=== PATIENT | female | born 1935 | race Caucasian/White ===

== ENCOUNTER 2017-10-15 18:14 | Emergency (ER) | payer MEDICARE ==
[2017-10-15] MEDS ORDERED: NS 0.9% 1000 ML* 1,000 ML IV ONE (19:11)
[2017-10-15 19:36] LABS: ABS Basophils 0.1 10^3/ul (0-0.2); ABS Eosinophils 0.2 10^3/ul (0-0.6); ABS Lymphocytes 1.9 10^3/ul (1.0-4.8); ABS Monocytes 0.8 10^3/ul (0-0.8); ABS Neutrophils 5.5 10^3/ul (1.5-7.7); ABS Nucleated RBC 0 10^3/ul; Eosinophil % 1.9 % (0-6); Hematocrit 39 % (35-47); Hemoglobin 13.2 g/dl (12.0-16.0); Lymphocyte % 22.8 % (25-47); Mean Corpuscular HGB Conc 34 g/dl (31-36); Mean Corpuscular Hemoglobin 29 pg (27-31); Mean Corpuscular Volume 86 fL (80-97); Mean Platelet Volume 8 um3 (7.4-10.4); Nucleated Red Blood Cells % 0.1; Platelet Count 246 10^3/ul (150-450); Red Blood Count 4.52 10^6/ul (4.0-5.4); Red Cell Distribution Width 14 % (10.5-15); White Blood Count 8.4 10^3/ul (3.5-10.8)
[2017-10-15 19:46] LABS: INR 0.91 (0.77-1.02)
[2017-10-15 19:50] LABS: EGFR Non-African American 35.6 (>60)
--- NOTE | 2017-10-15 21:17 | ED ---
Genny Stone Julia, scribed for Que Hutchinson MD on 10/15/17 at 1914 . GI/ HPI - HPI Summary HPI Summary: This patient is a 82 year old F presenting to [facility] accompanied by her daughter with a chief complaint of four bouts of rectal bleeding beginning at 17:45 . She states the first time was dark red blood with bright red blood since. Patient denies abdominal pain, dizziness, and changes in bowel habits. She had a colon resection in 2007 and has a history of diverticulitis. She is not on blood thinners. - History of Current Complaint Chief Complaint: EDGIBleed Stated Complaint: RECTAL BLEEDING Hx Obtained From: Patient Onset/Duration: Started Hours Ago Timing: Constant Vaginal Bleeding Description: Bright Red Pain Intensity: 0 Location of Pain: None Associated Signs and Symptoms: Positive: Other: - no bowel changes. Negative: Dizziness, Abdominal Pain - Allergy/Home Medications Allergies/Adverse Reactions: Allergies Allergy/AdvReac Type Severity Reaction Status Date / Time Sulfa (Sulfonamide Allergy See Comment Verified 10/15/17 19:18 Antibiotics) Home Medications: Home Medications L.acidoph,Paracasei, B.lactis [Probiotic] 1 each PO DAILY 10/15/17 [History Confirmed 10/15/17] Multivitamins/Minerals TAB* [Theragran/minerals TAB*] 1 tab PO DAILY 10/15/17 [ History Confirmed 10/15/17] PMH/Surg Hx/FS Hx/Imm Hx Endocrine/Hematology History: Denies: Hx Diabetes Cardiovascular History: Denies: Hx Hypertension, Hx Pacemaker/ICD Sensory History: Denies: Hx Hearing Aid Psychiatric History: Denies: Hx Panic Disorder - Surgical History Surgery Procedure, Year, and Place: RIGHT HIP. CATARACTS. RT LEG SURGERY WITH JOSE ROBERTO AND 7 SCREWS Infectious Disease History: No Infectious Disease History: Denies: Traveled Outside the [place] in Last 30 Days - Family History Known Family History: Negative: Cardiac Disease, Diabetes - Social History Occupation: Retired Review of Systems Gastrointestinal: Other - rectal bleeding Positive: Other - bowel changes. Negative: Abdominal Pain Neurological: Negative - dizziness All Other Systems Reviewed And Are Negative: Yes Physical Exam - Summary Physical Exam Summary: Appearance: Well appearing, no pain distress Skin: warm, dry, reflects adequate perfusion Head/face: normal Eyes: EOMI, MARY ENT: normal Neck: supple, non-tender Respiratory: CTA, breath sounds present Cardiovascular: RRR, pulses symmetrical Abdomen: non-tender, soft Bowel: present Musculoskeletal: normal, strength/ROM intact Neuro: normal, sensory motor intact, A&Ox3 Rectal Exam: bright red blood per rectum, no rectal masses Triage Information Reviewed: Yes Vital Signs On Initial Exam: Initial Vitals Temp Pulse Resp BP Pulse Ox 97.6 F 106 17 191/91 95 10/15/17 18:25 10/15/17 18:25 10/15/17 18:25 10/15/17 18:25 10/15/17 18:25 Vital Signs Reviewed: Yes Diagnostics - Vital Signs Vital Signs Temp Pulse Resp BP Pulse Ox 10/15/17 18:25 97.6 F 106 17 191/91 95 - Laboratory Lab Results: Lab Results 10/15/17 10/15/17 10/15/17 Range/Units 19:27 19:27 19:27 WBC 8.4 (3.5-10.8) 10^3/ul RBC 4.52 (4.0-5.4) 10^6/ul Hgb 13.2 (12.0-16.0) g/dl Hct 39 (35-47) % MCV 86 (80-97) fL MCH 29 (27-31) pg MCHC 34 (31-36) g/dl RDW 14 (10.5-15) % Plt Count 246 (150-450) 10^3/ul MPV 8 (7.4-10.4) um3 Neut % (Auto) 65.1 (38-83) % Lymph % (Auto) 22.8 L (25-47) % Reeves % (Auto) 9.1 H (0-7) % Eos % (Auto) 1.9 (0-6) % Baso % (Auto) 1.1 (0-2) % Absolute Neuts (auto) 5.5 (1.5-7.7) 10^3/ul Absolute Lymphs (auto) 1.9 (1.0-4.8) 10^3/ul Absolute Monos (auto) 0.8 (0-0.8) 10^3/ul Absolute Eos (auto) 0.2 (0-0.6) 10^3/ul Absolute Basos (auto) 0.1 (0-0.2) 10^3/ul Absolute Nucleated RBC 0 10^3/ul Nucleated RBC % 0.1 INR (Anticoag Therapy) 0.91 (0.77-1.02) Sodium 137 (133-145) mmol/L Potassium 4.2 (3.5-5.0) mmol/L Chloride 102 (101-111) mmol/L Carbon Dioxide 28 (22-32) mmol/L Anion Gap 7 (2-11) mmol/L BUN 25 H (6-24) mg/dL Creatinine 1.42 H (0.51-0.95) mg/dL Est GFR ( Amer) 45.8 (>60) Est GFR (Non-Af Amer) 35.6 (>60) BUN/Creatinine Ratio 17.6 (8-20) Glucose 109 H (70-100) mg/dL Calcium 9.5 (8.6-10.3) mg/dL Total Bilirubin 0.30 (0.2-1.0) mg/dL AST 18 (13-39) U/L ALT 11 (7-52) U/L Alkaline Phosphatase 76 (34-104) U/L Total Protein 7.5 (6.4-8.9) g/dL Albumin 4.3 (3.2-5.2) g/dL Globulin 3.2 (2-4) g/dL Albumin/Globulin Ratio 1.3 (1-3) Blood Type Antibody Screen 10/15/17 Range/Units 19:27 WBC (3.5-10.8) 10^3/ul RBC (4.0-5.4) 10^6/ul Hgb (12.0-16.0) g/dl Hct (35-47) % MCV (80-97) fL MCH (27-31) pg MCHC (31-36) g/dl RDW (10.5-15) % Plt Count (150-450) 10^3/ul MPV (7.4-10.4) um3 Neut % (Auto) (38-83) % Lymph % (Auto) (25-47) % Reeves % (Auto) (0-7) % Eos % (Auto) (0-6) % Baso % (Auto) (0-2) % Absolute Neuts (auto) (1.5-7.7) 10^3/ul Absolute Lymphs (auto) (1.0-4.8) 10^3/ul Absolute Monos (auto) (0-0.8) 10^3/ul Absolute Eos (auto) (0-0.6) 10^3/ul Absolute Basos (auto) (0-0.2) 10^3/ul Absolute Nucleated RBC 10^3/ul Nucleated RBC % INR (Anticoag Therapy) (0.77-1.02) Sodium (133-145) mmol/L Potassium (3.5-5.0) mmol/L Chloride (101-111) mmol/L Carbon Dioxide (22-32) mmol/L Anion Gap (2-11) mmol/L BUN (6-24) mg/dL Creatinine (0.51-0.95) mg/dL Est GFR ( Amer) (>60) Est GFR (Non-Af Amer) (>60) BUN/Creatinine Ratio (8-20) Glucose (70-100) mg/dL Calcium (8.6-10.3) mg/dL Total Bilirubin (0.2-1.0) mg/dL AST (13-39) U/L ALT (7-52) U/L Alkaline Phosphatase (34-104) U/L Total Protein (6.4-8.9) g/dL Albumin (3.2-5.2) g/dL Globulin (2-4) g/dL Albumin/Globulin Ratio (1-3) Blood Type B Positive Antibody Screen Negative Result Diagrams: 10/15/17 19:27 10/15/17 19:27 Lab Statement: Any lab studies that have been ordered have been reviewed, and results considered in the medical decision making process. GIGU Course/Dx - Course Course Of Treatment: Patient presents with four bouts of rectal bleeding with bright red blood since 17:45 today. Rectal exam reveals bright red blood without masses. Bloodowork is unremarkable. Patient is given IV fluids. Due to lack of Gastrointestinal coverage patient will be transferred for a higher level of care. - Diagnoses Provider Diagnoses: Lower GI bleed, History of diverticulitis Discharge - Discharge Plan Condition: Fair Disposition: TRANS [facility] F[facility] Discharge Disposition Comment: transfer to [facility] for GI evaluation Referrals: Rupert Gil MD [Primary Care Provider] - The documentation as recorded by the Genny bundy Julia accurately reflects the service I personally performed and the decisions made by me, Que Hutchinson MD.
[2017-10-15 21:35] VITALS: BP 166/100
[2017-10-15] MEDS ORDERED: Albuterol HFA INHALER* 8 gm MDI INH ONE (21:42)
== END 2017-10-15 21:32 | disposition short-term general hospital (02) ==
LOC: ED 18:14
DX: K92.2 Gastrointestinal hemorrhage, unspecified (principal); Z87.19 Personal history of other diseases of the digestive system; Z88.2 Allergy status to sulfonamides
CPT/HCPCS: 36415; 80053; 85025; 85610; 86850; 86900; 86901; 96360; 96361; 99283; A9270-GY

== ENCOUNTER 2018-11-07 09:17 | Observation (INO) | payer MEDICARE ==
--- OUTSIDE RECORDS SUMMARY | 2018-11-07 09:37 | XMS REPORT | Continuity of Care Document ---
:1935 External Reference #:[id number] Author Name Rupert Gil MD Address [address] [place] [address] Care Team Providers Name Role Phone Rupert Gil MD Care Team Information Inspector Wreath Unavailable Payers Date Identification Numbers Payment Provider Subscriber Expires: 2015 Policy Number: [id number] [facility] Maria M Lindo Group Number: [id number] [address] PayID: [id number] [place] [address] Effective: 2015 Policy Number: [id number] [facility] Maria M Lindo PayID: [id number] [address] [place] [address] Advance Directives Description No Information Available Problems Date Description Provider Status Onset: 09/16/2013 Benign essential hypertension Karon Anne M.D., R.D. Active Family History Date Family Member(s) Observation Comments Father due to Cancer () Mother due to "Old Age" () Children 3 Children daughters Siblings 5 brothers and 1 sister Siblings 4 of 6 First Brother due to Cancer () Second Brother Hypertension Social History Type Date Description Comments Sex Unknown Marital Status Diet Healthy, Well Balanced Chicken and vegetables often. Drinks milk BID. Tobacco Use Start: Unknown current cigarette smoker Smoked a carton/week before sick. Now a carton/3 weeks. Started smoking at age 34. About a half a pack a day still as of 03/2011. Cigarette Use Quit - Age 76 Cold turkey after she broke her hip. ETOH Use Rarely consumes alcohol Tobacco Use Start: Unknown Patient is a current smoker, smokes every day Exercise Type/Frequency Exercises regularly in her living room. Walks in her mobile home. Does PT exercises for her legs. Allergies, Adverse Reactions, Alerts Date Description Reaction Status Severity Comments 09/27/2010 Sulfa Active Medications Medication Date Status Form Strength Qnty SIG Indications Ordering Provider Hydrochlorothiazid 11/04 Active Tablets 25mg 30tab 1 by mouth I10 Rupert e /2018 s every day MD Jeffery Aerochamber Plus 01/22 Active Misc 1unit use as J44.9 s directed Daniel, with MAT REPAIRER inhalers Proair HFA 12/02 Active Aerosol 108(90Bas 8.5un Inhale 1-2 Karon e) its Puffs Every rafaela Anne/Act 6 Hours as Charles, Needed. R.D. Acidophilus 08/26 Active Tablets Karon Probiotic /2013 Smiley Anne., R.D. Acetaminophen 01/01 Active prn pain Karon /2011 Charles Anne, R.D. Multivitamin & 09/27 Active Liquid Karon Mineral /2010 Smiley Anne., R.D. Incruse Ellipta Active Aerosol 62.5mcg/I Inhale One Unknown nh puff By Mouth Every Day For Chronic Obstructive Lung Disease Incruse Ellipta 01/23 Hx Aerosol 62.5mcg/I 60uni inhale one nh ts puff by Jeffery - mouth every , 02/24 day chronic obstructive lung disease Spiriva Respimat 01/22 Hx Aerosol 2.5mcg/Ac 8gm Inhale 2 J44.9 t puffs by Shortle, - mouth daily MAT REPAIRER 11/04 for chronic /2019 obstructive lung disease Spacer, Pediatric 01/22 Hx 1unit to use with J44.9 s inhalers Daniel, - MAT REPAIRER 01/22 Cipro 01/13 Hx Tablets 500mg 20tab 1 pill by R19.7 Shaw s mouth twice R. Storm, - a day for PIG FURNACE OPERATOR-C 01/23 10 Striverdi Respimat 12/16 Hx Aerosol 2.5mcg/Ac 4gm Inhale 2 J44.9 Rupert /2017 t puffs by Princeetcarmita - mouth daily , 01/23 for chronic /2017 obstructive lung disease Zyrtec Allergy 12/02 Hx Tablets 10mg 30tab 1 by mouth R05 s every day Jeffery - , 11/04 Colace 04/29 Hx Capsules 100mg 30cap 2 tab by K59.00 s mouth daily Jeffery - for a week , 11/04 Amoxicillin 05/07 Hx Tablets 875mg 20tab 1 tablet 785.6 s bid x 10 Pk, - days PIG FURNACE OPERATOR-C 08/26 Neomycin/Polymyxin 01/11 Hx Solution 3.5-57681 1bott 3 drops in 380.22 Shawnti / /2012 -1 le right ear RGenaro Portillo, - qid for 5 PIG FURNACE OPERATOR-C 08/26 days until resolved Ciprofloxacin 03/30 Hx 250mg 14uni 1 po bid Rashaun Flowers M.D., 01/01 R.D. /2011 Hydrocortisone/León 03/28 Hx Solution QS As directed Karon tic Acid Otic /2010 Genaro Anne M.D., 01/01 R.D. /2011 Calcium + D 09/27 Hx Tablets 600-200mg 1 po qd -Unit Rashaun Anne M.D., 11/06 R.D. /2017 Aspir-81 09/27 Hx Tablets 81mg 30tab 1 po qd Rashaun Askew M.D., 11/04 R.D. /2018 Vitamin B-12 09/27 Hx Tablets 1000mcg 1 po qd Rashaun Vu M.D., 04/29 R.D. /2015 Vitamin C 09/27 Hx Chewtabs 250mg Rashaun Anne M.D., 04/29 R.D. /2015 Hydrochlorothiazid 09/27 Hx Tablets 25mg 45tab / po qd Rashaun Womack M.D., 03/28 R.D. /2010 Stiolto Respimat Hx Aerosol 2.5-2.5mc J44.9 Unknown /0000 g/Act - 01/23 Immunizations CPT Code Status Date Vaccine Lot # [id number] Given 05/11/2003 Pneumovax 23 (PPSV23) 65+ years or high risk 2 to 64 year old [id number] Refused 01/13/2017 Influenza Virus Vaccine, Quadrivalent, 3 Yr > Quad , Preserv Free Vital Signs Date Vital Result Comment 11/04/2018 9:19am Weight 132.00 lb Weight 59.875 kg BP Systolic 150 mmHg BP Diastolic 80 mmHg Heart Rate 84 /min Body Temperature 97.7 F Respiratory Rate 20 /min 02/24/2018 2:18pm Weight 130.00 lb Weight 58.968 kg BP Systolic 160 mmHg BP Diastolic 72 mmHg Heart Rate 72 /min Body Temperature 98.2 F Respiratory Rate 16 /min 01/22/2018 4:15pm Weight 129.00 lb Weight 58.514 kg BP Systolic 168 mmHg BP Diastolic 92 mmHg Heart Rate 100 /min Body Temperature 98.7 F Respiratory Rate 16 /min O2 % BldC Oximetry 94 % 11/06/2017 9:03am Weight 128.00 lb Weight 58.061 kg BP Systolic 160 mmHg BP Diastolic 80 mmHg Heart Rate 88 /min Body Temperature 97.3 F Respiratory Rate 15 /min O2 % BldC Oximetry 98 % 01/23/2017 2:26pm Weight 126.00 lb Weight 57.154 kg BP Systolic 146 mmHg BP Diastolic 78 mmHg Heart Rate 92 /min Body Temperature 98.4 F Respiratory Rate 24 /min O2 % BldC Oximetry 92 % 01/13/2017 3:46pm Weight 127.00 lb Weight 57.607 kg BP Systolic 130 mmHg BP Diastolic 68 mmHg Heart Rate 91 /min Body Temperature 99.1 F Respiratory Rate 24 /min O2 % BldC Oximetry 93 % 12/16/2016 11:46am Weight 129.00 lb Weight 58.514 kg BP Systolic 148 mmHg BP Diastolic 88 mmHg Heart Rate 98 /min Body Temperature 99.3 F Respiratory Rate 18 /min O2 % BldC Oximetry 97 % 12/02/2016 2:51pm Weight 129.00 lb Weight 58.514 kg BP Systolic 170 mmHg BP Diastolic 82 mmHg Heart Rate 104 /min Body Temperature 99.3 F O2 % BldC Oximetry 92 % 97 after treatment 04/29/2016 10:45am Weight 129.00 lb Weight 58.514 kg BP Systolic 148 mmHg BP Diastolic 78 mmHg Heart Rate 98 /min Body Temperature 98.2 F Respiratory Rate 17 /min O2 % BldC Oximetry 98 % 11/27/2015 11:26am Weight 129.00 lb Weight 58.514 kg BP Systolic 150 mmHg BP Diastolic 93 mmHg Heart Rate 96 /min Body Temperature 99.7 F O2 % BldC Oximetry 96 % 08/26/2013 9:25am Weight 132.00 lb Weight 59.875 kg BP Systolic 166 mmHg BP Diastolic 78 mmHg Heart Rate 116 /min Height 63.5 inches 5'3.50" BMI (Body Mass Index) 23.0 kg/m2 05/07/2013 2:52pm Weight 130.00 lb Weight 58.968 kg BP Systolic 130 mmHg BP Diastolic 80 mmHg Heart Rate 88 /min Body Temperature 98.6 F 01/11/2013 4:50pm Weight 131.00 lb Weight 59.422 kg BP Systolic 162 mmHg BP Diastolic 68 mmHg Heart Rate 88 /min Body Temperature 99.9 F 01/02/2012 2:27pm Weight 116.00 lb Weight 52.618 kg BP Systolic 120 mmHg BP Diastolic 72 mmHg Heart Rate 80 /min Body Temperature 99.0 F 03/28/2011 1:20pm Weight 111.00 lb Weight 50.350 kg BP Systolic 130 mmHg BP Diastolic 60 mmHg Heart Rate 96 /min Height 63.5 inches 5'3.50" BMI (Body Mass Index) 19.4 kg/m2 09/27/2010 10:51am Weight 113.00 lb Weight 51.257 kg BP Systolic 144 mmHg BP Diastolic 50 mmHg Heart Rate 96 /min Height 63.5 inches 5'3.50" BMI (Body Mass Index) 19.7 kg/m2 Results Test Date Facility Test Result H/L Range Note Laboratory test 11/04/2018 [facility] Vitamin B12 < pending> finding [phone] Folic Acid (Folate) <pending> Laboratory test 11/06/2017 [facility] Hemoglobin 11.1 finding (607)- - CBC Auto Diff 10/15/2017 [facility] White Blood Count 8.4 10^3/uL N 3.5-10. 3 [phone] Red Blood Count 4.52 10^6/uL N 4.0-5.4 Hemoglobin 13.2 g/dL N 12.0-16.0 Hematocrit 39 % N 35-47 Mean Corpuscular Volume 86 fL N 80-97 Mean Corpuscular Hemoglobin 29 pg N 27-31 Mean Corpuscular HGB Conc 34 g/dL N 31-36 Red Cell Distribution Width 14 % N 10.5-15 Platelet Count 246 10^3/uL N 150-450 Mean Platelet Volume 8 um3 N 7.4-10.4 Abs Neutrophils 5.5 10^3/uL N 1.5-7.7 Abs Lymphocytes 1.9 10^3/uL N 1.0-4.8 Abs Monocytes 0.8 10^3/uL N 0-0.8 Abs Eosinophils 0.2 10^3/uL N 0-0.6 Abs Basophils 0.1 10^3/uL N 0-0.2 Abs Nucleated RBC 0 10^3/uL Granulocyte % 65.1 % N 38-83 Lymphocyte % 22.8 % Low 25-47 Monocyte % 9.1 % High 0-7 Eosinophil % 1.9 % N 0-6 Basophil % 1.1 % N 0-2 Nucleated Red Blood Cells % 0.1 Inr/Protime 10/15/2017 [facility] Inr 0.91 N 0.77- 1.02 [phone] Type & Screen 10/15/2017 [facility] Patient Blood B Positive [phone] Type Antibody Screen NEGATIVE Comp Metabolic Panel 10/15/2017 [facility] Sodium 137 mmol/L N 133-145 [phone] Potassium 4.2 mmol/L N 3.5-5.0 Chloride 102 mmol/L N 101-111 Co2 Carbon Dioxide 28 mmol/L N 22-32 Anion Gap 7 mmol/L N 2-11 Glucose 109 mg/dL High 70-100 Blood Urea Nitrogen 25 mg/dL High 6-24 Creatinine 1.42 mg/dL High 0.51-0.95 BUN/Creatinine Ratio 17.6 N 8-20 Calcium 9.5 mg/dL N 8.6-10.3 Total Protein 7.5 g/dL N 6.4-8.9 Albumin 4.3 g/dL N 3.2-5.2 Globulin 3.2 g/dL N 2-4 Albumin/Globulin Ratio 1.3 N 1-3 Total Bilirubin 0.30 mg/dL N 0.2-1.0 Alkaline Phosphatase 76 U/L N 34-104 Alt 11 U/L N 7-52 Ast 18 U/L N 13-39 Egfr Non- 35.6 >60 Egfr 45.8 >60 2 Laboratory test 01/14/2017 [facility] Fecal Lactoferrin SEE RESULT 3 finding [phone] (Stool WBC) BELOW C Difficile PCR SEE RESULT BELOW 4 Stool Panel (CMC) 01/13/2017 [facility] Stool Culture <pending> [phone] Fecal Lactoferrin (Stool WBC) <pending> O&P Ova & Parasites Screen <pending> C Difficile PCR <pending> Stool Panel 04/29/2016 [facility] Stool For SEE RESULT 5 (CMC) [phone] Blood BELOW CBC Auto Diff 08/26/2013 [facility] White Blood 6.7 10^3/uL 4.8-10.8 [phone] Count Red Blood Count 5.20 10^6/uL 4.0-5.4 Hemoglobin 15.3 g/dL 12.0-16.0 Hematocrit 45 % 35-47 Mean Corpuscular Volume 87 fL 80-97 Mean Corpuscular Hemoglobin 29 pg 27-31 Mean Corpuscular HGB Conc 34 g/dL 31-36 Red Cell Distribution Width 14 % 10.5-15 Platelet Count 270 10^3/uL 150-450 Mean Platelet Volume 9 um3 7.4-10.4 Abs Neutrophils 4.2 10^3/uL 1.5-7.7 Abs Lymphocytes 1.8 10^3/uL 1.0-4.8 Abs Monocytes 0.6 10^3/uL 0-0.8 Abs Eosinophils 0.1 10^3/uL 0-0.6 Abs Basophils 0.1 10^3/uL 0-0.2 Abs Nucleated RBC 0 10^3/uL Granulocyte % 62.4 % 38-83 Lymphocyte % 27.2 % 25-47 Monocyte % 8.6 % 1-9 Eosinophil % 0.9 % 0-6 Basophil % 0.9 % 0-2 Nucleated Red Blood Cells % 0.1 Comp Metabolic Panel 08/26/2013 [facility] Sodium 137 mmol/L 133-145 [phone] Potassium 3.9 mmol/L 3.5-5.0 Chloride 101 mmol/L 101-111 Co2 Carbon Dioxide 27.0 mmol/L 22-32 Anion Gap 9.0 mmol/L 2-11 Glucose 96 mg/dL 70-100 Blood Urea Nitrogen 12 mg/dL 6-24 Creatinine 0.70 mg/dL 0.50-1.40 BUN/Creatinine Ratio 17.1 8-20 Calcium 10.5 mg/dL High 8.1-9.9 Total Protein 7.6 g/dL 6.2-8.1 Albumin 4.8 g/dL 3.2-5.2 Globulin 2.8 g/dL 2-4 Albumin/Globulin Ratio 1.7 1-3 Total Bilirubin 0.5 mg/dL 0.4-1.5 Alkaline Phosphatase 72 U/L 30-110 Alt 16 U/L 14-54 Ast 24 U/L 12-42 Egfr Non- 81.4 >60 Egfr 104.6 >60 6 Lipid Profile 08/26/2013 [facility] Triglycerides 137 mg/dL 40-200 (Trig/Chol/HDL) [phone] Cholesterol 265 mg/dL High Less than 200 HDL Cholesterol 75 mg/dL High 40-60 7 Cholesterol/HDL Ratio 3.5 Average 1-4.44 LDL Cholesterol 162.6 High Less Than 100 8 Urine DIP 08/26/2013 [facility] House [facility] Leukocytes NEG Neg (607)- - Urine Nitrites NEG Neg Urine pH 5 5-6 Total Protein, Urine NEG Neg Urine Glucose NORM Norm Urine Ketones NEG Neg Urobilinogen NORM Norm Urine Bilirubin NEG Neg Urine Blood NEG Neg Specific Seward 1.020 1.01-1.02 PT W/Inr 10/23/2011 [facility] Inr 0.94 0.88-1.13 9 [phone] Protime 11.1 SEC 10.3-13.5 10 Laboratory test 10/23/2011 [facility] PTT (Aptt) 23.2 SEC Low 25.1-38.5 finding [phone] Comp Metabolic 10/23/2011 [facility] Sodium 136 mmol/ L 135-145 Panel [phone] Potassium 3.5 mmol/L 3.5-5.0 Chloride 101 mmol/L 101-111 Co2 (Carbon Dioxide) 25.0 mmol/L 22-32 Anion Gap 10.0 mmol/L 2-11 11 Glucose 109 mg/dL High 70-100 BUN 16 mg/dL 6-24 Creatinine 0.6 mg/dL 0.50-1.40 One Over Creatinine 1.66 BUN/Creatinine Ratio 26.7 High 8-20 Calcium 8.5 mg/dL 8.1-9.9 Total Protein 6.5 GM/DL 6.2-8.1 Albumin 3.5 GM/DL 3.2-5.2 Globulin 3.0 GM/DL 2-4 Albumin/Globulin Ratio 1.2 1-3 Bilirubin Total 0.7 mg/dL 0.4-1.5 12 Alkaline Phosphatase 78 U/L 30-110 Alt (SGPT) 17 U/L 14-54 Ast (Sgot) 22 U/L 12-42 eGFR Non- 97.7 > 60 eGFR 125.7 > 60 13 Laboratory test 10/23/2011 [facility] Lipase 19 U/L Low 22-51 finding [phone] CBC Auto Diff 10/23/2011 [facility] White Blood 10.0 CUMM 4.8-10.8 [phone] Count Red Cell Count 3.81 CUMM Low 4.2-5.4 Hemoglobin 11.5 g/dL Low 12.0-16.0 Hematocrit 33 % Low 35-47 Mean Corpuscular Volume 87 um3 79-97 Mean Corpuscular Hemoglob 30 pg 27-31 Mean Corpuscular HGB Cone 35 g/dL 32-36 Redcell Distribution WDTH 14 % 10.5-15 Platelet Count 274 CUMM 150-450 Mean Platelet Volume 7.8 um3 7.4-10.4 14 Manual Differential 10/23/2011 [facility] Polysegmented 79 % 38-83 [phone] Neutrophil Lymphocyte 12 % Low 25-47 Monocyte 9 % 0-13 Absolute Neutrophil Count 7.9 RBC Morphology NORMAL Urinalysis 10/23/2011 [facility] Ua Color YELLOW Yellow W/Microscopic [phone] Appearance-Urine CLEAR Clear Specific Seward-Ur 1.005 Low 1.010-1.030 Esterase-Urine NEGATIVE Negative Nitrite NEGATIVE Negative Kricwihszogi-Un-BYG NEGATIVE Negative Protein-Urine NEGATIVE Negative PH-Urine 6.5 5-9 Blood-Urine TRACE Abnormal Negative Ketones-Urine NEGATIVE Negative Bilirubin-Ur NEGATIVE Negative Glucose-Urine NEGATIVE Negative WBC-Urine 0-2 0-5 RBC-Urine RARE 0-2 Epith Cells-Ur SMALL None Bacteria-Urine 1+ None Laboratory test 07/18/2011 [facility] PTT (Aptt) 22.3 Low 25.15-38.53 finding [phone] CBC Auto Diff 07/18/2011 [facility] White Blood 13.7 CUMM High 4.8-10.8 [phone] Count Red Cell Count 4.27 CUMM 4.2-5.4 Hemoglobin 13.2 g/dL 12.0-16.0 Hematocrit 38 % 35-47 Mean Corpuscular Volume 90 um3 79-97 Mean Corpuscular Hemoglob 31 pg 27-31 Mean Corpuscular HGB Cone 34 g/dL 32-36 Redcell Distribution WDTH 13 % 10.5-15 Platelet Count 251 CUMM 150-450 Mean Platelet Volume 8.1 um3 7.4-10.4 15 Manual 07/18/2011 [facility] Polysegmented 91 % High 38-83 Differential [phone] Neutrophil Lymphocyte 7 % Low 25-47 Monocyte 2 % 0-13 Absolute Neutrophil Count 12.4 RBC Morphology NORMAL PT W/Inr 07/18/2011 [facility] Inr 0.98 0.88-1.13 16 [phone] Protime 11.5 SEC 10.3-13.5 17 Urinalysis 03/28/2011 [facility] Ua Color YELLOW Yellow W/Microscopic [phone] Appearance-Urine CLEAR Clear Specific Seward-Ur 1.023 1.010-1.030 Esterase-Urine 2+ Abnormal Negative Nitrite NEGATIVE Negative Rtqccprudrqq-Aq-KYZ NEGATIVE Negative Protein-Urine NEGATIVE Negative PH-Urine 6.0 5-9 Blood-Urine NEGATIVE Negative Ketones-Urine NEGATIVE Negative Bilirubin-Ur NEGATIVE Negative Glucose-Urine NEGATIVE Negative WBC-Urine 15-20 Abnormal 0-5 RBC-Urine 0-2 0-2 Epith Cells-Ur FEW None Bacteria-Urine TRACE None Sensitivities For Urine 03/28/2011 [facility] Ampicillin >=32 R Culture [phone] Amikacin <=2 S Ciprofloxacin <=0.25 S Ceftriaxone <=1 S Cefazolin 16 I Nitrofurantoin <=16 S Gentamicin <=1 S Imipenem <=1 S Levofloxacin <=0.12 S Trimeth-Sulfa <=20 S Ceftazidime <=1 S Tigecycline <=0.5 S Piperacillin/Tazobactam KB 29 S CBC Auto Diff 03/28/2011 [facility] White Blood 8.1 CUMM 4.8-10.8 18 [phone] Count Red Cell Count 4.73 CUMM 4.2-5.4 Hemoglobin 14.4 g/dL 12.0-16.0 Hematocrit 43 % 35-47 Mean Corpuscular Volume 90 um3 79-97 Mean Corpuscular Hemoglob 31 pg 27-31 Mean Corpuscular HGB Cone 34 g/dL 32-36 Redcell Distribution WDTH 14 % 10.5-15 Platelet Count 251 CUMM 150-450 Mean Platelet Volume 8.7 um3 7.4-10.4 Gran % 64.6 % 38-83 Lymph % 26.3 % 25-47 Mononuclear % 7.7 % 1-9 Eosinophil % 0.7 % 0-6 Basophil % 0.7 % 0-2 Abs Lymphs 2.1 1.0-4.8 Abs Mononuclear 0.6 0-0.8 Absolute Neutrophil Count 5.3 1.5-7.7 Abs Eosinophils 0.1 0-0.6 Abs Basophils 0.1 0-0.2 Comp Metabolic Panel 03/28/2011 [facility] Sodium 140 mmol/L 135-145 [phone] Potassium 3.6 mmol/L 3.5-5.0 Chloride 104 mmol/L 101-111 Co2 (Carbon Dioxide) 29.0 mmol/L 22-32 Anion Gap 7.0 mmol/L 2-11 19 Glucose 70 mg/dL 70-100 BUN 17 mg/dL 6-24 Creatinine 0.80 mg/dL 0.50-1.40 One Over Creatinine 1.20 BUN/Creatinine Ratio 21.3 High 8-20 Calcium 9.3 mg/dL 8.1-9.9 Total Protein 7.2 GM/DL 6.2-8.1 Albumin 4.4 GM/DL 3.2-5.2 Globulin 2.8 GM/DL 2-4 Albumin/Globulin Ratio 1.6 1-3 Bilirubin Total 0.6 mg/dL 0.4-1.5 20 Alkaline Phosphatase 76 U/L 30-110 Alt (SGPT) 14 U/L 14-54 Ast (Sgot) 21 U/L 12-42 eGFR Non- 70.3 > 60 eGFR 90.4 > 60 21 Laboratory 03/28/2011 [facility] TSH 1.04 MIU/ML 0.34-5.60 test finding [phone] Urine Culture 03/28/2011 [facility] Urine Culture ESCHERICHIA 22 & Sensitivi [phone] Sensitivi COLI Lipid Profile 03/28/2011 [facility] Triglyceride 110 mg/dL 40-200 (Trig/Chol/HD [phone] L) Cholesterol 207 mg/dL High Less Than 200 23 High Density Lipoprotein 58 mg/dL 40-60 24 Cholesterol/HDL Ratio 3.57 AVERAGE 1-4.44 Low Density Lipoprotein 127 mg/dL High Less Than 100 25 Urine DIP 03/28/2011 [facility] House [facility] Leukocytes ++ Neg (607)- - Urine Nitrites NEG Neg Urine pH 5 5-6 Total Protein, Urine TRACE Neg Urine Glucose NORM Norm Urine Ketones NEG Neg Urobilinogen NORM Norm Urine Bilirubin NEG Neg Urine Blood TRACE Neg Specific Seward NA Low 1.01-1.02 1 RECTAL BLEEDING 2 Because ethnic data is not always readily available, this report includes an eGFR for both -Americans and non- Americans. The National Kidney Disease Education Program (NKDEP) does not endorse the use of the MDRD equation for patients that are not between the ages of 18 and 70, are , have extremes of body size, muscle mass, or nutritional status, or are non- or non-. According to the National Kidney Foundation, irrespective of diagnosis, the stage of the disease is based on the level of kidney function: Stage Description GFR(mL/min/1.73 m(2)) 1 Kidney damage with normal or decreased GFR 90 2 Kidney damage with mild decrease in GFR 60-89 3 Moderate decrease in GFR 30-59 4 Severe decrease in GFR 15-29 5 Kidney failure <15 (or dialysis) 3 SEE RESULT BELOW Name: MARIA M LINDO : [address]: Grace Portillo NP Acct: [id number] Unit: [id number] AGE: 81 Location: [facility] Re01/14/17 SEX: F Status: REG REF SPEC: [id number] YARITZA: 01/14/[address]: Grace Portillo NP REQ: [id number] RECD: 01/14/17 STATUS: RES _ SOURCE: STOOL SPDESC: ORDERED: CGenaro bradshaw PCR, Stool Culture, Fecal Lactoferr, Occult Bl, Scn, O P: Luz Marina Procedure Result Reported Site Stool Culture PENDING Stool Specimen Description PENDING Shiga Toxin 1 2 PENDING C. difficile PCR PENDING Fecal Lactoferrin (Stool WBC) Final 01/14/17- 1606 ML Fecal Lactoferrin Positive by Immunoassay TEST LIMITATIONS: Assay detects elevated levels of lactoferrin released from fecal leukocytes as a marker of intestinal inflammation. The test may not be appropriate in immunocompromised persons. Fecal samples from breast fed infants should not be used with this assay. Stool Occult Blood (1) Final 01/14/17- 1610 ML Stool Occult Blood Positive Collection Date (1) 01/13/17 CONTINUED ON NEXT PAGE * ML=Testing performed at [facility] DEPARTMENT OF PATHOLOGY, [address] [place] [address] Brown Loo M.D. Director [facility] # [id number] Patient: MARIA M LINDO [id number] (Continued) Specimen: [id number] Collected: 01/14/17 Received: 01/14/17-1345 (Continued) Procedure Result Reported Site O P: Giardia/Cryptospor Screen PENDING * ML - [facility] LAB ([facility]) . END OF REPORT * ML=Testing performed at Main Lab DEPARTMENT OF PATHOLOGY, [address] [place] [address] Brown Loo M.D. Director [facility] # [id number] 4 SEE RESULT BELOW Name: MARIA M LINDO : [address]: Grace Portillo NP Acct: [id number] Unit: [id number] AGE: 81 Location: [facility] Re01/14/17 SEX: F Status: REG REF SPEC: [id number] YARITZA: 01/14/[address]: Grace Portillo NP REQ: [id number] RECD: 01/14/17 STATUS: COMP _ SOURCE: STOOL SPDESC: ORDERED: C. diff PCR, Stool Culture, Fecal Lactoferr, Occult Bl, Scn, O P: Luz Marina Procedure Result Reported Site Stool Culture Final 01/16/17- 1050 ML Result No enteric pathogens isolated Testing for Salmonella, Shigella, Aeromonas, Plesiomonas, Yersinia and Campylobacter are included in a Stool Culture. Vibrio spp not routinely tested for in a stool culture. If testing is desired, please request specifically when placing test order. Sensitivities not routinely performed on stool isolates, as antibiotics may prolong the carriage rate of bacteria. Please contact the microbiology lab if sensitivities are required. Stool Specimen Description Final 01/14/17- 1633 ML Stool Color Brown Stool Form Nonformed Stool Consistency Soft Shiga Toxin 1 2 Final 01/15/17- 0920 ML Organism 1 Negative Shiga Toxin 1 2 Immunochromatographic Assay CONTINUED ON NEXT PAGE * ML=Testing performed at Main Lab DEPARTMENT OF PATHOLOGY, [address] [place] [address] Brown Loo M.D. Director [facility] # [id number] Patient: MARIA M LINDO [id number] (Continued) Specimen: [id number] Collected: 01/14/17 Received: 01/14/17 (Continued) Procedure Result Reported Site Shiga Toxin 1 2 Final (continued) 01/15/17919 C. difficile PCR Final 01/14/17- 1631 ML Organism 1 027 Presumptive NEGATIVE Organism 2 Toxigenic C.diff NEGATIVE Fecal Lactoferrin (Stool WBC) Final 01/14/17- 1606 ML Fecal Lactoferrin Positive by Immunoassay TEST LIMITATIONS: Assay detects elevated levels of lactoferrin released from fecal leukocytes as a marker of intestinal inflammation. The test may not be appropriate in immunocompromised persons. Fecal samples from breast fed infants should not be used with this assay. Stool Occult Blood (1) Final 01/14/17- 1610 ML Stool Occult Blood Positive Collection Date (1) 01/13/17 O P: Giardia/Cryptospor Screen Final 01/15/17- 1114 ML Organism 1 Neg Cryptosporidium/Giardia Giardia and cryptosporidium antigen testing performed by enzyme immunoassay. If patient is immunocompromised or has traveled to or is from a developing country, a full ova and parasite exam with microscopic (OPMIC) is recommended. All samples will be held one month in case full ova and parasite testing is requested. Contact the Microbiology Department at [phone]. TEST LIMITATIONS: As with all diagnostic procedures, the results obtained should be used in conjunction with other clinical information available the physician, including confirmation CONTINUED ON NEXT PAGE * ML=Testing performed at Main Lab DEPARTMENT OF PATHOLOGY, [address] [place] [address] Brown Loo M.D. Director [facility] # [id number] Patient: MARIA M LINDO [id number] (Continued) Specimen: [id number] Collected: 01/14/17 Received: 01/14/17 (Continued) Procedure Result Reported Site O P: Giardia/Cryptospor Screen Final (continued) 01/15/17 111 by another method. Negative results can occur in samples containing antigen below lower limits of detection of the assay. One negative specimen does not rule out the possibility of a parasitic infection. To improve detection it is recommended that three specimens be collected on separate days over a period of not more than seven days. The use of colonic washes, aspirates or other diluted sample types has not been established and could affect the performance of the assay. Stool samples contaminated with an oily or particulate base (eg. Barium, mineral oil etc.) could interfere with the test and are not recommended. * ML - [facility] ([facility]) . END OF REPORT * ML=Testing performed at Main Lab DEPARTMENT OF PATHOLOGY, [address] [place] [address] Brown Loo M.D. Director LEYLA # [id number] 5 SEE RESULT BELOW Name: MARIA M LINDO : [address]: Rupert Gil MD Acct: [id number] Unit: [id number] AGE: 81 Location: [facility] Re04/29/16 SEX: F Status: REG REF SPEC: [id number] YARITZA: 04/29/16-[address]: Rupert Gil MD REQ: [id number] RECD: 04/30/16561 STATUS: COMP _ SOURCE: STOOL SPDESC: ORDERED: Hemoccult/R, C. diff PCR/S, Stool Culture/R, Fecal Lactoferr/R, O P : Linda Procedure Result Reported Site Stool Culture Final 05/02/16- 1118 ML Result No enteric pathogens isolated Testing for Salmonella, Shigella, Aeromonas, Plesiomonas, Yersinia and Campylobacter are included in a Stool Culture. Vibrio spp not routinely tested for in a stool culture. If testing is desired, please request specifically when placing test order. Sensitivities not routinely performed on stool isolates, as antibiotics may prolong the carriage rate of bacteria. Please contact the microbiology lab if sensitivities are required. Stool Specimen Description Final 05/01/16- 0853 ML Stool Color Brown Stool Form Formed Stool Consistency Firm Shiga Toxin 1 2 Final 05/01/16- 0822 ML Organism 1 Negative Shiga Toxin 1 2 Immunochromatographic Assay CONTINUED ON NEXT PAGE * ML=Testing performed at Main Lab DEPARTMENT OF PATHOLOGY, [address] [place] [address] Brown Loo M.D. Director LEYLA # [id number] Patient: MARIA M LINDO [id number] (Continued) Specimen: [id number] Collected: 04/29/16-1800 Received: 04/30/16-1446 (Continued) Procedure Result Reported Site Shiga Toxin 1 2 Final (continued) 05/01/16- 821 C. difficile PCR Final 04/30/16- 2040 ML Organism 1 027 Presumptive NEGATIVE Organism 2 Toxigenic C.diff NEGATIVE Fecal Lactoferrin (Stool WBC) Final 05/01/16- 1246 ML Fecal Lactoferrin Positive by Immunoassay TEST LIMITATIONS: Assay detects elevated levels of lactoferrin released from fecal leukocytes as a marker of intestinal inflammation. The test may not be appropriate in immunocompromised persons. Fecal samples from breast fed infants should not be used with this assay. Stool Occult Blood Final 04/30/16- 1939 ML Stool Occult Blood Negative O P: Giardia/Cryptospor Screen Final 05/01/16- 42 ML Organism 1 Neg Cryptosporidium/Giardia Giardia and cryptosporidium antigen testing performed by enzyme immunoassay. If patient is immunocompromised or has traveled to or is from a developing country, a full ova and parasite exam with microscopic (OPMIC) is recommended. All samples will be held one month in case full ova and parasite testing is requested. Contact the Microbiology Department at [phone]. TEST LIMITATIONS: As with all diagnostic procedures, the results obtained should be used in conjunction with other clinical information available the physician, including confirmation by another method. Negative results can occur in samples containing antigen below lower limits of detection of the CONTINUED ON NEXT PAGE * ML=Testing performed at Main Lab DEPARTMENT OF PATHOLOGY, [address] [place] [address] Brown Loo M.D. Director LEYLA # [id number] Patient: MARIA M LINDO [id number] (Continued) Specimen: [id number] Collected: 04/29/16 Received: 04/30/16 (Continued) Procedure Result Reported Site O P: Giardia/Cryptospor Screen Final (continued) 05/01/16841 assay. One negative specimen does not rule out the possibility of a parasitic infection. To improve detection it is recommended that three specimens be collected on separate days over a period of not more than seven days. The use of colonic washes, aspirates or other diluted sample types has not been established and could affect the performance of the assay. Stool samples contaminated with an oily or particulate base (eg. Barium, mineral oil etc.) could interfere with the test and are not recommended. * ML - MAIN LAB ([facility]) . END OF REPORT * ML=Testing performed at Main Lab DEPARTMENT OF PATHOLOGY, [address] [place] [address] Brown Loo M.D. Director [facility] # [id number] 6 Because ethnic data is not always readily available, this report includes an eGFR for both -Americans and non- Americans. The National Kidney Disease Education Program (NKDEP) does not endorse the use of the MDRD equation for patients that are not between the ages of 18 and 70, are , have extremes of body size, muscle mass, or nutritional status, or are non- or non-. According to the National Kidney Foundation, irrespective of diagnosis, the stage of the disease is based on the level of kidney function: Stage Description GFR(mL/min/1.73 m(2)) 1 Kidney damage with normal or decreased GFR 90 2 Kidney damage with mild decrease in GFR 60-89 3 Moderate decrease in GFR 30-59 4 Severe decrease in GFR 15-29 5 Kidney failure <15 (or dialysis) 7 HDL Interpretation: Undesirable: High Risk: Less than 40 mg/dL Desirable: Low Risk: Greater than 60 mg/dL 8 LDL Interpretation: Low Risk Optimal Level: LDL Less than 100 mg/dL Near or Above Optimal: LDL 100-129 mg/dL Borderline High Risk: LDL 130-159 mg/dL High Risk: LDL 160-189 mg/dL Very High Risk: LDL Greater than 189 mg/dL 9 Recommended INR for Patients on Oral Anticoagulants Prophylaxis 2.0 - 3.0 Treatment of thrombosis 2.0 - 3.0 Prevention of embolism 2.0 - 3.0 Prevention of embolism from prosthetic heart valves 2.5 - 3.5 10 DIAGNOSIS,TREATMENT,AND THERAPY MUST BE BASED ON THE INR VALUE ALONE. 11 Anion gap measurement may be of limited value in the presence of any alkalosis, especially in a combined acid base disorder. . 12 A metabolite of Naproxen, O-desmethylnaproxen, has been shown to interfere with the Jendrassik-Gardner method for measuring total bilirubin. Samples from patients who have taken Naproxen have shown spurious elevation in total bilirubin levels. 13 Because ethnic data is not always readily available, this report includes an eGFR for both -Americans and non- Americans. The National Kidney Disease Education Program (NKDEP) does not endorse the use of the MDRD equation for patients that are not between the ages of 18 and 70, are , have extremes of body size, muscle mass, or nutritional status, or are non- or non-. According to the National Kidney Foundation, irrespective of diagnosis, the stage of the disease is based on the level of kidney function: Stage Description GFR(mL/min/1.73 m(2)) 1 Kidney damage with normal or decreased GFR 90 2 Kidney damage with mild decrease in GFR 60-89 3 Moderate decrease in GFR 30-59 4 Severe decrease in GFR 15-29 5 Kidney failure <15 (or dialysis) 14 Lymphopenia % Basophilia % 15 Neutrophilia % Lymphopenia % 16 Recommended INR for Patients on Oral Anticoagulants Prophylaxis 2.0 - 3.0 Treatment of thrombosis 2.0 - 3.0 Prevention of embolism 2.0 - 3.0 Prevention of embolism from prosthetic heart valves 2.5 - 3.5 17 DIAGNOSIS,TREATMENT,AND THERAPY MUST BE BASED ON THE INR VALUE ALONE. 18 NON FASTING 19 Anion gap measurement may be of limited value in the presence of any alkalosis, especially in a combined acid base disorder. . 20 A metabolite of Naproxen, O-desmethylnaproxen, has been shown to interfere with the Jendrassik-Toni method for measuring total bilirubin. Samples from patients who have taken Naproxen have shown spurious elevation in total bilirubin levels. 21 Because ethnic data is not always readily available, this report includes an eGFR for both -Americans and non- Americans. The National Kidney Disease Education Program (NKDEP) does not endorse the use of the MDRD equation for patients that are not between the ages of 18 and 70, are , have extremes of body size, muscle mass, or nutritional status, or are non- or non-. According to the National Kidney Foundation, irrespective of diagnosis, the stage of the disease is based on the level of kidney function: Stage Description GFR(mL/min/1.73 m(2)) 1 Kidney damage with normal or decreased GFR 90 2 Kidney damage with mild decrease in GFR 60-89 3 Moderate decrease in GFR 30-59 4 Severe decrease in GFR 15-29 5 Kidney failure <15 (or dialysis) 22 100^75-100,000 ORGANISMS/ML (MANY)^CCU 23 CHOLESTEROL INTERPRETATION: Desirable: Less than 200 MG/DL Borderline-High Risk: 200-239 MG/DL High-Risk: 240 MG/DL and over 24 HDL INTERPRETATION: Undesirable: High Risk: Less than 40 MG/DL Desirable: Low Risk: Greater than 60 MG/DL 25 LDL INTERPRETATION: Low Risk Optimal Level: LDL Less than 100 MG/DL Near or Above Optimal: LDL 100-129 MG/DL Borderline High Risk: LDL 130-159 MG/DL High Risk: LDL 160-189 MG/DL Very High Risk: LDL Greater than 189 MG/DL Procedures Date Code Description Status 12/02/2016 56425 Spirometry-Bronchospasm Evaluation, Before & After Completed Bronchodilator 08/26/2013 43836 Removal-Impacted Cerumen Completed 01/02/2012 41435 Removal-Impacted Cerumen Completed 03/28/2011 60996 Removal-Impacted Cerumen Completed 08/11/2008 13329903 Mammogram Completed 08/11/2007 26351358 Colonoscopy Completed Encounters Type Date Location Provider Dx Diagnosis Office Visit 02/24/2018 Main Office Donald Myers44.9 Chronic obstructive 2:15p MD pulmonary disease, unspecified Office Visit 01/22/2018 Main Office Sohan Gusman.9 Chronic obstructive 4:30p MAT REPAIRER pulmonary disease, unspecified Office Visit 11/06/2017 Main Office Rupert Gil, 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 I10 Essential (primary) hypertension Office Visit 01/23/2017 2:15p Main Office Rupert Gil R19.7 Diarrhea, unspecified J44.9 Chronic obstructive pulmonary disease, unspecified Office Visit 01/13/2017 3:45p Main Office Grace Valero R19.7 Diarrhea, Storm, PIG FURNACE OPERATOR-C unspecified Office Visit 12/16/2016 11:15a Main Office Rupert Bennett44.9 Chronic obstructive MD Jeffery pulmonary disease, unspecified Office Visit 12/02/2016 3:00p Main Office Rupert R05 Cough MD Jeffery J44.9 Chronic obstructive pulmonary disease, unspecified Office Visit 04/29/2016 10:45a Main Office Rupert Gil, K59.00 Constipation, unspecified Z12.11 Encounter for screening for malignant neoplasm of colon Office Visit 11/27/2015 11:00a Main Office Garima Whittington, H61.23 Impacted cerumen, PIG FURNACE OPERATOR-C bilateral Office Visit 08/26/2013 9:30a Main Office Karon Anne, V70.0 Examination M.D., R.D. General Medical Routine AT Health Care Facility 238.2 Neoplasm Uncertain Behavior Skin 380.4 Impacted Cerumen Office Visit 05/07/2013 3:00p Main Office Garima Whittington, 785.6 Lymph Nodes PIG FURNACE OPERATOR-C Enlargement Office Visit 01/11/2013 4:45p Main Office Grace Valero 380.22 Otitis Externa Storm, PIG FURNACE OPERATOR-C Other Acute Office Visit 01/02/2012 2:30p Main Office Karon Anne, 401.1 Hypertension Benign M.D., R.D. 783.21 Loss Of Weight 305.1 Tobacco Use Disorder 009.1 Colitis Enteritis & Gastroenteritis Presumed Infectious Orig 380.4 Impacted Cerumen 562.11 Diverticulitis Colon W/O Hemorrhage Office Visit 03/28/2011 1:30p Main Office Karon Anne, V70.0 Examination General M.D., R.D. Medical Routine AT Health Care Facility 401.1 Hypertension Benign 783.21 Loss Of Weight 305.1 Tobacco Use Disorder 380.4 Impacted Cerumen V76.51 Special Screening For Malignant Neoplasms Colon Office Visit 09/27/2010 10:45a Main Office Karon Anne, 401.1 Hypertension Benign M.DGenaro, R.D. 783.21 Loss Of Weight Plan of Treatment 11/04/2018 - Rupert Gil MDI10 Essential (primary) hypertensionNew Medication:Hydrochlorothiazide 25 mg - 1 by mouth every dayComments:She has developed true hypertension in addition to her whitecoat hypertension.In the past she was onhydrochlorothiazide without side effects. We will start her at 25 mg daily. That may be need to beadjusted based on her lab results today, she is having some leg cramps at night that could be consistent with potassium deficiency.R44.1 Visual hallucinationsNew Xrays:CT Brain W/O Contrast, Ordered: 11/04/18Comments:Checking some labs and starting the process for a CT today.Symptoms would be fairly consistent with a frontotemporal dementia.Follow up:Make sure we have release on file to talk to her daughter. CT ordered, start PA process.
[2018-11-07] MEDS ORDERED: NS 0.9% 1000 ML** 1,000 ML IV.FLUID IV ONE (09:43)
[2018-11-07] MEDS ORDERED: cefTRIAXone(*) 1 GM in NS 0.9% 50 ML* 50 ML IVPB ONE (09:43)
[2018-11-07] MEDS ORDERED: Acetaminophen TAB* 325 MG PO ONE (09:44)
--- NOTE | 2018-11-07 09:45 | ED ---
GI/ HPI - HPI Summary HPI Summary: Patient is an 83-year-old female who presents emergency department for fever, dysuria and hematuria that started last night. Past medical history of hypertension and patient notes she started HCTZ a few days ago. Patient states she does not take blood pressure medication today. She denies associated symptoms of chest pain, shortness of breath, vomiting, diarrhea, abd. pain, flank pain. Patient resides at home by herself. Her granddaughter is present with her. Symptoms are moderate in early. No current modifying factors. - History of Current Complaint Chief Complaint: EDUrogenitalProblems Time Seen by Provider: 11/07/18 09:43 Stated Complaint: PASSING BLOOD PER PT Hx Obtained From: Patient Pain Intensity: 0 - Allergy/Home Medications Allergies/Adverse Reactions: Allergies Allergy/AdvReac Type Severity Reaction Status Date / Time Sulfa (Sulfonamide Allergy See Comment Verified 11/07/18 09:25 Antibiotics) Home Medications: Home Medications Aspirin 81 mg PO DAILY 11/07/18 [History Confirmed 11/07/18] hydroCHLOROthiazide [Hydrochlorothiazide] 25 mg PO DAILY 11/07/18 [History Confirmed 11/07/18] PMH/Surg Hx/FS Hx/Imm Hx Previously Healthy: Yes Endocrine/Hematology History: Denies: Hx Diabetes Cardiovascular History: Denies: Hx Hypertension, Hx Pacemaker/ICD Sensory History: Denies: Hx Hearing Aid Psychiatric History: Denies: Hx Panic Disorder - Surgical History Surgery Procedure, Year, and Place: RIGHT HIP. CATARACTS. RT LEG SURGERY WITH JOSE ROBERTO AND 7 SCREWS Infectious Disease History: No Infectious Disease History: Denies: Traveled Outside the [place] in Last 30 Days - Family History Known Family History: Negative: Cardiac Disease, Diabetes - Social History Occupation: Retired Lives: Alone Alcohol Use: None Substance Use Type: Reports: None Smoking Status (MU): Former Smoker Review of Systems Positive: Fever, Chills Eyes: Negative ENT: Negative Cardiovascular: Negative Negative: Chest Pain Respiratory: Negative Negative: Shortness Of Breath, Cough Gastrointestinal: Negative Negative: Abdominal Pain, Vomiting, Diarrhea, Nausea Positive: burning, frequency, hematuria. Negative: flank pain Musculoskeletal: Negative Skin: Negative Neurological: Negative All Other Systems Reviewed And Are Negative: Yes Physical Exam Triage Information Reviewed: Yes Vital Signs On Initial Exam: Initial Vitals Temp Pulse Resp BP Pulse Ox 100 F 128 20 175/98 94 11/07/18 09:19 11/07/18 09:19 11/07/18 09:19 11/07/18 09:19 11/07/18 09:19 Vital Signs Reviewed: Yes Appearance: Positive: Well-Appearing - Pt. sitting up in bed in NAD. Pleasant. Talkative. Granddaughter present. Skin: Positive: Warm, Dry Head/Face: Positive: Normal Head/Face Inspection Eyes: Positive: Normal, EOMI, MARY Neck: Positive: Supple Respiratory/Lung Sounds: Positive: Clear to Auscultation, Breath Sounds Present Cardiovascular: Positive: Normal, RRR Abdomen Description: Positive: Other: - Abd. is soft with mild tenderness over bladder. No CVA tenderness bilaterally. Musculoskeletal: Positive: Normal, Strength/ROM Intact Neurological: Positive: Normal, Alert, Oriented to Person Place, Time, CN Intact II-III Psychiatric: Positive: Affect/Mood Appropriate - Burak Coma Scale Best Eye Response: 4 - Spontaneous Best Motor Response: 6 - Obeys Commands Best Verbal Response: 5 - Oriented Coma Scale Total: 15 Diagnostics - Vital Signs Vital Signs Temp Pulse Resp BP Pulse Ox 11/07/18 09:19 100 F 128 20 175/98 94 - Laboratory Result Diagrams: 11/07/18 09:54 11/07/18 09:53 Lab Statement: Any lab studies that have been ordered have been reviewed, and results considered in the medical decision making process. GIGU Course/Dx - Course Course Of Treatment: Patient presenting to the ER with fever, tachycardia and urinary symptoms. Suspect she will meet sepsis criteria. She was started on IV Rocephin for suspected source of urine and 30 cc/kg normal saline. Labs and cultures obtained. CBC shows a mild leukocytosis. Lactic acid 3.0. Urinalysis is nitrate positive. Hospitalist was consulted for admission given patient meeting sepsis criteria the source of UTI. I spoke with hospitalist, Dr. Dawkins, and patient has been accepted to service. - Diagnoses Differential Diagnoses - Female: Sepsis, Urinary Tract Infection Provider Diagnoses: Sepsis, UTI (urinary tract infection) Discharge - Sign-Out/Discharge Documenting (check all that apply): Patient Departure Patient Received Moderate/Deep Sedation with Procedure: No - Discharge Plan Condition: Stable Disposition: ADMITTED TO [facility] Billing Disposition and Condition Condition: STABLE Disposition: Admitted to [facility]
[2018-11-07 10:02] LABS: ABS Basophils 0 10^3/ul (0-0.2); ABS Eosinophils 0 10^3/ul (0-0.6); ABS Lymphocytes 0.9 10^3/ul (1.0-4.8); ABS Monocytes 0.8 10^3/ul (0-0.8); ABS Neutrophils 12.2 10^3/ul (1.5-7.7); ABS Nucleated RBC 0 10^3/ul; Eosinophil % 0.2 %; Hematocrit 45 % (33-41); Hemoglobin 14.9 g/dL (12.0-16.0); Lymphocyte % 6.2 %; Mean Corpuscular HGB Conc 33 g/dL (31-36); Mean Corpuscular Hemoglobin 29 pg (27-31); Mean Corpuscular Volume 86 fL (80-97); Mean Platelet Volume 8.4 fL (7.4-10.4); Nucleated Red Blood Cells % 0; Platelet Count 256 10^3/uL (150-450); Red Blood Count 5.21 10^6 /uL (3.70-4.87); Red Cell Distribution Width 14 % (10.5-15); White Blood Count 13.9 10^3/uL (3.5-10.8)
[2018-11-07] MEDS ORDERED: Hydrochlorothiazide TAB* 25 MG PO ONE (10:03)
[2018-11-07 10:12] LABS: Activated Partial Thrombo Time 27.3 seconds (26.0-36.3); INR 0.94 (0.77-1.02)
[2018-11-07 10:18] LABS: Albumin 4.6 g/dL (3.2-5.2); Albumin/Globulin Ratio 1.4 (1-3); BUN/Creatinine Ratio 18.4 (8-20); C Reactive Protein 10.62 mg/L (<8.01); Calcium 9.6 mg/dL (8.6-10.3); EGFR African American 75.6 (>60); EGFR Non-African American 62.5 (>60); Globulin 3.3 g/dL (2-4); Potassium 3.5 mmol/L (3.5-5.0); Total Bilirubin 0.6 mg/dL (0.2-1.0); Total Protein 7.9 g/dL (6.4-8.9)
[2018-11-07 10:56] LABS: Urine Appearance Turbid; Urine Bacteria Absent (Absent); Urine Bilirubin Negative (Negative); Urine Blood 3+ (Negative); Urine Color Amber; Urine Glucose Negative (Negative); Urine Ketones Negative (Negative); Urine Nitrite Positive (Negative); Urine Protein 2+(100 mg/dL) (Negative); Urine Red Blood Cell 3+(>10/hpf) (Absent); Urine Specific Gravity 1.017 (1.010-1.030); Urine Urobilinogen Negative (Negative); Urine White Blood Cell 3+(>20/hpf) (Absent)
[2018-11-07] MEDS ORDERED: Acetaminophen TAB* 325 MG PO PRN (11:38)
--- NOTE | 2018-11-07 13:39 | HP ---
CC: Dr. Gil * HISTORY AND PHYSICAL: DATE OF ADMISSION: 11/07/18 PROVIDER: Luana Miller NP. ATTENDING PHYSICIAN WHILE IN THE HOSPITAL: Dr. Mich Dawkins * (dictated by Luana Miller NP). PRIMARY CARE PROVIDER: Dr. Gil. CHIEF COMPLAINT: Pain with urination. HISTORY OF PRESENT ILLNESS: The patient reports that she awoke last night and had blood in her urine. She states that she did not have any symptoms during the day. She denied any fever or chills. Denied chest pain or edema. Denies any cough, hemoptysis, or shortness of breath. Denied any nausea, vomiting, diarrhea, or abdominal pain. The patient reports that during the night she went to the bathroom and noticed that she had blood in her urine. She went back to bed and this morning, she continued to have blood in her urine with pain , frequency, and urgency with urination. She also reports that she was only urinating small amounts and that the burning and stinging sensation after urination would remain. Due to these symptoms, she presented to the emergency room for further evaluation. While in the emergency room, the patient was found to have a low-grade fever of 100.0. She did have an elevated white count of 13.9 and was tachycardic on arrival with a heart rate of 120. She had routine blood work drawn, which again showed elevated white count of 13.9 and a lactic acid of 3.0 with a CRP of 10.62. She did have a urinalysis sent, which was positive for protein, 3+ for blood, positive for nitrites, leukocyte esterase 2+, wbc's were 3+, rbc's were 3+. Given her meeting sepsis criteria, we were asked to see and evaluate her for admission. PAST MEDICAL HISTORY: Significant for: 1. Hypertension. 2. COPD. 3. History of diverticulitis. PAST SURGICAL HISTORY: 1. Tonsillectomy. 2. Appendectomy. 3. Back surgery. 4. Right hip replacement. HOME MEDICATIONS: 1. ProAir as needed. 2. Incruse inhaler. 3. Multivitamin 1 tab p.o. daily. 4. Aspirin 81 mg p.o. daily. 5. Hydrochlorothiazide 25 mg p.o. daily. 6. Acidophilus 1 tablet p.o. daily. ALLERGIES: Allergy to SULFA. FAMILY HISTORY: She denies any report of coronary artery disease or diabetes. She does report father with a history of lung cancer, brother with prostate cancer. SOCIAL HISTORY: She reports she quit smoking approximately 9 years ago. Prior to that, she smoked 30 plus years of 1 pack per day. She does report occasional alcohol use. She denies any illicit drug use. She lives alone. Surrogate decision maker is her daughter, Mariama. She is a full code. REVIEW OF SYSTEMS: She denies any fever, chills, or unintended weight loss. Denies any chest pain or edema. Denies any cough, hemoptysis, or shortness of breath. No nausea, vomiting, diarrhea, or abdominal pain. She does report hematuria and dysuria, frequency, urgency and burning pain with urination. She denies any focal weakness or sensory loss, visual complaints, dysphagia, arthralgias, myalgias, rashes, lesions or open sores. She denies any psychosis or anxiety. PHYSICAL EXAMINATION GENERAL: At this time, Ms. Lindo is an elderly female. She is sitting on the edge of the bed in the emergency room. She is in no acute distress. She is alert and oriented x3. VITAL SIGNS: Blood pressure 152/91, heart rate is 104, respirations are 20, O2 saturation 95% on room air, temperature was 100.0. HEENT: Head is atraumatic, normocephalic. Eyes: EOMs are intact. Sclerae anicteric and not pale. Oral mucosa appeared to be moist. NECK: Supple. LUNGS: Clear to auscultation bilaterally. No wheezes, rales, or rhonchi. CARDIAC: S1, S2. Regular rate and rhythm. No murmurs, rubs, or gallops. ABDOMEN: Soft and nontender. Bowel sounds are present x4. She has no CVA tenderness. EXTREMITIES: She is able to move all 4 extremities. There is no clubbing or cyanosis. NEUROLOGIC: She is awake, alert, oriented x3. Speech is clear. Thought process is intact. There are no gross focal deficits. SKIN: Intact. DIAGNOSTIC STUDIES/LAB DATA: WBCs were 13.9, RBCs 5.21, hemoglobin 14.9, hematocrit was 45, platelet count was 256. INR was 0.94, APTT was 27.3. Sodium 134, potassium 3.5, chloride 99, carbon dioxide 24, anion gap 11, BUN was 16, creatinine 0.87, glucose was 190, lactic acid was 3.0, calcium was 9.6. ASTs were 19, ALTs were 13, alkaline phosphatase was 84. C-reactive protein 10.62. Urine was gabbi, turbid, pH was 6.0, specific gravity 1.017, protein was 2+, ketones were negative, urine blood was 3+, nitrites were positive, urine bilirubin was negative, urobilinogen was negative, urine leukocyte esterase was 2+, wbc's were 3+, rbc's were 3+, urine bacteria was absent, urine glucose was negative. ASSESSMENT AND PLAN: Ms. Lindo is an 83-year-old female with past medical history significant for hypertension, chronic obstructive pulmonary disease and history of diverticulitis, who presented to the emergency room with complaints of painful urination, frequency, urgency, and hematuria, who met sepsis criteria in the emergency room. She will be admitted under observation status for: 1. Sepsis. I suspect this is related to underlying urinary tract infection as the patient did have low-grade fever of 100.0. She did have white count of 13.9 with a lactic acid of 3.0 and heart rate was 120 on arrival to the emergency room. She did receive 3 L of normal saline in the emergency room and we will have a repeat lactic acid drawn at 1:30 today. She had blood cultures that are currently pending, urine culture that is currently pending. She did receive 1 g of ceftriaxone in the emergency room. We will continue with ceftriaxone 1 g daily until culture and sensitivity is available. I will continue on normal saline at 75 cc per hour and repeat a CBC and BMP in the a.m. 2. Urinary tract infection. I will continue on ceftriaxone 1 g IV daily. Repeat CBC and BMP in the a.m. 3. Hypertension. I am going to hold her hydrochlorothiazide at this time. I will give her p.r.n. hydralazine as needed for systolic blood pressure greater than 180. 4. Chronic obstructive pulmonary disease. We will continue on Incruse inhaler as previously prescribed. 5. FEN: She can have a low-sodium diet. 6. Code status: She is a full code. 7. DVT prophylaxis: I will place her on SCDs. TIME SPENT: Time spent on this admission was approximately 60 minutes, greater than half that time was spent at the bedside reviewing events leading thus far to her hospitalization, performing my physical exam, and implementing my plan of care. I have discussed this with my attending, Dr. Mich Dawkins; he is in agreement with my plan. LUANA MILLER, REAL TIME OPERATOR [id number]/CPS #: [id number] MAR
[2018-11-07] MEDS: NS 0.9% 1000 ML** 1,000 ML IV SCH (13:52)
[2018-11-07] MEDS ORDERED: Albuterol HFA INHALER* 8 gm MDI INH PRN (22:57)
[2018-11-08] MEDS: NS 0.9% 1000 ML** 1,000 ML IV SCH (01:52)
[2018-11-08 08:40] LABS: ABS Basophils 0.1 10^3/ul (0-0.2); ABS Eosinophils 0.1 10^3/ul (0-0.6); ABS Monocytes 0.8 10^3/ul (0-0.8); ABS Neutrophils 5.6 10^3/ul (1.5-7.7); ABS Nucleated RBC 0 10^3/ul; Eosinophil % 1.5 %; Hematocrit 43 % (33-41); Hemoglobin 14.5 g/dL (12.0-16.0); Lymphocyte % 23.1 %; Mean Corpuscular HGB Conc 34 g/dL (31-36); Mean Corpuscular Hemoglobin 29 pg (27-31); Mean Corpuscular Volume 87 fL (80-97); Mean Platelet Volume 8.5 fL (7.4-10.4); Nucleated Red Blood Cells % 0; Platelet Count 258 10^3/uL (150-450); Red Blood Count 5.01 10^6 /uL (3.70-4.87); Red Cell Distribution Width 14 % (10.5-15); White Blood Count 8.7 10^3/uL (3.5-10.8)
[2018-11-08 08:55] LABS: BUN/Creatinine Ratio 15.7 (8-20); Calcium 9.3 mg/dL (8.6-10.3); EGFR African American 97.2 (>60); EGFR Non-African American 80.3 (>60); Potassium 3.8 mmol/L (3.5-5.0)
[2018-11-08 08:58] VITALS: BP 154/69
[2018-11-08] MEDS ORDERED: Multivitamins/Minerals TAB PO SCH (09:00)
[2018-11-08] MEDS ORDERED: cefTRIAXone(*) 1 GM in NS 0.9% 50 ML* 50 ML IVPB SCH (11:00)
--- NOTE | 2018-11-08 13:14 | DS ---
CC: Dr. Gil * DISCHARGE SUMMARY: DATE OF ADMISSION: 11/07/18 DATE OF DISCHARGE: 11/08/18 PRIMARY CARE PROVIDER: Dr. Gil. ATTENDING PHYSICIAN: Dr. Peoples * (dictated by ROLAND Perkins) PRIMARY DIAGNOSES: 1. Urinary tract infection. 2. Sepsis. SECONDARY DIAGNOSES: 1. Hypertension. 2. Chronic obstructive pulmonary disease. 3. History of diverticulitis. STUDIES WHILE IN THE HOSPITAL: Urinalysis revealed positive nitrites, 2+ leukocyte esterase, 3+ blood. Urine culture pending. DISCHARGE MEDICATIONS: Home medications: 1. Aspirin 81 mg p.o. daily. 2. Multivitamin/minerals 1 tab p.o. daily. 3. Probiotic 1 p.o. daily. 4. Changed home medication: Hydrochlorothiazide 12.5 mg p.o. daily. 5. New home medication: Cefdinir 300 mg p.o. b.i.d. starting tomorrow x8 days. HISTORY OF PRESENT ILLNESS/HOSPITAL COURSE: Ms. Lindo is an 83-year-old female with a past medical history as described above, who presented to the ER on 11/07 with complaints of hematuria. She states that she had blood in the urine the night prior and in the morning. She also had associated frequency, urgency , retention, and burning sensation with urination. She presented to the emergency room for further evaluation and was noted to have a low-grade fever, leukocytosis, tachycardia and a lactic acidosis of 3.0. She was also noted to have a CRP of 10.62. Urinalysis revealed source of infection as urinary. Her urine was sent for culture. Having met sepsis criteria, the patient was evaluated and admitted by the hospitalist team. Sepsis and lactic acidosis was treated with 3 L of normal saline. Repeat lactic acid showed resolution with a level of 1.2. Her urinary tract infection was treated with Ceftriaxone and her urine was sent for culture, which is still pending at the time of discharge. Throughout her hospital stay, it is noted that she had hypertension. Her hydrochlorothiazide was held throughout the hospitalization. It was halved and restarted on the day of discharge. The following day, the patient states that she is feeling better. On the day of discharge, the patient denies hematuria, urgency, frequency, or retention. She denies pain in the suprapubic region. She denies shortness of breath, chest pain, pain in the calves. She denies pain in the flanks. The patient is eager to be discharged to home. Her daughter is concerned that the patient will fall while she is trying make it to the bathroom, while the patient states that she no longer has urgency and does not fowler to the bathroom. She is safe to go home. It is also noted that she has a steady gait and ambulates well. My recommendation for this is a trial of Depend's for the time being until the patient feels that she no longer needs them. PHYSICAL EXAMINATION: General: Ms. Lindo is a well-developed, well-nourished elderly white woman, who is in no acute distress. She appears her stated age. She appears well and comfortable. Vital signs are temperature 98.4 orally, heart rate 74, respiratory rate 14, oxygen saturation 95% on room air, blood pressure 154/69. HEENT: Visual malagon are grossly intact. Her pupils are equally round and reactive to light. Extraocular movements are intact. Sclerae are without icterus. The oral mucous membranes are moist. Pharynx is clear. Cardiovascular: Regular rate and rhythm with S1, S2 present. There are no murmurs, rubs, or gallops. There is no JVD. Respiratory: Symmetrical chest expansion with no use of accessory muscles. Lungs are clear to auscultation. There are no rhonchi, wheezes, or rubs. Abdomen: Bowel sounds in all quadrants. The abdomen is soft. There is no tenderness to palpation throughout the abdomen including the suprapubic area. There is no hepatosplenomegaly. Extremities: Skin is warm and smooth bilaterally. There is trace edema at bilateral lower extremities. There is no clubbing or cyanosis. Radial and pedal pulses are palpable. Neuro: The patient is awake. She is alert and oriented. She is able to move all of her extremities. She has steady gait with no impairments. DISCHARGE PLAN: Ms. Lindo is stable for discharge. She will be discharged to home. ACTIVITY: As tolerated. DIET: Heart healthy, low salt. MEDICATIONS: As above. EDUCATION: 1. Follow up with primary care physician in 4 to 7 days. Discussed recent hospitalization due to UTI and sepsis, HCTZ dose, blood pressure/log, urine culture, which is pending. 2. Continue to monitor blood pressure 1 to 2 times daily as described and record pressures. 3. Continue hydrochlorothiazide 12.5 mg daily. 4. Consider Depend's for a short term if there is concern for urgency and making it to the bathroom in time. 5. Return to the ER or nearest hospital if you experience any worsening of symptoms, shortness of breath, lightheadedness, dizziness, chest discomfort, high fevers, chills, night sweats, loss of consciousness, or any other worrisome signs or symptoms. This is a summarized report of a complex medical history and hospital stay. For further details, please see the entire medical record. TIME SPENT: Approximately 35 minutes was spent on this discharge, greater than half of that time was spent [id number] with the patient discussing discharge plans and instructions. ROLAND MEDINA [id number]/[facility] #: [id number] MAR
== END 2018-11-08 13:30 | disposition home or self-care (01) ==
LOC: ED 09:17 → MED 11:38
PROVIDERS: ADMIT Student in an Organized Health Care Education/Training Program; ATTEND Student in an Organized Health Care Education/Training Program
DX: N39.0 Urinary tract infection, site not specified (principal); A41.9 Sepsis, unspecified organism; I10 Essential (primary) hypertension; J44.9 Chronic obstructive pulmonary disease, unspecified; K57.92 Diverticulitis of intestine, part unspecified, without perforation or abscess without bleeding; Z79.82 Long term (current) use of aspirin; Z88.2 Allergy status to sulfonamides; Z87.891 Personal history of nicotine dependence; Z96.641 Presence of right artificial hip joint
CPT/HCPCS: 36415; 80048; 80053; 81003; 81015; 83605; 85025; 85610; 85730; 86140; 87040; 87077; 87086; 87186; 96361; 96365; 99283; A9270-GY; G0378; J0696

== ENCOUNTER 2019-01-27 12:17 | Emergency (ER) | payer MEDICARE ==
--- OUTSIDE RECORDS SUMMARY | 2019-01-27 12:56 | XMS REPORT | Continuity of Care Document ---
:1935 External Reference #:[id number] Author Name Rupert Gil MD Address [address] [place] [address] Care Team Providers Name Role Phone Rupert Gil MD Care Team Information Long Term Care Social Worker Unavailable Payers Date Identification Numbers Payment Provider Subscriber Expires: 2015 Policy Number: [id number] [facility] Maria M Lindo Group Number: [id number] [address] PayID: [id number] [place] [address] Effective: 2015 Policy Number: [id number] [facility] Maria M Lindo PayID: [id number] [address] [place] [address] Problems Active Problems Provider Date Benign essential hypertension Karon Anne M.D., R.D. Onset: 09/16/2013 Family History Date Family Member(s) Observation Comments [...] for her legs. Allergies, Adverse Reactions, Alerts Active Allergies Reaction Severity Comments Date Sulfa 09/27/2010 Medications Active Medications SIG Qnty Indications Ordering Date Provider Lisinopril 1 by mouth every 90Tablet Rupert 10mg Tablets day MD Jeffery 9 Aerochamber Plus use as directed 1units J44.9 [facility] Misc with inhalers MARGARET Sanchez 8 Proair HFA Inhale 1-2 Puffs 8.5units [facility] 108(90Base) mcg/Act Every 6 Hours as Dayana, 7 Aerosol Needed. MMoni., R.D. Acidophilus Probiotic [facility] Tablets Dayana, 4 Charles, R.D. Acetaminophen prn pain [facility] Dayana, 2 Charles, R.D. Multivitamin & Mineral [facility] Liquid Dayana, 1 Charles, R.D. Incruse Ellipta Inhale One puff Unknown 62.5mcg/Inh By Mouth Every 0 Aerosol Day For Chronic Obstructive Lung Disease Hydrochlorothiazide take one capsule Unknown 12.5mg by mouth every 0 Capsules morning History Medications Hydrochlorothiazide 1 by mouth every 30tabs I10 Rupert 11/04/2018 - 25mg day MD Jeffery 11/16/2018 Tablets Incruse Ellipta inhale one puff 60units [facility] 01/23/2018 - 62.5mcg/Inh by mouth every MD Jeffery 02/24/2018 Aerosol day for chronic obstructive lung disease Spiriva Respimat Inhale 2 puffs 8gm J44.9 [facility] 01/22/2018 - 2.5mcg/Act by mouth daily MARGARET Sanchez 11/04/2018 Aerosol for chronic obstructive lung disease Spacer, Pediatric to use with 1units J44.9 [facility] 01/22/2018 - inhalers MARGARET Sanchez 01/22/2018 Cipro 1 pill by mouth 20tabs R19.7 Shawnti R. 01/13/2017 - 500mg Tablets twice a day for Bandar, [employer] 01/23/2017 10 days Striverdi Respimat Inhale 2 puffs 4gm J44.9 Rupert 12/16/2016 - 2.5mcg/Act by mouth daily MD Jeffery 01/23/2017 Aerosol for chronic obstructive lung disease Zyrtec Allergy 1 by mouth every 30tabs R05 Rupert 12/02/2016 - 10mg Tablets day MD Jeffery 11/04/2018 Colace 2 tab by mouth 30caps K59.00 Rupert 04/29/2016 - 100mg Capsules daily for a week MD Jeffery 11/04/2018 Amoxicillin 1 tablet bid x 20tabs 785.6 Garima Whittington, 05/07/2013 - 875mg Tablets 10 days [facility] 08/26/2013 Neomycin/Polymyxin/HC 3 drops in right 1bottle 380.22 [facility] - ear qid for 5 Bandar [facility] 08/26/2013 3.5-75122-6 Solution days or until resolved Ciprofloxacin 1 po bid 14units Karon Anne, 03/30/2011 - 250mg Charles, R.D. 01/02/2012 Hydrocortisone/Acetic As directed QS Karon Anne, 03/28/2011 - Acid Otic Solution Charles, R.D. 01/02/2012 Solution Calcium + D 1 po qd Karon Anne, 09/27/2010 - [phone]-Eydl Charles, R.D. 11/06/2017 Tablets Aspir-81 1 po qd 30tabs Karon Anne, 09/27/2010 - 81mg Tablets DR Soto, R.D. 11/04/2018 Vitamin B-12 1 po qd Karon Anen, 09/27/2010 - 1000mcg Tablets Charles, R.D. 04/29/2016 Sub Vitamin C Karon Anne, 09/27/2010 - 250mg Chewtabs Charles, R.D. 04/29/2016 Hydrochlorothiazide 1/2 po qd 45tabs Karon Anne, 09/27/2010 - 25mg Charles, R.D. 03/28/2011 Tablets Stiolto Respimat J44.9 Unknown - 01/23/2017 2.5-2.5mcg/Act Aerosol Cefdinir Take One Capsule Unknown - 300mg Capsules By Mouth Twice A 01/06/2019 Day Immunizations CPT Code Status Date Vaccine Lot # [id number] Given 05/11/2003 Pneumovax 23 (PPSV23) 65+ years or high risk 2 to 64 year old [address] Refused 01/13/2017 Influenza Virus Vaccine, Quadrivalent, 3 Yr > Quad , Preserv Free Vital Signs Date Vital Result Comment 01/06/2019 3:40pm Weight 132.00 lb Weight 59.875 kg BP Systolic 132 mmHg BP Diastolic 70 mmHg Heart Rate 84 /min Body Temperature 99.0 F Respiratory Rate 18 /min 12/02/2018 11:06am Weight 133.00 lb Weight 60.329 kg BP Systolic 134 mmHg BP Diastolic 74 mmHg Heart Rate 82 /min Body Temperature 97.9 F Respiratory Rate 16 /min 11/16/2018 10:26am Weight 132.00 lb Weight 59.875 kg BP Systolic 130 mmHg BP Diastolic 78 mmHg Heart Rate 96 /min Body Temperature 98.2 F Respiratory Rate 16 /min 11/04/2018 9:19am Weight 132.00 lb Weight 59.875 [...] Date Facility Test Result H/L Range Note Urine Culture And 11/25/2018 [facility] Urine Culture SEE RESULT 1, 2 Sensitivities [phone] BELOW Urine DIP 11/25/2018 In House Lab Leukocytes neg Neg (607)- - Urine Nitrites neg Neg Urobilinogen norm Norm Total Protein Urine neg Neg Urine pH 5 5-6 Urine Blood neg Neg Specific Magna 1.015 1.01-1.02 Urine Ketones neg Neg Urine Bilirubin neg Neg Urine Glucose norm Norm CBC Auto Diff 11/16/2018 [facility] White Blood 6.4 10^3/uL N 3.5-10.8 3 [phone] Count Red Blood Count 5.18 10^6/uL High 3.70-4.87 Hemoglobin 14.8 g/dL N 12.0-16.0 Hematocrit 45 % High 33-41 Mean Corpuscular Volume 87 fL N 80-97 Mean Corpuscular Hemoglobin 29 pg N 27-31 Mean Corpuscular HGB Conc 33 g/dL N 31-36 Red Cell Distribution Width 15 % N 10.5-15 Platelet Count 297 10^3/uL N 150-450 Mean Platelet Volume 8.5 fL N 7.4-10.4 Abs Neutrophils 3.9 10^3/uL N 1.5-7.7 Abs Lymphocytes 1.7 10^3/uL N 1.0-4.8 Abs Monocytes 0.6 10^3/uL N 0-0.8 Abs Eosinophils 0.1 10^3/uL N 0-0.6 Abs Basophils 0.1 10^3/uL N 0-0.2 Abs Nucleated RBC 0 10^3/uL Granulocyte % 61.0 % Lymphocyte % 26.8 % Monocyte % 10.1 % Eosinophil % 1.2 % Basophil % 0.9 % Nucleated Red Blood Cells % 0.1 Comp Metabolic Panel 11/16/2018 [facility] Sodium 138 mmol/L N 135-145 [phone] Potassium 4.3 mmol/L N 3.5-5.0 Chloride 101 mmol/L N 101-111 Co2 Carbon Dioxide 28 mmol/L N 22-32 Anion Gap 9 mmol/L N 2-11 Glucose 83 mg/dL N 70-100 Blood Urea Nitrogen 21 mg/dL N 6-24 Creatinine 0.81 mg/dL N 0.51-0.95 BUN/Creatinine Ratio 25.9 High 8-20 Calcium 9.8 mg/dL N 8.6-10.3 Total Protein 7.7 g/dL N 6.4-8.9 Albumin 4.7 g/dL N 3.2-5.2 Globulin 3.0 g/dL N 2-4 Albumin/Globulin Ratio 1.6 N 1-3 Total Bilirubin 0.40 mg/dL N 0.2-1.0 Alkaline Phosphatase 81 U/L N 34-104 Alt 13 U/L N 7-52 Ast 19 U/L N 13-39 Egfr Non- 67.9 >60 Egfr 82.1 >60 4 Laboratory test 11/16/2018 [facility] C Reactive 2.74 mg/L N <8.01 5 finding [phone] Protein Laboratory test 11/07/2018 [facility] C Reactive 10.62 mg/L High <8.01 finding [phone] Protein Lactic Acid 3.0 mmol/L High 0.5-2.0 6 Blood Culture SEE RESULT BELOW 7 Comp Metabolic 11/07/2018 [facility] Sodium 134 mmol/ L Low 135-145 Panel [phone] Potassium 3.5 mmol/L N 3.5-5.0 Chloride 99 mmol/L Low 101-111 Co2 Carbon Dioxide 24 mmol/L N 22-32 Anion Gap 11 mmol/L N 2-11 Glucose 190 mg/dL High 70-100 Blood Urea Nitrogen 16 mg/dL N 6-24 Creatinine 0.87 mg/dL N 0.51-0.95 BUN/Creatinine Ratio 18.4 N 8-20 Calcium 9.6 mg/dL N 8.6-10.3 Total Protein 7.9 g/dL N 6.4-8.9 Albumin 4.6 g/dL N 3.2-5.2 Globulin 3.3 g/dL N 2-4 Albumin/Globulin Ratio 1.4 N 1-3 Total Bilirubin 0.60 mg/dL N 0.2-1.0 Alkaline Phosphatase 84 U/L N 34-104 Alt 13 U/L N 7-52 Ast 19 U/L N 13-39 Egfr Non- 62.5 >60 Egfr 75.6 >60 8 Laboratory test 11/07/2018 [facility] Partial Thrombo 27.3 N 26.0-36.3 finding [phone] Time PTT seconds Urinalysis 11/07/2018 [facility] Urine Turbid Profile [phone] Appearance Urine Specific Magna 1.017 N 1.010-1.030 Urine pH 6.0 N 5-9 Urine Urobilinogen Negative Negative Urine Ketones Negative Negative Urine Protein 2+(100 mg/dL) Abnormal Negative Urine Leukocytes 2+ Abnormal Negative Urine Blood 3+ Abnormal Negative Urine Nitrite Positive Abnormal Negative Urine Bilirubin Negative Negative Urine Glucose Negative Negative Urine White Blood Cell 3+(>20/hpf) Abnormal Absent Urine Red Blood Cell 3+(>10/hpf) Abnormal Absent Urine Bacteria Absent Absent Urine Color Lisa Urine Culture And 11/07/2018 [facility] Urine SEE RESULT 9 Sensitivities [phone] Culture BELOW CBC Auto Diff 11/07/2018 [facility] White Blood 13.9 High 3.5-3 [phone] Count 10^3/uL 0.8 Red Blood Count 5.21 10^6/uL High 3.70-4.87 Hemoglobin 14.9 g/dL N 12.0-16.0 Hematocrit 45 % High 33-41 Mean Corpuscular Volume 86 fL N 80-97 Mean Corpuscular Hemoglobin 29 pg N 27-31 Mean Corpuscular HGB Conc 33 g/dL N 31-36 Red Cell Distribution Width 14 % N 10.5-15 Platelet Count 256 10^3/uL N 150-450 Mean Platelet Volume 8.4 fL N 7.4-10.4 Abs Neutrophils 12.2 10^3/uL High 1.5-7.7 Abs Lymphocytes 0.9 10^3/uL Low 1.0-4.8 Abs Monocytes 0.8 10^3/uL N 0-0.8 Abs Eosinophils 0 10^3/uL N 0-0.6 Abs Basophils 0 10^3/uL N 0-0.2 Abs Nucleated RBC 0 10^3/uL Granulocyte % 87.5 % Lymphocyte % 6.2 % Monocyte % 5.9 % Eosinophil % 0.2 % Basophil % 0.2 % Nucleated Red Blood Cells % 0 Inr/Protime 11/07/2018 [facility] Inr 0.94 N 0.77- 1.02 [phone] Comp Metabolic Panel 11/04/2018 [facility] Sodium 139 mmol/L N 135-145 [phone] Potassium 4.2 mmol/L N 3.5-5.0 Chloride 104 mmol/L N 101-111 Co2 Carbon Dioxide 25 mmol/L N 22-32 Anion Gap 10 mmol/L N 2-11 Glucose 101 mg/dL High 70-100 Blood Urea Nitrogen 21 mg/dL N 6-24 Creatinine 0.77 mg/dL N 0.51-0.95 BUN/Creatinine Ratio 27.3 High 8-20 Calcium 9.7 mg/dL N 8.6-10.3 Total Protein 7.8 g/dL N 6.4-8.9 Albumin 4.7 g/dL N 3.2-5.2 Globulin 3.1 g/dL N 2-4 Albumin/Globulin Ratio 1.5 N 1-3 Total Bilirubin 0.50 mg/dL N 0.2-1.0 Alkaline Phosphatase 80 U/L N 34-104 Alt 14 U/L N 7-52 Ast 20 U/L N 13-39 Egfr Non- 71.9 >60 Egfr 87.1 >60 10 CBC Auto Diff 11/04/2018 [facility] White Blood 7.4 10^3/uL N 3.5-10.8 [phone] Count Red Blood Count 5.19 10^6/uL High 3.70-4.87 Hemoglobin 15.0 g/dL N 12.0-16.0 Hematocrit 45 % High 33-41 Mean Corpuscular Volume 87 fL N 80-97 Mean Corpuscular Hemoglobin 29 pg N 27-31 Mean Corpuscular HGB Conc 33 g/dL N 31-36 Red Cell Distribution Width 14 % N 10.5-15 Platelet Count 262 10^3/uL N 150-450 Mean Platelet Volume 8.7 fL N 7.4-10.4 Abs Neutrophils 5.3 10^3/uL N 1.5-7.7 Abs Lymphocytes 1.3 10^3/uL N 1.0-4.8 Abs Monocytes 0.6 10^3/uL N 0-0.8 Abs Eosinophils 0.1 10^3/uL N 0-0.6 Abs Basophils 0.1 10^3/uL N 0-0.2 Abs Nucleated RBC 0 10^3/uL Granulocyte % 72.2 % Lymphocyte % 17.5 % Monocyte % 8.5 % Eosinophil % 1.0 % Basophil % 0.8 % Nucleated Red Blood Cells % 0.1 Laboratory test 11/04/2018 [facility] Vitamin B12 587 pg/mL N 180-914 11 finding [phone] Folate > 20.00 ng/mL >3.99 12 Laboratory test 11/06/2017 In House Lab Hemoglobin 11.1 finding (607)- - CBC Auto Diff 10/15/2017 [facility] White Blood Count 8.4 10^3/uL N 3.5-10. 13 [phone] Red Blood Count 4.52 10^6/uL N [...] Red Blood Cells % 0.1 Inr/Protime 10/15/2017 [facility] Inr 0.91 N 0.77- 1.02 [phone] Type & Screen 10/15/2017 [facility] Patient Blood B Positive [phone] Type Antibody Screen NEGATIVE Comp Metabolic Panel 10/15/2017 [facility] Sodium 137 mmol/L N 133-145 [phone] Potassium 4.2 mmol/L N 3.5-5.0 Chloride 102 [...] Egfr Non- 35.6 >60 Egfr 45.8 >60 14 Laboratory test 01/14/2017 [facility] Fecal Lactoferrin SEE RESULT 15 finding [phone] (Stool WBC) BELOW C Difficile PCR SEE RESULT BELOW 16 Stool Panel ([facility]) 01/13/2017 [facility] Stool Culture <pending> [phone] Fecal Lactoferrin (Stool WBC) <pending> O&P Ova & Parasites Screen <pending> C Difficile PCR <pending> Stool Panel 04/29/2016 [facility] Stool For SEE RESULT 17 (CMC) [phone] Blood BELOW CBC Auto Diff 08/26/2013 [facility] White Blood 6.7 10^3/uL 4.8-10. [phone] Count 8 Red Blood Count 5.20 10^6/uL 4.0-5.4 Hemoglobin [...] Cells % 0.1 Comp Metabolic Panel 08/26/2013 [facility] Sodium 137 mmol/L 133-145 [phone] Potassium 3.9 mmol/L 3.5-5.0 Chloride 101 mmol/L [...] Egfr Non- 81.4 >60 Egfr 104.6 >60 18 Lipid Profile 08/26/2013 [facility] Triglycerides 137 mg/dL 40-200 (Trig/Chol/HDL) [phone] Cholesterol 265 mg/dL High Less than 200 HDL Cholesterol 75 mg/dL High 40-60 19 Cholesterol/HDL Ratio 3.5 Average 1-4.44 LDL Cholesterol 162.6 High Less Than 100 20 Urine DIP 08/26/2013 In House Lab Leukocytes NEG Neg (607)- - Urine Nitrites NEG Neg Urine pH 5 5-6 Total Protein, Urine NEG Neg Urine Glucose NORM Norm Urine Ketones NEG Neg Urobilinogen NORM Norm Urine Bilirubin NEG Neg Urine Blood NEG Neg Specific Magna 1.020 1.01-1.02 PT W/Inr 10/23/2011 [facility] Inr 0.94 0.88-1.13 21 [phone] Protime 11.1 SEC 10.3-13.5 22 Laboratory test 10/23/2011 [facility] PTT (Aptt) 23.2 SEC Low 25.1-38.5 finding [phone] Urinalysis 10/23/2011 [facility] Ua Color YELLOW Yellow W/Microscopic [phone] Appearance-Urine CLEAR Clear Specific Magna-Ur 1.005 Low 1.010-1.030 Esterase-Urine NEGATIVE Negative Nitrite NEGATIVE Negative [id number] NEGATIVE Negative Protein-Urine NEGATIVE Negative PH-Urine 6.5 5-9 Blood-Urine TRACE Abnormal Negative Ketones-Urine NEGATIVE Negative Bilirubin-Ur NEGATIVE Negative Glucose-Urine NEGATIVE Negative WBC-Urine 0-2 0-5 RBC-Urine RARE 0-2 Epith Cells-Ur SMALL None Bacteria-Urine 1+ None Manual Differential 10/23/2011 [facility] Polysegmented 79 % 38-83 [phone] Neutrophil Lymphocyte 12 % Low 25-47 Monocyte 9 % 0-13 Absolute Neutrophil Count 7.9 RBC Morphology NORMAL CBC Auto Diff 10/23/2011 [facility] White Blood 10.0 CUMM 4.8-10.8 [phone] Count Red Cell Count 3.81 CUMM Low 4.2-5.4 Hemoglobin 11.5 g/dL Low 12.0-16.0 Hematocrit 33 % Low 35-47 Mean Corpuscular Volume 87 um3 79-97 Mean Corpuscular Hemoglob 30 pg 27-31 Mean Corpuscular HGB Cone 35 g/dL 32-36 Redcell Distribution WDTH 14 % 10.5-15 Platelet Count 274 CUMM 150-450 Mean Platelet Volume 7.8 um3 7.4-10.4 23 Laboratory test 10/23/2011 [facility] Lipase 19 U/L Low 22-51 finding [phone] Comp Metabolic 10/23/2011 [facility] Sodium 136 mmol/ L 135-145 Panel [phone] Potassium 3.5 mmol/L 3.5-5.0 Chloride 101 mmol/L 101-111 Co2 (Carbon Dioxide) 25.0 mmol/L 22-32 Anion Gap 10.0 mmol/L 2-11 24 Glucose 109 mg/dL High 70-100 BUN 16 mg/dL 6-24 Creatinine 0.6 mg/dL 0.50-1.40 One Over Creatinine 1.66 BUN/Creatinine Ratio 26.7 High 8-20 Calcium 8.5 mg/dL 8.1-9.9 Total Protein 6.5 GM/DL 6.2-8.1 Albumin 3.5 GM/DL 3.2-5.2 Globulin 3.0 GM/DL 2-4 Albumin/Globulin Ratio 1.2 1-3 Bilirubin Total 0.7 mg/dL 0.4-1.5 25 Alkaline Phosphatase 78 U/L 30-110 Alt (SGPT) 17 U/L 14-54 Ast (Sgot) 22 U/L 12-42 eGFR Non- 97.7 > 60 eGFR 125.7 > 60 26 Laboratory test 07/18/2011 [facility] PTT (Aptt) 22.3 Low 25.15-38.53 finding [phone] Manual 07/18/2011 [facility] Polysegmented 91 % High 38-83 Differential [phone] Neutrophil Lymphocyte 7 % Low 25-47 Monocyte 2 % 0-13 Absolute Neutrophil Count 12.4 RBC Morphology NORMAL PT W/Inr 07/18/2011 [facility] Inr 0.98 0.88-1.13 27 [phone] Protime 11.5 SEC 10.3-13.5 28 CBC Auto Diff 07/18/2011 [facility] White Blood 13.7 CUMM High 4.8-10.8 [phone] Count Red Cell Count 4.27 CUMM 4.2-5.4 Hemoglobin 13.2 g/dL 12.0-16.0 Hematocrit 38 % 35-47 Mean Corpuscular Volume 90 um3 79-97 Mean Corpuscular Hemoglob 31 pg 27-31 Mean Corpuscular HGB Cone 34 g/dL 32-36 Redcell Distribution WDTH 13 % 10.5-15 Platelet Count 251 CUMM 150-450 Mean Platelet Volume 8.1 um3 7.4-10.4 29 Urine DIP 03/28/2011 In House Lab Leukocytes ++ Neg (607)- - Urine Nitrites NEG Neg Urine pH 5 5-6 Total Protein, Urine TRACE Neg Urine Glucose NORM Norm Urine Ketones NEG Neg Urobilinogen NORM Norm Urine Bilirubin NEG Neg Urine Blood TRACE Neg Specific Magna NA Low 1.01-1.02 Lipid Profile 03/28/2011 [facility] Triglyceride 110 mg/dL 40-200 30 (Trig/Chol/HDL) [phone] Cholesterol 207 mg/dL High Less Than 200 31 High Density Lipoprotein 58 mg/dL 40-60 32 Cholesterol/HDL Ratio 3.57 AVERAGE 1-4.44 Low Density Lipoprotein 127 mg/dL High Less Than 100 33 Laboratory test 03/28/2011 [facility] TSH 1.04 MIU/ ML 0.34-5.60 finding [phone] Comp Metabolic 03/28/2011 [facility] Sodium 140 mmol/ L 135-145 Panel [phone] Potassium 3.6 mmol/L 3.5-5.0 Chloride 104 mmol/L 101-111 Co2 (Carbon Dioxide) 29.0 mmol/L 22-32 Anion Gap 7.0 mmol/L 2-11 34 Glucose 70 mg/dL 70-100 BUN 17 mg/dL 6-24 Creatinine 0.80 mg/dL 0.50-1.40 One Over Creatinine 1.20 BUN/Creatinine Ratio 21.3 High 8-20 Calcium 9.3 mg/dL 8.1-9.9 Total Protein 7.2 GM/DL 6.2-8.1 Albumin 4.4 GM/DL 3.2-5.2 Globulin 2.8 GM/DL 2-4 Albumin/Globulin Ratio 1.6 1-3 Bilirubin Total 0.6 mg/dL 0.4-1.5 35 Alkaline Phosphatase 76 U/L 30-110 Alt (SGPT) 14 U/L 14-54 Ast (Sgot) 21 U/L 12-42 eGFR Non- 70.3 > 60 eGFR 90.4 > 60 36 CBC Auto Diff 03/28/2011 [facility] White Blood 8.1 CUMM 4.8-10.8 [phone] Count Red Cell Count 4.73 CUMM 4.2-5.4 [...] Eosinophils 0.1 0-0.6 Abs Basophils 0.1 0-0.2 Sensitivities For Urine 03/28/2011 [facility] Ampicillin >=32 R Culture [phone] Amikacin <=2 S Ciprofloxacin <=0.25 S Ceftriaxone <=1 S Cefazolin 16 I Nitrofurantoin <=16 S Gentamicin <=1 S Imipenem <=1 S Levofloxacin <=0.12 S Trimeth-Sulfa <=20 S Ceftazidime <=1 S Tigecycline <=0.5 S Piperacillin/Tazobactam KB 29 S Urinalysis 03/28/2011 [facility] Ua Color YELLOW Yellow W/Microscopic [phone] Appearance-Urine CLEAR Clear Specific Magna-Ur 1.023 1.010-1.030 Esterase-Urine 2+ Abnormal Negative Nitrite NEGATIVE Negative [id number]-Xt-ETU NEGATIVE Negative Protein-Urine NEGATIVE Negative PH-Urine 6.0 5-9 Blood-Urine NEGATIVE Negative Ketones-Urine NEGATIVE Negative Bilirubin-Ur NEGATIVE Negative Glucose-Urine NEGATIVE Negative WBC-Urine 15-20 Abnormal 0-5 RBC-Urine 0-2 0-2 Epith Cells-Ur FEW None Bacteria-Urine TRACE None Urine Culture & 03/28/2011 [facility] Urine Culture ESCHERICHIA COLI 37 Sensitivi [phone] Sensitivi 1 [id number] 2 SEE RESULT BELOW Name: MARIA M LINDO : [address]: Rupert Gil MD Acct: [id number] Unit: [id number] AGE: 83 Location: [facility] Re11/25/18 SEX: F Status: REG REF SPEC: [id number] YARITZA: 11/25/[address] [facility] [address]: Rupert Gil MD REQ: [id number] RECD: 11/25/18 STATUS: COMP _ SOURCE: URINE SPDESC: ORDERED: Urine Culture COMMENTS: [id number] Urine Source: Random Procedure Result Reported Site Urine Culture Final 11/26/18- 1628 ML No Growth (<1,000 CFU/mL) * ML - Main Lab . END OF REPORT DEPARTMENT OF PATHOLOGY, [address] [place] [address] Brown Loo M.D. Director [facility] # [id number] 4 Because ethnic data is not always readily [...] 15-29 5 Kidney failure <15 (or dialysis) 5 [id number] Critical Result LACT:3.0 Called to PERLA at: 10:20:07 by:[id number] Read back by:PERLA [facility] Severe Sepsis and Septic Shock Management Bundle Measure requires all lactic acids initially measuring >2.0 mmol/L be repeated. 7 SEE RESULT BELOW Name: MARIA M LINDO : [address]: Mich Dawkins MD Acct: [id number] Unit: [id number] AGE: 83 Location: [place] [address] Re11/07/18 Dis: 11/08/18 SEX: F Status: DIS Abhishek SPEC: [id number] YARITZA: 11/07/18-[address] [facility] [address]: Dimitrios WATKINS REQ: [id number] RECD: 11/07/18 STATUS: [facility] GARCIA DR: [facility] Rupert Gil MD _ SOURCE: BLOOD,VENO SPDESC: ORDERED: Blood Cult Procedure Result Reported Site Aerobic Culture Bottle Final 11/12/18- 1034 ML No Growth Day 5 Anaerobic Culture Bottle Final 11/12/18- 1032 ML No Growth Day 5 * ML - Main Lab . END OF REPORT DEPARTMENT OF PATHOLOGY, [address] [place] [address] Brown Loo M.D. Director [facility] # [id number] 8 Because ethnic data is not always readily [...] 15-29 5 Kidney failure <15 (or dialysis) 9 SEE RESULT BELOW Name: MARIA M LINDO : [address]: Mich Dawkins MD Acct: [id number] Unit: [id number] AGE: 83 Location: [place] [address] Re11/07/18 Dis: 11/08/18 SEX: F Status: DIS Abhishek SPEC: [id number] YARITZA: 11/07/18-ALIZAK STEPHANIE DR: Carlyle Soto MD REQ: [id number] RECD: 11/07/18 STATUS: [facility] GARC[facility] DR: Rupert Gil MD _ SOURCE: URINE SPDESC: ORDERED: Urine Culture Procedure Result Reported Site Urine Culture Final 11/09/18- 821 ML Organism 1 ESCHERICHIA COLI [place] Count >100,000 (Many) CFU/ML 1. ESCHERICHIA COLI M.I.C. RX --------- ------ Ampicillin >=32 R Cefazolin <=4 S Cefepime <=1 S Ceftriaxone <=1 S Ciprofloxacin <=0.25 S Gentamicin <=1 S Levofloxacin <=0.12 S Meropenem <=0.25 S Nitrofurantoin <=16 S Tetracycline <=1 S Pipercillin/Tazobactam <=4 S Trimethoprim/Sulfamethoxazole <=20 S Amoxicillin/Clavulanic Acid 4 S Aztreonam <=1 S Contact the Microbiology Department for any additional antibiotic reporting. * ML - Main Lab . END OF REPORT DEPARTMENT OF PATHOLOGY, [address] [place] [address] Brown Loo M.D. Director [facility] # [id number] 10 Because ethnic data is not always readily [...] 15-29 5 Kidney failure <15 (or dialysis) 11 Normal Range 180 to 914 Indeterminate Range 145 to 180 Deficient Range <145 12 [id number] RECTAL BLEEDING 14 Because ethnic data is not always readily [...] 15-29 5 Kidney failure <15 (or dialysis) 15 SEE RESULT BELOW Name: MARIA M LINDO : [address]: Grace Portillo NP Acct: [id number] Unit: [id number] AGE: 81 Location: [facility] Re01/14/17 SEX: F Status: REG REF SPEC: [id number] YARITZA: 01/14/[address]: Grace Portillo NP REQ: [id number] RECD: 01/14/17 STATUS: RES _ SOURCE: STOOL SPDESC: ORDERED: C. diff PCR, Stool Culture, Fecal Lactoferr, Occult Bl, Scn, O P: Radha/Dino Procedure Result Reported Site Stool Culture PENDING [...] performed at Main Lab DEPARTMENT OF PATHOLOGY, [address] [place] [address] Brown Loo M.D. Director [facility] # [id number] Patient: MARIA M LINDO [id number] (Continued) Specimen: [id number] Collected: 01/14/17 Received: 01/14/17 (Continued) Procedure Result Reported Site O P: Giardia/Cryptospor Screen PENDING * ML - MAIN LAB ([facility]) . END OF REPORT * ML=Testing performed at Main Lab DEPARTMENT OF PATHOLOGY, [address] [place] [address] Brown Loo M.D. Director [facility] # [id number] 16 SEE RESULT BELOW Name: MARIA M LINDO : [address]: Grace Portillo NP Acct: [id number] Unit: [id number] AGE: 81 Location: [facility] Re01/14/17 SEX: F Status: REG REF SPEC: [id number] YARITZA: 01/14/[address]: Grace Portillo NP REQ: [id number] RECD: 01/14/17 STATUS: COMP _ SOURCE: STOOL SPDESC: ORDERED: Elzbieta bradshaw PCR, Stool Culture, Fecal Lactoferr, Occult [...] ON NEXT PAGE * ML=Testing performed at [facility] DEPARTMENT OF PATHOLOGY, [address] [place] [address] Brown Loo M.D. Director [facility] # [id number] Patient: MARIA M LINDO [id number] (Continued) Specimen: [id number] Collected: 01/14/17 Received: 01/14/17 (Continued) Procedure Result Reported Site Shiga Toxin 1 2 Final (continued) 01/15/17- 0920 C. difficile PCR Final 01/14/17- 1631 ML [...] is requested. Contact the Microbiology Department at [phone]. TEST LIMITATIONS: As with all diagnostic procedures, the results obtained should be used in conjunction with other clinical information available the physician, including confirmation CONTINUED ON NEXT PAGE * ML=Testing performed at Main Lab DEPARTMENT OF PATHOLOGY, [address] [place] [address] Brown Loo M.D. Director [facility] # [id number] Patient: MARIA M LINDO [id number] (Continued) Specimen: [id number] Collected: 01/14/17 Received: 01/14/17 (Continued) Procedure Result [...] not recommended. * ML - MAIN LAB ([facility]) . END OF REPORT * ML=Testing performed at Main Lab DEPARTMENT OF PATHOLOGY, [address] [place] [address] Brown Loo M.D. Director [facility] # [id number] 17 SEE RESULT BELOW Name: MARIA M LINDO : [address]: Rupert Gil MD Acct: [id number] Unit: [id number] AGE: 81 Location: [facility] Re04/29/16 SEX: F Status: REG REF SPEC: [id number] YARITZA: 04/29/16-[address] [facility] [address]: Rupert Gil MD REQ: [id number] RECD: 04/30/16 STATUS: COMP _ SOURCE: STOOL SPDESC: ORDERED: [...] Firm Shiga Toxin 1 2 Final 05/01/16- 821 ML Organism 1 Negative Shiga Toxin 1 2 Immunochromatographic Assay CONTINUED ON NEXT PAGE * ML=Testing performed at Main Lab DEPARTMENT OF PATHOLOGY, [address] [place] [address] Brown Loo M.D. Director [facility] # [id number] Patient: MARIA M LINDO [id number] (Continued) Specimen: [id number] Collected: 04/29/16 Received: 04/30/16 (Continued) Procedure Result Reported Site Shiga Toxin [...] Negative O P: Giardia/Cryptospor Screen Final 05/01/16- 0842 ML Organism 1 Neg Cryptosporidium/Giardia Giardia and cryptosporidium antigen testing performed by enzyme immunoassay. If patient is immunocompromised or has traveled to or is from a developing country, a full ova and parasite exam with microscopic (OPMIC) is recommended. All samples will be held one month in case full ova and parasite testing is requested. Contact the Microbiology Department at [phone]. TEST LIMITATIONS: As with all diagnostic procedures, the results obtained should be used in conjunction with other clinical information available the physician, including confirmation by another method. Negative results can occur in samples containing antigen below lower limits of detection of the CONTINUED ON NEXT PAGE * ML=Testing performed at Main Lab DEPARTMENT OF PATHOLOGY, [address] [place] [address] Brown Loo M.D. Director [facility] # [id number] Patient: MARIA M LINDO [id number] (Continued) Specimen: [id number] Collected: 04/29/16-1799 Received: 04/30/16-351 (Continued) Procedure Result Reported Site O P: [...] and are not recommended. * ML - [facility] ([facility]) . END OF REPORT * ML=Testing performed at Main Lab DEPARTMENT OF PATHOLOGY, [address] [place] [address] Brown Loo M.D. Director [facility] # [id number] 18 Because ethnic data is not always readily [...] 15-29 5 Kidney failure <15 (or dialysis) 19 HDL Interpretation: Undesirable: High Risk: Less than 40 mg/dL Desirable: Low Risk: Greater than 60 mg/dL 20 LDL Interpretation: Low Risk Optimal Level: LDL Less than 100 mg/dL Near or Above Optimal: LDL 100-129 mg/dL Borderline High Risk: LDL 130-159 mg/dL High Risk: LDL 160-189 mg/dL Very High Risk: LDL Greater than 189 mg/dL 21 Recommended INR for Patients on Oral Anticoagulants Prophylaxis 2.0 - 3.0 Treatment of thrombosis 2.0 - 3.0 Prevention of embolism 2.0 - 3.0 Prevention of embolism from prosthetic heart valves 2.5 - 3.5 22 DIAGNOSIS,TREATMENT,AND THERAPY MUST BE BASED ON THE INR VALUE ALONE. 23 Lymphopenia % Basophilia % 24 Anion gap measurement may be of limited value in the presence of any alkalosis, especially in a combined acid base disorder. . 25 A metabolite of Naproxen, O-desmethylnaproxen, has been shown to interfere with the Jendrassik-Toni method for measuring total bilirubin. Samples from patients who have taken Naproxen have shown spurious elevation in total bilirubin levels. 26 Because ethnic data is not always readily [...] 15-29 5 Kidney failure <15 (or dialysis) 27 Recommended INR for Patients on Oral Anticoagulants Prophylaxis 2.0 - 3.0 Treatment of thrombosis 2.0 - 3.0 Prevention of embolism 2.0 - 3.0 Prevention of embolism from prosthetic heart valves 2.5 - 3.5 28 DIAGNOSIS,TREATMENT,AND THERAPY MUST BE BASED ON THE INR VALUE ALONE. 29 Neutrophilia % Lymphopenia % 30 NON FASTING 31 CHOLESTEROL INTERPRETATION: Desirable: Less than 200 MG/DL Borderline-High Risk: 200-239 MG/DL High-Risk: 240 MG/DL and over 32 HDL INTERPRETATION: Undesirable: High Risk: Less than 40 MG/DL Desirable: Low Risk: Greater than 60 MG/DL 33 LDL INTERPRETATION: Low Risk Optimal Level: LDL Less than 100 MG/DL Near or Above Optimal: LDL 100-129 MG/DL Borderline High Risk: LDL 130-159 MG/DL High Risk: LDL 160-189 MG/DL Very High Risk: LDL Greater than 189 MG/DL 34 Anion gap measurement may be of limited value in the presence of any alkalosis, especially in a combined acid base disorder. . 35 A metabolite of Naproxen, O-desmethylnaproxen, has been shown to interfere with the J[place]rassik-[place] method for measuring total bilirubin. Samples from patients who have taken Naproxen have shown spurious elevation in total bilirubin levels. 36 Because ethnic data is not always readily [...] 15-29 5 Kidney failure <15 (or dialysis) 37 100^75-100,000 ORGANISMS/ML (MANY)^CCU Procedures Date Code Description Status 12/02/2016 43071 Spirometry-Bronchospasm Evaluation, Before & After Completed Bronchodilator 08/26/2013 83723 Removal-Impacted Cerumen Completed 01/02/2012 65148 Removal-Impacted Cerumen Completed 03/28/2011 58214 Removal-Impacted Cerumen Completed 08/11/2008 [id number] Mammogram Completed 08/11/2007 [id number] Colonoscopy Completed Encounters Type Date Location Provider Dx Diagnosis Office Visit 12/02/2018 Main Office Rupert Gil, F01.50 Vascular dementia 11:00a without behavioral disturbance I10 Essential (primary) hypertension R44.1 Visual hallucinations Office Visit 11/16/2018 10:30a Main Office Rupert Gil N39.0 Urinary tract infection, site not specified R41.82 Altered mental status, unspecified Office Visit 11/04/2018 9:15a Main Office Rupert Gil, I10 Essential (primary) MD hypertension R44.1 Visual hallucinations Office Visit 02/24/2018 2:15p Main Office Rupret Gil J44.9 Chronic MD obstructive pulmonary disease, unspecified Office Visit 01/22/2018 4:30p Main Office Donald Gusman44.9 Chronic DRY MOLDER obstructive pulmonary disease, unspecified Office Visit 11/06/2017 9:00a Main Office Rupert Gil, 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 I10 Essential (primary) hypertension Office Visit 01/23/2017 2:15p Main Office Rupert Gil R19.7 Diarrhea, unspecified J44.9 Chronic obstructive pulmonary disease, unspecified Office Visit 01/13/2017 3:45p Main Office Grace Valero R19.7 Diarrhea, Storm, [employer]ION MANAGER-C unspecified Office Visit 12/16/2016 11:15a Main Office Rupert Issa obstructive MD Jeffery pulmonary disease, unspecified Office Visit 12/02/2016 3:00p Main Office Rupert Lopez Cough MD Jeffery J44.9 Chronic obstructive pulmonary disease, unspecified Office Visit 04/29/2016 10:45a Main Office Rupert Gil, K59.00 MD Abigail unspecified Z12.11 Encounter for screening for malignant neoplasm of colon Office Visit 11/27/2015 11:00a Main Office Garima Whittintgon, H61.23 Impacted cerumen, [employer] PRE[employer]ION MANAGER-C bilateral Office Visit 08/26/2013 9:30a Main Office Karno Anne, V70.0 Examination M.D., R.D. General Medical Routine AT [facility] 238.2 Neoplasm Uncertain Behavior Skin 380.4 Impacted Cerumen Office Visit 05/07/2013 3:00p Main Office Garima Whittington, 785.6 Lymph Nodes [employer]ION MANAGER-C Enlargement Office Visit 01/11/2013 4:45p Main Office Shawnti R. 380.22 Otitis Externa Storm, [employer] PRE[employer]ION MANAGER-C Other Acute Office Visit 01/02/2012 2:30p Main [...] Main Office Karon Anne, 401.1 Hypertension Benign M.Eneida, R.D. 783.21 Loss Of Weight Plan of Treatment 01/06/2019 - Rupert Gil MDI10 Essential (primary) hypertensionComments: Trial off lisinopril. She does have COPD, but the current cough is more nagging and much more frequent. If she feels better off lisinopril, we will send in a script for an alternative medication, probably an ARB.
--- NOTE | 2019-01-27 14:08 | ED ---
Lower Extremity - HPI Summary HPI Summary: Pt is an 83 y/o F presenting to [facility] with her daughter for a CC of a R thigh injury sustained on 01/23/19. The pts daughter reported that her sister witnessed her mother fall but does not know exactly how it happened. The pt stated that she fell in her kitchen and landed on her R side. The pain was not present when she fell. The pt stated that the pain increased since the onset to the point where it became unbearable to walk. She denies any other injuries and reports no spinal pain or head pain. She denies any CP, abdominal pain, fevers, dysuria, hematuria and N/V/D. She states that weight bearing and ambulation cause an increase in pain along her R thigh and she reports no alleviating symptoms. She had a surgery to her R side 9 years ago for her femur. She refuses any opioids. - History of Current Complaint Chief Complaint: EDExtremityLower Stated Complaint: FELL PAIN IN RT HIP/LEG PER PT Time Seen by Provider: 01/27/19 13:27 Hx Obtained From: Patient, Family/Plate Glass Grinder - daughter Mechanism Of Injury: Fall From A Standing Position - in her kitchen, fell onto her R side Onset of Pain: Days - Pain started 01/26/19, Post Accident Onset/Duration: Worse Since - this morning Severity Initially: Moderate Severity Currently: Severe Pain Intensity: 10 Pain Scale Used: 0-10 Numeric Timing: Constant Location: Other - R anterior thigh, radiates to her posterior pelvis Associated Signs And Symptoms: Positive: Negative - CP, abdominal pain, N/V/D, fevers, dysuria, hematuria, spinal pain or head pain., Other - R anterior thigh pain, R posterior pelvis pain. Negative: Abdominal Pain, Knee Pain Aggravating Factor(s): Standing, Movement, Weight Bearing Alleviating Factor(s): Rest Able to Bear Weight: Yes - Allergies/Home Medications Allergies/Adverse Reactions: Allergies Allergy/AdvReac Type Severity Reaction Status Date / Time Sulfa (Sulfonamide Allergy See Comment Verified 01/27/19 12:26 Antibiotics) PMH/Surg Hx/FS Hx/Imm Hx Previously Healthy: No Endocrine/Hematology History: Denies: Hx Diabetes Cardiovascular History: Denies: Hx Hypertension, Hx Pacemaker/ICD Sensory History: Reports: Hx Contacts or Glasses, Hx Hearing Problem - [place] Denies: Hx Hearing Aid Opthamlomology History: Reports: Hx Contacts or Glasses Psychiatric History: Denies: Hx Panic Disorder - Surgical History Surgery Procedure, Year, and Place: RIGHT HIP. CATARACTS. RT LEG SURGERY WITH JOSE ROBERTO AND 7 SCREWS Infectious Disease History: No Infectious Disease History: Denies: Traveled Outside the [place] in Last 30 Days - Family History Known Family History: Negative: Cardiac Disease, Diabetes - Social History Alcohol Use: None Hx Substance Use: No Substance Use Type: Reports: None Hx Tobacco Use: No Smoking Status (MU): Former Smoker Review of Systems Negative: Fever Negative: Abdominal Pain, Vomiting, Diarrhea, Nausea Negative: dysuria, hematuria Musculoskeletal: Negative - Neck pain/spinal pain, and head pain Positive: Other - R anteriot thigh pain, R posterior pelvis All Other Systems Reviewed And Are Negative: Yes Physical Exam - Summary Physical Exam Summary: Constitutional: Well-developed, Well-nourished, Alert. (-) Distressed Skin: Warm, Dry HENT: Normocephalic; Atraumatic Eyes: Conjunctiva normal Neck: Musculoskeletal ROM normal neck. (-) JVD, (-) Stridor, (-) Tracheal deviation Cardio: Rhythm regular, rate normal, Heart sounds normal; Intact distal pulses; The pedal pulses are 2+ and symmetric. Radial pulses are 2+ and symmetric. (-) Murmur, good pulses Pulmonary/Chest wall: Effort normal. (-) Respiratory distress, (-) Wheezes, (-) Rales Abd: Soft, (-) tenderness, (-) Distension, (-) Guarding, (-) Rebound Musculoskeletal: (-) Edema, tender to palpation of her lower back superior gluteal over the Iliac crest, hip is non tender, tender to palpation to one spot 2/3 down her femur. Internal rotation causes pain in her r leg and lower back Lymph: (-) Cervical adenopathy Neuro: Alert, Oriented x3, neurovascular sensations are intact Psych: Mood and affect Normal tender to palpation of her lower back superior gluteal over the Iliac crest, hip is non tender, tender to palpation to one spot 2/3 down her femur. Internal rotation causes pain in her r leg and lower back, good pulses, neurovascular sensations are intact Triage Information Reviewed: Yes Vital Signs On Initial Exam: Initial Vitals Temp Pulse Resp BP Pulse Ox 98.3 F 82 16 200/105 95 06/19/19 12:22 01/27/19 12:22 01/27/19 12:22 01/27/19 12:22 01/27/19 12:22 Vital Signs Reviewed: Yes Diagnostics - Vital Signs Vital Signs Temp Pulse Resp BP Pulse Ox 01/27/19 12:22 98.3 F 82 16 200/105 95 - Laboratory Lab Statement: Any lab studies that have been ordered have been reviewed, and results considered in the medical decision making process. - Radiology Femur X-Ray Radiology Interpretation Completed By: Radiologist Summary of Radiographic Findings: 1. OSTEOPENIA. 2. OSTEOARTHRITIS. 3. STATUS POST INTERNAL FIXATION OF THE RIGHT FEMUR. 4. NO RADIOGRAPHIC EVIDENCE FOR HIP FRACTURE. Ed physician has reviewed this report Hip/Pelvis X-Ray Radiology Interpretation Completed By: Radiologist Summary of Radiographic Findings: 1. OSTEOPENIA. 2. OSTEOARTHRITIS. 3. STATUS POST INTERNAL FIXATION OF THE RIGHT FEMUR. 4. NO RADIOGRAPHIC EVIDENCE FOR HIP FRACTURE. ED physician has reviewed this report. Re-Evaluation - Re-Evaluation First Eval Re-Evaluation Time: 15:59 Change: Improved Comment: Pt was informed of her X-Ray findings and a discharge and plan was discussed. The pt is agreeable. Lower Extremity Course/Dx - Course Course Of Treatment: Pt is an 83 y/o F presenting to [facility] with her daughter for a CC of a R thigh injury sustained on 01/23/19. The pts daughter reported that her sister witnessed her mother fall but does not know exactly how it happened. The pt stated that she fell in her kitchen and landed on her R side. The pain was not present when she fell. The pt stated that the pain increased since the onset to the point where it became unbearable to walk. During her PE the pt is found to have the following: Tender to palpation of her lower back superior gluteal over the Iliac crest, hip is non tender, tender to palpation to one spot 2/3 down her femur. Internal rotation causes pain in her r leg and lower back, good pulses, neurovascular sensations are intact. She received a femur X-Ray that shows: 1. OSTEOPENIA. 2. OSTEOARTHRITIS. 3. STATUS POST INTERNAL FIXATION OF THE RIGHT FEMUR. 4. NO RADIOGRAPHIC EVIDENCE FOR HIP FRACTURE. She also received a Hip/Pelvis X-Ray that shows: 1. OSTEOPENIA. 2. OSTEOARTHRITIS. 3. STATUS POST INTERNAL FIXATION OF THE RIGHT FEMUR. 4. NO RADIOGRAPHIC EVIDENCE FOR HIP FRACTURE. She was given APAP 650 mg during her ED course. She will be discharged home with instructions to follow up with her PCP in 2-3 days and return to the ED with any new or worsening symptoms. Her Dx on discharge is hip contusion and leg contusion. - Diagnoses Provider Diagnoses: Contusion, hip, Contusion of leg Discharge - Sign-Out/Discharge Documenting (check all that apply): Patient Departure - discharge Patient Received Moderate/Deep Sedation with Procedure: No - Discharge Plan Condition: Stable Disposition: HOME Prescriptions: Meloxicam [Qmiiz Odt] 15 mg PO DAILY #15 tab.rapdis Patient Education Materials: Musculoskeletal Pain (ED), Hip Contusion (ED) Print Language: KINYARWANDA Referrals: Rupert Gil MD [Primary Care Provider] - Arlet Lindo MD [Medical Doctor] - - Billing Disposition and Condition Condition: STABLE Disposition: Home - Attestation Statements Document Initiated by Mirna: Yes Documenting Scribe: Hernando Solorio Provider For Whom Mirna is Documenting (Include Credential): Bianca Britt MD Scribe Attestation: IHernando, scribed for Bianca Spencer MD on 01/27/19 at 2156. Scribe Documentation Reviewed: Yes Provider Attestation: The documentation as recorded by the Hernando bundy accurately reflects the service I personally performed and the decisions made by me, Bianca Spencer MD Status of Scribe Document: Viewed
[2019-01-27] MEDS ORDERED: Meloxicam(NF) 15 MG TAB PO ONE (15:25)
[2019-01-27] MEDS: Acetaminophen TAB* 325 MG PO ONE (15:48)
[2019-01-27] MEDS: Meloxicam(NF) 7.5 MG TAB PO ONE (16:09)
[2019-01-27 16:23] VITALS: BP 170/86
== END 2019-01-27 16:22 | disposition home or self-care (01) ==
LOC: ED 12:17
DX: S70.01XA Contusion of right hip, initial encounter (principal); S80.11XA Contusion of right lower leg, initial encounter; W19.XXXA Unspecified fall, initial encounter; Y92.000 Kitchen of unspecified non-institutional (private) residence as the place of occurrence of the external cause; Z87.891 Personal history of nicotine dependence; M16.11 Unilateral primary osteoarthritis, right hip; M85.88 Other specified disorders of bone density and structure, other site
CPT/HCPCS: 99282; A9270-GY

== ENCOUNTER 2019-05-03 14:44 | Emergency (ER) | payer MEDICARE ==
[2019-05-03 14:50] VITALS: BP 166/76
== END 2019-05-03 16:03 | disposition left against medical advice (07) ==
LOC: ED 14:44
DX: Z53.21 Procedure and treatment not carried out due to patient leaving prior to being seen by health care provider (principal); K92.1 Melena; Z79.82 Long term (current) use of aspirin; Z79.899 Other long term (current) drug therapy; Z88.2 Allergy status to sulfonamides
CPT/HCPCS: 99282

== ENCOUNTER 2019-05-04 07:23 | Emergency (ER) | payer MEDICARE ==
[2019-05-04] MEDS ORDERED: NS 0.9% 1000 ML** 1,000 ML IV ONE (07:50)
--- NOTE | 2019-05-04 07:53 | ED ---
Abdominal Pain/Female - HPI Summary HPI Summary: Pt is an 84 y/o F presenting to the ED for a chief complaint of lower abdominal pain. Pts daughter brought her to the ER after having black stools for one week. The pain improved yesterday initially but came back today. It is worsened before a bowel movement. Pt previously went to [facility] for bright red blood in her stool last year, where she had the bleed cauterized. Pt states this time, it is black stool rather than bright red blood. She denies fever. Pt takes baby aspirin and last had a colonoscopy one year ago before her GI bleed. Pt states her GI physician told her she no longer could have colonoscopies d/t increased risk. Pt has a PMHx of diverticulitis and an 8 ft colon resection. - History of Current Complaint Chief Complaint: EDAbdPain Stated Complaint: STOMACH PAINS/BLOOD IN STOOL PER PT Time Seen by Provider: 05/04/19 07:41 Hx Obtained From: Patient, Family/Hog Buyer Onset/Duration: Sudden Onset, Lasting Minutes, Lasting Days Timing: Days Severity Initially: Moderate Severity Currently: Mild Pain Intensity: 0 Pain Scale Used: 0-10 Numeric Location: Suprapubic Aggravating Factor(s): Movement - Before bowel movement Associated Signs and Symptoms: Positive: Blood in Stool. Negative: Fever, Constipation Allergies/Adverse Reactions: Allergies Allergy/AdvReac Type Severity Reaction Status Date / Time Sulfa (Sulfonamide Allergy See Comment Verified 05/04/19 07:40 Antibiotics) Home Medications: Home Medications Losartan TAB* 10 mg PO BEDTIME 05/04/19 [History Confirmed 05/04/19] PMH/Surg Hx/FS Hx/Imm Hx Previously Healthy: Yes Endocrine/Hematology History: Denies: Hx Diabetes Cardiovascular History: Denies: Hx Hypertension, Hx Pacemaker/ICD Sensory History: Reports: Hx Contacts or Glasses, Hx Hearing Problem - [place] Denies: Hx Hearing Aid Opthamlomology History: Reports: Hx Contacts or Glasses Psychiatric History: Denies: Hx Panic Disorder - Surgical History Surgery Procedure, Year, and Place: RIGHT HIP. CATARACTS. RT LEG SURGERY WITH JOSE ROBERTO AND 7 SCREWS Infectious Disease History: No Infectious Disease History: Denies: Traveled Outside the [place] in Last 30 Days - Family History Known Family History: Negative: Cardiac Disease, Diabetes - Social History Alcohol Use: None Hx Substance Use: No Substance Use Type: Reports: None Hx Tobacco Use: No Smoking Status (MU): Former Smoker Review of Systems Negative: Fever Positive: Abdominal Pain - Before bowel movements, Other - Melena All Other Systems Reviewed And Are Negative: Yes Physical Exam - Summary Physical Exam Summary: VITAL SIGNS: Reviewed. GENERAL: Patient is a well-developed and nourished (FEMALE) who is lying comfortable in the stretcher. Patient is not in any acute respiratory distress. HEAD AND FACE: No signs of trauma. No ecchymosis, hematomas or skull depressions. No sinus tenderness. EYES: PERRLA, EOMI x 2, No injected conjunctiva, no nystagmus. EARS: Hearing grossly intact. Ear canals and tympanic membranes are within normal limits. MOUTH: Oropharynx within normal limits. NECK: Supple, trachea is midline, no adenopathy, no JVD, no carotid bruit, no c- spine tenderness, neck with full ROM. CHEST: Symmetric, no tenderness at palpation. LUNGS: Clear to auscultation bilaterally. No wheezing or crackles. CVS: Regular rate and rhythm, S1 and S2 present, no murmurs or gallops appreciated. ABDOMEN: Soft. No signs of distention. No rebound, no guarding, and no masses palpated. Bowel sounds are normal. LUQ tenderness. EXTREMITIES: FROM in all major joints, no edema, no cyanosis or clubbing. NEURO: Alert and oriented x 3. No acute neurological deficits. Speech is normal and follows commands. SKIN: Dry and warm. RECTAL: No hemorrhoids, no gross blood or melena. Triage Information Reviewed: Yes Vital Signs On Initial Exam: Initial Vitals Temp Pulse Resp BP Pulse Ox 98 F 116 26 163/95 96 05/04/19 07:26 05/04/19 07:26 05/04/19 07:26 05/04/19 07:26 05/04/19 07:26 Vital Signs Reviewed: Yes Diagnostics - Vital Signs Vital Signs Temp Pulse Resp BP Pulse Ox 05/04/19 07:26 98 F 116 26 163/95 96 - Laboratory Result Diagrams: 05/04/19 08:14 05/04/19 08:14 Lab Statement: Any lab studies that have been ordered have been reviewed, and results considered in the medical decision making process. - CT Abdomen/Pelvis CT CT Interpretation Completed By: Radiologist Summary of CT Findings: Abdomen/Pelvis CT IMPRESSION: 1. THERE IS DIFFUSE MUCOSAL THICKENING OF THE DISTAL COLON. THE DIFFERENTIAL INCLUDES COLITIS. THERE IS MORE FOCAL CIRCUMFERENTIAL MUCOSAL THICKENING OF THE ASCENDING COLON. THIS MAY REPRESENT ANOTHER AREA OF INFLAMMATORY COLITIS, THOUGH COLONIC MUCOSAL NEOPLASM. MAY GIVE A SIMILAR APPEARANCE. RECOMMEND CONSIDERATION OF CORRELATION WITH DIRECT. VISUALIZATION. 2. DIVERTICULOSIS. 3. ATHEROSCLEROSIS. 4. CHOLELITHIASIS. 5. DIVERTICULUM OF THE SECOND STAGE OF THE DUODENUM. Reviewed by ED physician. - EKG 07:57 Cardiac Rate: NL - 89 BPM EKG Rhythm: Sinus Rhythm ST Segment: Normal Ectopy: None EKG Comparison: No Significant Change Summary of EKG Findings: EKG at 07:57 shows a sinus rhythm of 89 BPM, no STEMI, normal axis similar to 07/19/2011. EKG reviewed and interpreted by ED physician. Re-Evaluation - Re-Evaluation 1st re-eval Re-Evaluation Time: 11:42 Comment: At 11:42, I discussed results of CT with pt. I will be consulting GI. Abdominal Pain Fem Course/Dx - Course Course Of Treatment: Patient is an 84-year-old female who presents to the emergency department with a chief complaint of having lower abdominal pain in the left lower quadrant, and black stools. Blood work without any significant abnormality except potassium level 3.4, glucose 107, and CRP of 36.59. I performed a rectal exam which showed no gross blood or melena. However since the patient has some left lower quadrant tenderness I decided to do abdominopelvic CT to rule out diverticulitis. Abdominopelvic CT impression: 1. THERE IS DIFFUSE MUCOSAL THICKENING OF THE DISTAL COLON. THE DIFFERENTIAL INCLUDES. COLITIS. THERE IS MORE FOCAL CIRCUMFERENTIAL MUCOSAL THICKENING OF THE ASCENDING COLON. THIS MAY REPRESENT ANOTHER AREA OF INFLAMMATORY COLITIS, THOUGH COLONIC MUCOSAL NEOPLASM. MAY GIVE A SIMILAR APPEARANCE. RECOMMEND CONSIDERATION OF CORRELATION WITH DIRECT. VISUALIZATION. 2. DIVERTICULOSIS. 3. ATHEROSCLEROSIS. 4. CHOLELITHIASIS. 5. DIVERTICULUM OF THE SECOND STAGE OF THE DUODENUM. At this time I discussed my physical exam and findings with Dr. Javier from GI who came and assessed the patient. After his assessment he recommended for the patient to be discharged home with indications for a bland diet and follow-up at his office. I discussed my physical exam and findings with the patient as well as the plan and she agrees. Patient also was recommended to return to the emergency department if she develops any other pain. Patient is hemodynamically stable alert oriented 3. - Diagnoses Provider Diagnoses: Colitis Discharge ED - Sign-Out/Discharge Documenting (check all that apply): Patient Departure Patient Received Moderate/Deep Sedation with Procedure: No - Discharge Plan Condition: Stable Disposition: HOME Referrals: Rupert Gil MD [Primary Care Provider] - Additional Instructions: Upon returning home, make sure you follow a bland diet. Follow up with Dr. Javier within the next 2-3 days. Return to the emergency department with any new or worsening symptoms. - Billing Disposition and Condition Condition: STABLE Disposition: Home - Attestation Statements Document Initiated by Scribe: Yes Documenting Scribe: [place]re [place] Provider For Whom Mirna is Documenting (Include Credential): Timmy Joaquin MD. Scribe Attestation: I, Mere [place], scribed for Timmy Joaquin MD. on 05/05/19 at 0733. Scribe Documentation Reviewed: Yes Provider Attestation: The documentation as recorded by the scribe, [place] accurately reflects the service I personally performed and the decisions made by me, Timmy Joaquin MD. Status of Scribe Document: Viewed Consult Consult: At 11:[address] Javier who will be coming up to see the pt. Dr. Javier recommended suggesting a bland diet to the patient, discharging her , and having her follow up with him in outpatient. I informed the pt of this plan and she is agreeable.
[2019-05-04 08:23] LABS: ABS Basophils 0.1 10^3/ul (0-0.2); ABS Eosinophils 0.1 10^3/ul (0-0.6); ABS Lymphocytes 1.2 10^3/ul (1.0-4.8); ABS Monocytes 1.1 10^3/ul (0-0.8); ABS Neutrophils 6.7 10^3/ul (1.5-7.7); Eosinophil % 1.5 %; Hematocrit 40 % (35-47); Hemoglobin 13.6 g/dL (12.0-16.0); Lymphocyte % 12.8 %; Mean Corpuscular HGB Conc 34 g/dL (31-36); Mean Corpuscular Hemoglobin 29 pg (27-31); Mean Corpuscular Volume 87 fL (80-97); Mean Platelet Volume 7.6 fL (7.4-10.4); Platelet Count 266 10^3/uL (150-450); Red Blood Count 4.63 10^6 /uL (3.70-4.87); Red Cell Distribution Width 14 % (10-15); White Blood Count 9.1 10^3/uL (3.5-10.8)
[2019-05-04 08:40] LABS: Albumin 4.1 g/dL (3.2-5.2); Albumin/Globulin Ratio 1.3 (1-3); BUN/Creatinine Ratio 25.6 (8-20); C Reactive Protein 36.59 mg/L (<8.01); Calcium 9.3 mg/dL (8.6-10.3); EGFR African American 85.6 (>60); EGFR Non-African American 70.7 (>60); Globulin 3.2 g/dL (2-4); Potassium 3.4 mmol/L (3.5-5.0); Total Bilirubin 0.4 mg/dL (0.2-1.0); Total Protein 7.3 g/dL (6.4-8.9)
[2019-05-04] MEDS ORDERED: Iohexol 300* (CONTRAST) 10 ML SDV IV ONE (08:45)
[2019-05-04] MEDS ORDERED: Potassium Chlor TAB* 20 MEQ TAB.ER PO ONE (11:44)
[2019-05-04 13:39] VITALS: BP 145/67
--- NOTE | 2019-05-05 10:01 | CONS ---
GASTROENTEROLOGY CONSULT REPO RT:DATE: 05/04/19 - EMERGENCY DEPT CONSULTING PHYSICIAN: Timmy Joaquin MD REASON FOR CONSULT: Lower abdominal pain and rectal bleeding. HISTORY: This 84-year-old woman brought to the emergency room by her daughter with whom she moved in 2 weeks ago after 8 years ago moving here from [place], [place]. The daughter assists in the history stating her mother has been diagnosed with vascular dementia though their discussions reveal that the daughter deferred to her mother's memory fairly often referencing her own cerebral aneurysm episodes 3 times. The patient states that about a week ago she began noting some blood in the stool and she complained of some lower abdominal pain. She was not overtly ill according to the daughter as there was no vomiting or fever. She was eating regular food. The patient initially described seeing blood and then later the stool is described as black. She actually came to the emergency room yesterday but due to multiple patients in the triage process, blood was drawn but she was never seen. The patient is feeling somewhat better but stated that she wanted to know what was going on and therefore came back. She had also contacted the office where she was seen 2 years ago to evaluate diarrhea and was told she should come to the emergency room first. In general, she eats a regular diet without restrictions. Her appetite has been good and weight is steady. Her bowel habit is daily to every other day. They described it as somewhat constipated, but she is not taking any laxatives. There had been diarrhea workups in the past. She had part of her colon removed in 2007 at [facility] for bleeding. A year ago, she came to the emergency room with rectal bleeding and was transferred to [facility] [place] where they state colon exam was done and "it was cauterized." She has not been acutely ill since then. PAST MEDICAL HISTORY: 1. COPD - she quit smoking around 2009 (per history and physical here in 2010). 2. Status post appendectomy in 1994. 3. Status post sigmoid colectomy - 2007, records not available. 4. Functional bowel habit changes - multiple stool studies 2015 and 2016 give differing results with positive fecal lactoferrin once, though heme-negative stool and the last specimen describing the stool is hard. C. diff was negative x2. Studies sent by Luci Angel NP. 5. Status post hip fracture with surgery July 2011. 6. Hypertension. 7. Urosepsis - October 2018 admission. MEDICATIONS: 1. ProAir inhaler. 2. Ventolin inhaler. 3. Aspirin 81 mg. 4. Hydrochlorothiazide 25. 5. Acidophilus. FAMILY HISTORY: Her father had lung cancer. Her mother lived to old age. SOCIAL HISTORY: She lives with her daughter, Mariama Davis in [place] and uses [facility] for primary care. 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 REVIEW OF SYSTEMS: No history of syncope, arrhythmias, [place], hemoptysis, TB, hepatitis, food allergies, renal stones, hematuria, skin rashes, or seizures. PHYSICAL EXAM: She is a slender, elderly woman, in no overt distress. She appears quite calm. Afebrile, pulse 87, respirations 24, blood pressure 145/ 67. HEENT exam is unremarkable. There is no icterus, mucous membrane abnormalities, adenopathy. Breath sounds are diminished bilaterally symmetrically. There are no rales or rhonchi. Heart sounds are regular. Breast and pelvic exams are deferred. Her abdomen is symmetric with a lower midline scar. Bowel sounds are normal. Abdomen is soft without focal tenderness. She had a spontaneous bowel movement, which was sludgy, loose, brown and without blood and stating "it's thickening up." Extremities show no edema or deformity. Stool occult blood submitted was negative. DIAGNOSTIC STUDIES/LAB DATA: Hemoglobin 13.6, hematocrit 40, MCV 87, white count 9.1. LFTs normal. BUN 20, creatinine is 0.78. CRP 36. Albumin 4.1. CT scan - thickening of the distal colon, diverticulosis, atherosclerosis, and gallstones. IMPRESSION: This 84-year-old woman has had loose stools described as being overtly bloody or being dark about a week. The history is very vague although clearly there has been an acute illness. At the moment, she seems to be improving. Most likely she has had an episode of gastroenteritis or a mild episode of ischemic colitis. The elevated CRP is most compatible with that as opposed to an episode of diverticulitis and/or diverticular bleeding in combination. She ate regular food yesterday and appears stable and with a normal white count and being afebrile. She can be discharged to a bland diet and outpatient followup. No antibiotics are needed at the moment. [id number]/[facility] #: [id number] MAR
== END 2019-05-04 13:30 | disposition home or self-care (01) ==
LOC: ED 07:23
DX: K52.9 Noninfective gastroenteritis and colitis, unspecified (principal); R10.30 Lower abdominal pain, unspecified; Z88.2 Allergy status to sulfonamides; Z87.891 Personal history of nicotine dependence
CPT/HCPCS: 36415; 74177; 80053; 82270; 83605; 83690; 85025; 86140; 86850; 86900; 86901; 93005; 96360; 96361; 99284; A9270-GY; Q9967

== ENCOUNTER 2019-05-25 09:59 | Inpatient (IN) | payer MEDICARE ==
--- OUTSIDE RECORDS SUMMARY | 2019-05-25 10:10 | XMS REPORT | Continuity of Care Document ---
:1935 External Reference #:[id number] Author Name Jennifer Kiser PA-C Address [address] [place] [address] Care Team Providers Name Role Phone Rupert Gil MD Care Team Information Lathe Operator [phone] Problems Active Problems Provider Date Gastrointestinal tract finding Jennifer Kiser PA-C Onset: 05/12/2019 Melena Jennifer Kiser PA-C Onset: 05/12/2019 Digestive symptom Jennifer Kiser PA-C Onset: 05/12/2019 Abdominal pain Jennifer Kiser PA-C Onset: 05/12/2019 Slow transit constipation Jennifer Kiser PA-C Onset: 12/15/2017 Hemorrhage of large intestine with Jennifer Kiser PA-C Onset: 2017 diverticular disease of large intestine Essential hypertension Jennifer Kiser PA-C Onset: 05/12/2019 Social History Type Date Description Comments Sex Unknown ETOH Use Rarely consumes alcohol Tobacco Use Start: Unknown End: Unknown Patient is a former smoker Smoking Status Reviewed: 05/12/19 Patient is a former smoker Allergies, Adverse Reactions, Alerts Active Allergies Reaction Severity Comments Date Sulfa 02/17/2017 Medications Active Medications SIG Qnty Indications Ordering Date Provider Proair HFA 1-2 puffs every 6 8.500unit Sunday Gil 108(90Base) mcg/Act hours as needed ramses coreas MD 7 Aerosol Aspir-81 1 po qd 30tabs Thony Anne 81mg Tablets DR rommel MD 1 Fiber Supplement Unknown 0 Miralax 1 scoop daily Unknown 3350NF Powder 0 Incruse Ellipta Inhale One puff Unknown 62.5mcg/Inh By Mouth Every 0 Aerosol Day For Chronic Obstructive Lung Disease Hydrochlorothiazide [place],Sunday 12.5mg rit,MD 0 Capsules Losartan Potassium [place],Sunday 100mg rit,MD 0 Tablets Meloxicam Take One Tablet Unknown 15mg Tablets By Mouth Every 0 Day Lisinopril Take One Tablet Unknown 10mg Tablets By Mouth Every 0 Day Immunizations CPT Code Status Date Vaccine Lot # [id number] Given 05/11/2003 Pneumovax 35958 Refused 01/13/2017 Influenza Virus Vaccine, Quadrivalent, Split, Preservative Free Vital Signs Date Vital Result Comment 05/12/2019 8:15am Height 63 inches 5'3" Weight 131.00 lb BP Systolic 161 mmHg BP Diastolic 79 mmHg Heart Rate 98 /min BMI (Body Mass Index) 23.2 kg/m2 01/21/2018 8:52am Height 63 inches 5'3" Weight 128.00 lb BP Systolic 148 mmHg BP Diastolic 90 mmHg Heart Rate 90 /min BMI (Body Mass Index) 22.7 kg/m2 Results Test Date Facility Test Result H/L Range Note Laboratory test 05/13/2019 [facility] [place] SEE RESULT 1 finding BELOW Stool Occult Blood 05/13/2019 [facility] [place]ult SEE RESULT 2 Diag Blood, Diag BELOW 1 SEE RESULT BELOW Name: JOHNNA LIDNO : [address]: Jennifer WATKINS Acct: [id number] Unit: [id number] AGE: 84 Location: [facility] Re05/13/19 SEX: F Status: REG REF SPEC: [id number] YARITZA: 05/13/[address]: Jennifer WATKINS REQ: [id number] RECD: 05/13/19 STATUS: RES _ SOURCE: STOOL SPDESC: ORDERED: Occult Bl, Diag, Stool Culture Procedure Result Reported Site Stool Culture PENDING Stool Specimen Description Final 05/13/192005 ML Stool Color Brown Stool Form Formed Stool Consistency Firm Shiga Toxin 1 2 PENDING Stool Occult Blood (1) PENDING * ML - Main Lab . END OF REPORT DEPARTMENT OF PATHOLOGY, [address] [place] [id number] Brown Loo M.D. Director [facility] # [id number] 2 SEE RESULT BELOW Name: JOHNNA LINDO : [address]: Jennifer WATKINS Acct: [id number] Unit: [id number] AGE: 84 Location: [facility] Re05/13/19 SEX: F Status: REG REF SPEC: [id number] YARITZA: 05/13/[address]: Jennifer WATKINS REQ: [id number] RECD: 05/13/19 STATUS: COMP _ SOURCE: STOOL SPDESC: ORDERED: Occult Bl, Diag, Stool Culture COMMENTS: Verbal to DEMARCUS PECK CDIFF FORMED STOOL by [id number] at 0823 on 05/14/19. Procedure Result Reported Site Stool Culture Final 05/15/19- 1211 ML Result No enteric pathogens isolated Testing [...] sensitivities are required. Stool Specimen Description Final 05/13/19- 2005 ML Stool Color Brown Stool Form Formed Stool Consistency Firm Shiga Toxin 1 2 Final 05/14/19- 1456 ML Organism 1 Negative Shiga Toxin 1 2 CONTINUED ON NEXT PAGE DEPARTMENT OF PATHOLOGY, [address] [place] [address] Brown Loo M.D. Director [facility] # [id number] Patient: LINDOTARUN [id number] (Continued) Specimen: [id number] Collected: 05/13/19 Received: 05/13/19 (Continued) Procedure Result Reported Site Shiga Toxin 1 2 Final (continued) 05/14/19- 1456 Immunochromatographic Assay Stool Occult Blood (1) Final 05/13/19- 2018 ML Stool Occult Blood Positive Collection Date (1) 05/13/19 * ML - Main Lab . END OF REPORT DEPARTMENT OF PATHOLOGY, [address] [place] [address] Brown Loo M.D. Director [facility] # [id number] Procedures Description No Information Available Medical Devices Description No Information Available Encounters Description No Information Available Assessments Date Code Description Provider 05/12/2019 R10.30 Lower abdominal pain, unspecified ROLAND Dove 05/12/2019 R19.4 Change in bowel habit Jennifer Kiser PA-C 05/12/2019 K92.1 Melena Jennifer Kiser PA-C 05/12/2019 R93.3 Abnormal findings on diagnostic imaging Jennifer Kiser PA-C of other parts of digestive tract Plan of Treatment No Information Available Functional Status Description No Information Available Mental Status Description No Information Available Referrals Description No Information Available
--- NOTE | 2019-05-25 10:15 | ED ---
GI/ HPI - HPI Summary HPI Summary: Patient is a 84 y/o F presenting to [facility] via EMS with complaints of diarrhea for the past month and low blood pressure at home this am. BP was not hypotensive per EMS and BP is slightly elevated on triage in the ED. Daughter, Mariama, who lives with the patient, had made the patient come in today, 05/25/19 , for evaluation. Patient states that food will "go right through me". Patient reports that she has had blood in her stool previously, and colonoscopy is scheduled soon. Patient is being followed by GI at [facility]. Daughter is concerned that pt will be too weak to go through the colonoscopy prep. Pt has hx C diff. She denies abdominal pain at present and states that she did not eat this morning. However, she notes that she will get abdominal pain after eating food and with her diarrhea. Stool is characterized as brown, watery, and with small bits of blood. Daughter notes that the patient has had progressively worsening generalized weakness. It is noted that the patient has lost around 6 lbs in the past month due to decreased appetite and diarrhea. Patient has been gaseous as well. No fever, vomiting, CP, SOB, MCKEON, dizziness at present reported. However, daughter notes that the patient had complaints of MCKEON a few days ago when going to sleep. Daughter states that the patient also had an episode of SOB and dizziness while ambulating within the past few days that required usage of her rescue inhaler. Patient had been evaluated in ED on 05/04, ABD/PEL CT was done this day. She was evaluated on 05/12 by GI. No hx C diff is reported (although RN states this in his initial note about pt). Patient has not been on any antibiotics recently, since October 2018 when she was on cephalexin for UTI. Pt has not been in contact with anyone with similar Sx. 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 PSHx of femur repair noted, sigmoid colectomy. Father had throat cancer, brother had bone cancer. She denies alcohol, tobacco, or substance usage. Vitals in room are 93 pulse, o2 94, BP 149/77. Home medications and allergies are reviewed. She is on Valsartan 80 mg BID, HCTZ 25 mg daily, Ellipta, and rescue inhaler. Patient only took Ellipta today. Daughter obtained the following vitals from patient at home: 05/24 1030 (106/60 BP) 05/24 1600, (128/59 BP, 94 pulse), 05/24 1800 (107/53 BP, 99 pulse), 05/24 1900 (118/58 BP), 0830 05/25 (99/53 BP, 122/65 BP, 91 pulse). - History of Current Complaint Stated Complaint: LOW BLOOD PRESSURE Hx Obtained From: Patient, Family/Psychologist Private Practice - daughter Onset/Duration: Started Weeks Ago - a month ago, Still Present Timing: Lasting Weeks - a month ago Severity: Severe - severity of diarrhea, minimal pain Current Severity: None - pain denied Associated Signs and Symptoms: Positive: Dizziness - one episode, none at present, Blood w/Stool, Diarrhea, Change in Appetite - decreased, Abdominal Pain - when eating and with diarrhea, Other: - positive - generalized weakness, weight loss, episode of SOB with none present currently, gaseous. Negative: Vomiting, Fever, Chest Pain Aggravating Factor(s): Food, Bowel Movement Alleviating Factor(s): Nothing - Allergy/Home Medications Allergies/Adverse Reactions: Allergies Allergy/AdvReac Type Severity Reaction Status Date / Time Sulfa (Sulfonamide Allergy See Comment Verified 05/04/19 07:40 Antibiotics) Home Medications: Home Medications Magnesium Oxide TAB* [MagOx 400 TAB*] 400 mg PO DAILY 05/25/19 [History Confirmed 05/25/19] Umeclidinium 62.5 MDI(NF) [Incruse ELLIPTA MDI (NF)] 62.5 mcg INH DAILY [History Confirmed 05/25/19] Valsartan TAB* [Diovan TAB*] 160 mg PO DAILY 05/25/19 [History Confirmed ] PMH/Surg Hx/FS Hx/Imm Hx Previously Healthy: No Endocrine/Hematology History: Denies: Hx Diabetes Cardiovascular History: Reports: Hx Hypertension Denies: Hx Pacemaker/ICD Respiratory History: Reports: Hx Chronic Obstructive Pulmonary Disease (COPD) GI History: Reports: Hx Diverticulosis, Hx Gastrointestinal Bleed - guaiac positive stool , Other GI Disorders - colitis Musculoskeletal History: Reports: Hx Orthopedic Injury - "shattered femur" and repair Sensory History: Reports: Hx Contacts or Glasses, Hx Hearing Problem Denies: Hx Hearing Aid Opthamlomology History: Reports: Hx Contacts or Glasses Neurological History: Reports: Hx Dementia Psychiatric History: Denies: Hx Panic Disorder - Surgical History Surgical History: Yes Surgery Procedure, Year, and Place: RIGHT HIP. CATARACTS. RT LEG SURGERY WITH JOSE ROBERTO AND 7 SCREWS. sigmoid colectomy 2018 [facility]. appendectomy Infectious Disease History: No - Family History Known Family History: Positive: Other - throat cancer father, bone cancer brother Negative: Cardiac Disease, Diabetes - Social History Lives: With Family - daughter Alcohol Use: None Hx Substance Use: No Substance Use Type: Reports: None Hx Tobacco Use: Yes Smoking Status (MU): Former Smoker Review of Systems Constitutional: Other - positive - weight loss Positive: Fatigue - generalized weakness . Negative: Fever Negative: Chest Pain Positive: Shortness Of Breath - one episode within past few days, none at present Gastrointestinal: Other - positive - decreased appetite, gaseous Positive: Abdominal Pain - with diarrhea and food , Diarrhea. Negative: Vomiting Genitourinary: Negative - no urinary symptoms , Other - positive - blood in stool Skin: Negative Neurological: Other - positive - dizziness, one episode within past few days, none at present Positive: Headache - one episode within past few days, none at present Psychological: Normal All Other Systems Reviewed And Are Negative: Yes Physical Exam - Summary Physical Exam Summary: Appearance: Ill-appearing, no pain distress, well-nourished Skin: Warm, color reflects adequate perfusion, dry Head: Normal Head/Face inspection, atraumatic Eyes: Conjunctiva clear ENT: Normal inspection Neck: Supple, no nodes, no JVD Respiratory: Lungs clear, normal breath sounds, no respiratory distress Cardio: RRR, No murmur, pulses normal, brisk capillary refill Abdomen: Soft, nontender, no masses, nondistended Rectal Exam: Patient has green-brown stool that is soft, sample was obtained. No masses palpated. Nurse Willy chaperoned exam. Bowel sounds: Present Musculoskeletal: Strength Intact/ROM intact, no calf tenderness, no edema. Psychological: Normal Neuro: Alert, muscle tone normal, no focal deficit Triage Information Reviewed: Yes Vital Signs On Initial Exam: Initial Vitals Temp Pulse Resp BP Pulse Ox 98.7 F 98 16 158/80 90 05/25/19 10:02 05/25/19 10:02 05/25/19 10:02 05/25/19 10:02 05/25/19 10:02 Vital Signs Reviewed: Yes Procedures - Sedation Patient Received Moderate/Deep Sedation with Procedure: No Diagnostics - Laboratory Result Diagrams: 05/30/19 12:26 05/30/19 12:26 Lab Statement: Any lab studies that have been ordered have been reviewed, and results considered in the medical decision making process. Re-Evaluation - Re-Evaluation First Eval Re-Evaluation Time: 12:02 Change: Unchanged Comment: 1202 potassium 2.6 per charge nurse Kylah. Will begin replacement IV. Second Eval Re-Evaluation Time: 12:23 Change: Improved Comment: Patient had a bowel movement. She denies pain at present. Daughter remains in the room. Stool is observed to be in "loose chunks" with no observed blood. Third Eval Re-Evaluation Time: 13:04 Change: Unchanged Comment: Skylar from lab ([id number]) was contacted with regards to stool sample report; stool sample results to be changed to accurately reflect positive stool occult sample. GIGU Course/Dx - Course Course Of Treatment: Patient is a 84 y/o F presenting to [facility] via EMS with complaints of diarrhea for the past month. Daughter, Mariama, who lives with the patient, had made the patient come in today, 05/25/19, for evaluation due to hypotension at home. Pt was not hypotensive for EMS or at ED triage. Patient states that food will "go right through me". Patient reports that she has had blood in her stool previously, for which repeat colonoscopy has been scheduled. Patient is being followed by GI at [facility] and colonoscopy is upcoming. Daughter is concerned that pt will be too weak to undergo the colonoscopy prep at home. Pt denies abdominal pain at present and states that she did not eat this morning. However, she notes that she will get abdominal pain after eating food and with her diarrhea. Stool is characterized as brown, watery, and with small bits of blood. Daughter notes that the patient has had progressively worsening generalized weakness. It is noted that the patient has lost around 6 lbs in the past month due to decreased appetite and diarrhea. Abdomen is soft, nontender, nondistended and no masses. Rectal Exam: Patient has green-brown stool that is soft, sample was obtained. No masses palpated. Nurse Aguilera chaperoned exam. Dr. Javier's consult from 05/04/[address] Javier noted that the patient had partial colon resction done in 2007 in [facility]. In 2018 , patient had come to ED with rectal bleed and was transferred to [facility]. Per Yaya's consult note in the ED today, at [facility] pt had " clipping of a bleeding diverticulum under direct vision" and the right colon was not well visualized. Per Dr. Javier communication by phone ischemic colitis is possible at this time and that pt does not need antibiotics at this time. He advises to keep pt NPO for unprepped colonoscopy today. Bloodwork was obtained. Abnormal values include Hgb 11, Hct 32, MPV 7.1, absolute lymphs 0.7, absolute monos 1.1, INR 1.39, potassium 2.6, chloride 99, glucose 104, calcium 8.1, magnesium 1.7, CRP 197.94, BNP 279, total protein 6.3, albumin 3, albumin/ globulin 0.9, amylase 12, lipase < 10. Hemoglobin has decreased from 13.6 to 11 since 05/04/19. Lactate is 0.8. Stool occult blood test was positive. During ED course, patient was given magnesium sulfate 1gm IV, NS IV, potassium chloride 10 meq IV. 1236 - Patient's case was discussed with Dr. Javier, he will consult on case. 1254 Patient's case was discussed with Dr. Epstein, Dr. Epstein accepts for admission. Pt and daughter agree with admission. - Diagnoses Differential Diagnoses - Female: Colitis, Diverticulitis, Neoplasm Provider Diagnoses: Diarrhea, Hypokalemia, Hypomagnesemia, Stool guaiac positive - Physician Notifications Discussed Care Of Patient With: Solitario Javier Time Discussed With Above Provider: 12:36 Instructed by Provider To: Other - 1236 - Patient's case was discussed with Dr. Javier, he will consult on case. 1254 - Patient's case was discussed with Dr. Epstein, and Dr. Epstein accepts for admission. Discharge ED - Sign-Out/Discharge Documenting (check all that apply): Patient Departure - admit - Discharge Plan Condition: Stable Disposition: ADMITTED TO [facility] - Billing Disposition and Condition Condition: STABLE Disposition: Admitted to [facility] - Attestation Statements Document Initiated by Scribe: Yes Documenting Scribe: SHANNON SOTO Provider For Whom Scribe is Documenting (Include Credential): CHASE MONCADA MD Scribe Attestation: SHANNON Stone, scribed for CHASE MONCADA MD on 06/11/19 at 1621. Scribe Documentation Reviewed: Yes Provider Attestation: The documentation as recorded by the scribSHANNON brice accurately reflects the service I personally performed and the decisions made by me, CHASE MONCADA MD Status of Scribe Document: Viewed
[2019-05-25] MEDS ORDERED: NS 0.9% 1000 ML** 1,000 ML IV SCH (10:45)
[2019-05-25 11:03] LABS: ABS Basophils 0.1 10^3/ul (0-0.2); ABS Lymphocytes 0.7 10^3/ul (1.0-4.8); ABS Monocytes 1.1 10^3/ul (0-0.8); ABS Neutrophils 5.9 10^3/ul (1.5-7.7); Eosinophil % 0.5 %; Hematocrit 32 % (35-47); Lymphocyte % 8.9 %; Mean Corpuscular HGB Conc 35 g/dL (31-36); Mean Corpuscular Hemoglobin 29 pg (27-31); Mean Corpuscular Volume 84 fL (80-97); Mean Platelet Volume 7.1 fL (7.4-10.4); Platelet Count 404 10^3/uL (150-450); Red Blood Count 3.77 10^6 /uL (3.70-4.87); Red Cell Distribution Width 13 % (10-15); White Blood Count 7.9 10^3/uL (3.5-10.8)
[2019-05-25 11:17] LABS: INR 1.39 (0.82-1.09)
[2019-05-25 11:25] LABS: Troponin I 0.03 ng/mL (<0.04)
[2019-05-25 11:29] LABS: ALT 12 U/L (7-52); AST 16 U/L (13-39); Albumin/Globulin Ratio 0.9 (1-3); Alkaline Phosphatase 67 U/L (34-104); Amylase 12 U/L (29-103); BUN/Creatinine Ratio 17.9 (8-20); Blood Urea Nitrogen 12 mg/dL (6-24); C Reactive Protein 197.94 mg/L (<8.01); CO2 Carbon Dioxide 28 mmol/L (22-32); Calcium 8.1 mg/dL (8.6-10.3); Chloride 99 mmol/L (101-111); EGFR Non-African American 84.3 (>60); Globulin 3.3 g/dL (2-4); Glucose 104 mg/dL (70-100); Magnesium 1.7 mg/dL (1.9-2.7); Sodium 136 mmol/L (135-145); Total Protein 6.3 g/dL (6.4-8.9)
[2019-05-25 11:36] LABS: Anion Gap 9 mmol/L (2-11); Potassium 2.6 mmol/L (3.5-5.0)
[2019-05-25] MEDS ORDERED: Magnesium Sulfate 1 GM IV* 1 GM/100 ML BAG IV ONE (12:15)
[2019-05-25] MEDS ORDERED: Iohexol 300* (CONTRAST) 10 ML SDV IV ONE (12:56)
[2019-05-25] MEDS: KCL 10 MEQ/50 ML IVPREMIX* 10 MEQ/50 ML BAG IV SCH ×2 (13:31→21:40)
[2019-05-25] MEDS: NS 0.9% 1000 ML** 1,000 ML IV SCH (15:37)
[2019-05-25] MEDS: Albuterol HFA INHALER* 8 gm MDI INH PRN ×2 (16:20→21:41)
[2019-05-25] MEDS ORDERED: fentaNYL* 50 MCG/ML 2 ML VIAL (100 MCG VIAL) ONE (16:42)
[2019-05-25] MEDS ORDERED: Midazolam* 1 MG/ML 10 ML VIAL (10 MG) ONE (16:42)
[2019-05-25] MEDS: Heparin VIAL(*) 5000 UNITS/ML VIAL (FIVE THOUSAND) SUBCUT SCH ×3 (16:44→21:39)
--- NOTE | 2019-05-25 17:18 | HP ---
CC: Dr. Gil * HISTORY AND PHYSICAL: DATE OF ADMISSION: 05/25/19 PRIMARY CARE PROVIDER: Dr. Gil. CHIEF COMPLIANT: Diarrhea. HISTORY OF PRESENT ILLNESS: Ms. Lindo is an 84-year-old female who states that for the last 1 month she has had persistent diarrhea. She notes that the frequency is becoming more often. She states that this week she has been going anywhere between 5 to 10 times per day. Sometimes it is mushy stool, other times it is pure watery liquid. She did see a gastroenterology PA at the end of April and at that time she was referred to the emergency room. During that evaluation, she had a normal white blood cell count. Her hemoglobin was normal. Her potassium was slightly low and her CRP was mildly elevated at 36.59. She underwent CT of the abdomen and pelvis at that time which revealed diffuse mucosal thickening of the distal colon. The patient followed up with Dr. Javier on 05/12/19. At that time, it was recommended that she have colonoscopy. The colonoscopy has been arranged for 06/23/19. The patient has continued to have such severe diarrhea that she has lost 6 pounds since . She has had increased weakness. She is not eating very much as every time she takes anything in by mouth she states it goes right through her. She has not had any fevers at home. The patient and her family are concerned about waiting until 06/23/19 for her colonoscopy as she has become weaker and they believe she is getting malnourished. PAST MEDICAL HISTORY: 1. Hypertension. 2. COPD. 3. Vascular dementia. PAST SURGICAL HISTORY: 1. Partial colectomy for diverticulitis. 2. Tonsillectomy. 3. Appendectomy. 4. Back surgery. 5. Right total hip arthroplasty. ALLERGIES: Allergy to SULFA medication. MEDICATIONS: 1. Aspirin 81 mg p.o. daily. 2. Hydrochlorothiazide 12.5 mg p.o. daily. 3. Valsartan 160 mg p.o. daily. 4. Incruse Ellipta 1 puff inhaled daily. 5. Probiotic 1 cap p.o. daily. 6. Multivitamin 1 tab p.o. daily. 7. Magnesium oxide 400 mg p.o. daily. FAMILY HISTORY: Dad had lung cancer. Brother had prostate cancer. Family history is negative for CAD. SOCIAL HISTORY: The patient is a former smoker. She quit approximately 9 years ago. She has at least a 30-pack year history of smoking. She drinks alcohol on occasion. She is living with her daughter. Her daughter, Mariama, is her healthcare proxy. REVIEW OF SYSTEMS: A complete 11-system review of systems is obtained, pertinent positives and negatives are as per HPI. In addition, the patient does complain of mild abdominal discomfort mostly on the left side. She does not have any significant nausea. She has no chest pain and no shortness of breath. PHYSICAL EXAMINATION GENERAL: The patient is a well-developed elderly female, seem sitting up in the stretcher in no acute distress. VITAL SIGNS: Blood pressure 154/70, pulse 81, respirations 16, temp 98.4, O2 sat 95% on room air. HEENT: Pupils are round and equal. Oropharynx is clear. Oral mucosa is moist. There is no submandibular, cervical, or supraclavicular adenopathy. LUNGS: Clear to auscultation bilaterally. CARDIAC: Normal S1 and S2. Regular rate and rhythm. I do not appreciate any murmur. There is no lower extremity edema. ABDOMEN: Bowel sounds are present. Abdomen is soft, nondistended. She is mildly tender to palpation in the left upper and lower quadrants. MUSCULOSKELETAL: There is no cyanosis, clubbing of digits. She has full active range of motion of all 4 extremities. SKIN: Visible areas of skin are warm and dry and are without rash. NEUROLOGIC: Cranial nerves II to XII are grossly intact. Sensation is intact to light touch throughout. Strength is normal throughout. The patient is able to get herself off the stretcher onto the commode and back off the commode and onto the stretcher without any assistance. PSYCH: The patient is alert. She is oriented x3. Affect appears appropriate. DIAGNOSTIC STUDIES/LAB DATA: WBC 7.9, hemoglobin 11.0, hematocrit 32, platelets 404. INR 1.39. Sodium 136, potassium 2.6, chloride 99, CO2 of 28. BUN 12, creatinine 0.67, glucose 104, lactic acid 0.8, calcium 8.1, magnesium 1.7, bilirubin 0.6. AST 16, ALT 12, alk phos 67. Troponin 0.03. CRP 197.94. Albumin 3.0, amylase 12, lipase less than 10. CT abdomen and pelvis, diffuse colonic thickening throughout the colon remnant suspicious for colitis. There is also cholelithiasis and biliary duct dilatation. ASSESSMENT AND PLAN: Ms. Lindo is an 84-year-old female who has had diarrhea for approximately 1 month without any fevers, chills, or significant hematochezia, who presents to the emergency room because of the persistent diarrhea. She is being admitted for colitis. 1. Colitis. At this point, it appears the entire colon is inflamed. I will admit her and place her on Zosyn, though I think an infectious colitis seems very unlikely at this time. GI consultation with Dr. Javier has been requested. She will have IV fluid hydration with normal saline at 100 mL per hour. The patient's H and H is slightly lower now than it was on 05/05/19. Her stool is heme positive. I will get a followup CBC tomorrow to evaluate for worsened anemia. 2. Hypokalemia, likely secondary to significant diarrhea. She is receiving 20 mEq of IV potassium and then will give potassium chloride 40 mEq p.o. x2 doses. This is going to be given in liquid form as I suspect the pills will pass right through her without being observed. 3. Hypertension. The patient's blood pressure is mildly elevated. She will continue on her valsartan, though I am going to hold her for hydrochlorothiazide. 4. Chronic obstructive pulmonary disease. There are no signs of exacerbation at this time. Continue Incruse Ellipta 1 puff inhaled daily. 5. DVT prophylaxis. According to the Adult Thrombosis Prophylaxis Risk Factor Assessment Guide, the patient has a total risk factor score of 3 making her high risk. Heparin 5000 units subcutaneous q.8 hours will be utilized for DVT prophylaxis as there is no gross hematochezia. 6. Code status is DNR. TIME SPENT: Sixty-five minutes was spent admitting this patient. [id number]/[facility] #: [id number] MAR
[2019-05-25] MEDS ORDERED: methylPREDNISolone SOD 40 MG* 1 ML VIAL IV ONE (17:27)
--- NOTE | 2019-05-25 17:43 | CONS ---
GASTROENTEROLOGY CONSULT: DATE: 05/25/19 CONSULTING PHYSICIAN: Dr. Lily Epstein. REASON FOR CONSULT: Diarrhea and crampy abdominal distress with thickening of the colon on CT scan and elevation of CRP to 197 with metabolic deterioration noting potassium 2.6, albumin 3.0, and hemoglobin 11, which had 3 weeks ago been 3.4, 4.1 and 13.6 respectively. HISTORY: This 84-year-old woman has been having diarrhea. She says she cannot keep anything in her system as it passes right through. There has been no vomiting. Over the last few days, she has been getting weaker. She has had complaints of loose stools intermittently for several years and had bowel cultures done in 2016 and 2017 with C. diff negative then. Stool has at times been lactoferrin positive and heme-positive. She came to the emergency room 3 weeks ago and her evaluation was delayed 24 hours because of emergency room crowding. At that time, she was seen, she said that her stool was improving and she was feeling better and her CBC was normal and stool heme- negative and she was discharged for outpatient assessment. She did bring a stool specimen in on 05/13/19 and it was heme-positive. Enteric pathogen culture was negative. The lab reported the stool as formed and firm and therefore did not do C. diff analysis. The patient denied recent antibiotic use and her daughter tends to confirm it. She did have ceftriaxone back in October when she had a urinary infection. They do not recall any other antibiotics. She had resection of diverticulosis in the sigmoid in 2007 at [facility]. In October 2017 with GI bleeding, she was sent [facility] and had clipping of a bleeding diverticulum. This was done under direct vision. The right colon had much stool and was not seen. PAST MEDICAL HISTORY: 1. Vascular dementia - diagnosed by her primary. 2. COPD - quit smoking in 2009, but still uses inhaler. 3. Status post appendectomy in 1994. 4. Status post sigmoid colectomy at [facility] in 2007. 5. Recurring diarrhea - see above. 6. Hip fracture - July 2011. 7. Hypertension. 8. Urosepsis - October 2018 admission. MEDICATIONS: As an outpatient are unchanged from 3 weeks ago. FAMILY HISTORY: Her father had lung cancer. Mother lived to old age. Her daughter has had a cerebral aneurysm clipped. SOCIAL HISTORY: She moved to the [facility] recently. 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 REVIEW OF SYSTEMS: No recent history of fever, vomiting, cough, headache, visible blood in the stool, TN, syncope, fall or fracture in the last several years. EXAM: She is a slender, somewhat frail-appearing elderly woman, in no overt distress. She is afebrile. She is anicteric. Mucous membranes are well hydrated. She has no adenopathy. Lungs show diminished breath sounds symmetrically. Heart sounds are regular. Breast and Pelvic Exams: Deferred. The abdomen is mildly rounded with normal bowel sounds, soft, but with deep tenderness. Rectal: decreased tone and mucoid exudative liquid Extremities show no edema or erythema or joint effusions. Neurologic is nonfocal, quite alert, oriented and expressing appreciation for her daughter's care. CT review - thickening of the colon favoring proximal areas and sparing the rectum. In retrospect, it may have been subtly seen 3 weeks ago. IMPRESSION: This 84 year old woman has had mild intermittent diarrhea for several years without any systemic toxicity though now presents acutely ill. Appearance of diffuse colitis on CT is now clear. The cause unclear as antibiotic history suggesting C Diff is absent and bloody passage is unusual for that. Unprepped sigmoidoscopy is clearly indicated with collection of specimens. [id number]/[facility] #: [id number] [facility]
[2019-05-25] MEDS: Potassium Chloride* LIQUID 20 MEQ/15 ML UDC PO SCH (21:40)
--- NOTE | 2019-05-25 22:36 | PRO ---
DATE: 05/25/19 - ROOM #403 REFERRING PHYSICIANS: Dr. Rupert Gil and Dr. Lily Epstein. * PROCEDURE: Colonoscopy to hepatic flexure. INDICATION: Diarrhea persistently 6 to 10 times a day without any fever. Stool culture was negative 12 days ago with stool positive for lactoferrin and blood. The lab report states there was formed stool and C. diff analysis was not done. Informed consent was obtained from the patient and preprocedure conversation was held with the patient's daughter. CT scan shows significant colon thickening throughout slightly sparing the rectum. ENDOSCOPIST: Dr. Javier. MEDICATIONS: Midazolam 2, fentanyl 25. FINDINGS: She is an elderly woman with mild abdominal rounding or distention. Bowel sounds are normal. Rectal is patulous with mucopus and some blood staining. Initial view does show edematous, erythematous, and granular mucosa in the rectum with a splattered exudate in a somewhat polka dot pattern. The appearance is consistent with ulcerative colitis and not Crohn's or C. diff. The findings are continuous down to the anal verge. The findings become more severe going into the sigmoid, descending and then transverse. The hepatic flexure was a limited exam at which point a flexure was encountered. On slow withdrawal, aspirate was sent for amoeba and C. diff. Biopsies were taken from the sigmoid. IMPRESSION: 1. Diverticulosis - in the sigmoid. 2. Pancolitis - visually consistent with ulcerative colitis and intravenous prednisone is suggested. 3. There is no indication now for antibiotics. Addendum: inactive chronic colitis [id number]/[facility] #: [id number] MTDD
[2019-05-26] MEDS ORDERED: methylPREDNISolone SOD 40 MG* 1 ML VIAL IV SCH (02:00)
[2019-05-26] MEDS: Potassium Chloride* LIQUID 20 MEQ/15 ML UDC PO SCH (02:19)
[2019-05-26] MEDS: NS 0.9% 1000 ML** 1,000 ML IV SCH (05:30)
[2019-05-26] MEDS: methylPREDNISolone SOD 40 MG* 1 ML VIAL IV SCH ×3 (05:30→21:24)
[2019-05-26] MEDS: Heparin VIAL(*) 5000 UNITS/ML VIAL (FIVE THOUSAND) SUBCUT SCH ×3 (05:31→21:28)
[2019-05-26 06:19] LABS: ABS Lymphocytes 0.4 10^3/ul (1.0-4.8); ABS Monocytes 0.2 10^3/ul (0-0.8); ABS Neutrophils 5.3 10^3/ul (1.5-7.7); Hematocrit 30 % (35-47); Hemoglobin 10.3 g/dL (12.0-16.0); Lymphocyte % 6.1 %; Mean Corpuscular HGB Conc 34 g/dL (31-36); Mean Corpuscular Hemoglobin 29 pg (27-31); Mean Corpuscular Volume 84 fL (80-97); Mean Platelet Volume 7.4 fL (7.4-10.4); Platelet Count 350 10^3/uL (150-450); Red Blood Count 3.55 10^6 /uL (3.70-4.87); Red Cell Distribution Width 13 % (10-15); White Blood Count 5.8 10^3/uL (3.5-10.8)
[2019-05-26 06:33] LABS: BUN/Creatinine Ratio 16.9 (8-20); Calcium 7.5 mg/dL (8.6-10.3); EGFR African American 118.1 (>60); EGFR Non-African American 97.6 (>60); Potassium 3.7 mmol/L (3.5-5.0)
--- NOTE | 2019-05-26 07:50 | PN ---
Subjective Date of Service: 05/26/19 Interval History: Pt continued to have frequent diarrhea overnight. She continues to have mild abdominal discomfort. She did not remember Dr. Javier telling her that she likely has ulcerative colitis. Objective Active Medications: Albuterol (Ventolin Hfa Inhaler*) 2 puff INH Q4H PRN PRN Reason: SOB/WHEEZING Last Admin: 05/25/19 21:41 Dose: 2 puff Aspirin (Aspirin 81 Mg Chew Tab*) 81 mg PO DAILY [facility] Heparin Sodium (Porcine) (Heparin Vial(*)) 5,000 units SUBCUT Q8HR [facility] Last Admin: 05/26/19 05:31 Dose: 5,000 units Sodium Chloride (Ns 0.9% 1000 Ml) 1,000 mls @ 100 mls/hr IV PER RATE [facility] Stop: 05/26/19 23:59 Last Admin: 05/26/19 05:30 Dose: 100 mls/hr Methylprednisolone Sodium Succinate (Solu-Medrol 40 Mg) 20 mg IV Q8H [facility] Last Admin: 05/26/19 05:30 Dose: 20 mg Multivitamins/Minerals (Theragran/Minerals Tab*) 1 tab PO DAILY [facility] Nft: L.Acidoph, Paracasei, B.Lactis [Probiotic] 1 Each 1 each PO DAILY [facility] Umeclidinium [place] (Incruse Ellipta Mdi (Nf)) 1 inh INH DAILY [facility] Valsartan (Diovan Tab*) 160 mg PO DAILY [facility] Vital Signs - 8 hr 05/26/19 05/26/19 00:03 03:35 Temperature 97.5 F 97.8 F Pulse Rate 92 86 Respiratory 18 18 Rate Blood Pressure 119/45 117/56 (mmHg) O2 Sat by Pulse 91 94 Oximetry Oxygen Devices in Use Now: None Appearance: Elderly female lying in bed sleeping, awakens to voice, NAD Eyes: No Scleral Icterus Ears/Nose/Mouth/Throat: Mucous Membranes Moist Respiratory: Symmetrical Chest Expansion and Respiratory Effort Cardiovascular: NL Sounds; No Murmurs; No JVD, RRR, No Edema Abdominal: - - BS+ soft, ND, mildly tender to light palpation throughout Extremities: No Clubbing, Cyanosis Skin: No Nodules or Sclerosis Neurological: - - slightly confused Result Diagrams: 05/26/19 04:52 05/26/19 04:52 Microbiology and Other Data: Microbiology 05/25/19 17:20 Stool Gross Appearance - Final Stool C. difficile DNA Amplification - Final 027 Presumptive NEGATIVE Toxigenic C.diff NEGATIVE 05/25/19 12:25 Stool Gross Appearance - Final Stool Stool Lactoferrin - Final 05/25/19 10:10 Stool Occult Blood (CLAUDIA) - Final Stool Assess/Plan/Problems-Billing Ms Lindo is an 84 yo F who has a h/o COPD, HTN and vascular dementia who presented to the ER with c/o 1 month of diarrhea that was getting progressively worse with associated weakness. - Patient Problems (1) Ulcerative colitis Current Visit: Yes Status: Acute Code(s): K51.90 - ULCERATIVE COLITIS, UNSPECIFIED, WITHOUT COMPLICATIONS SNOMED Code(s): 15700256 Comment: Pt underwent unprepped colonoscopy with Dr. Javier last evening. He found pancolitis c/w ulcerative colitis. She was started on solumedrol 40mg IV x1 then 20mg q8hr. Will monitor for improvement in diarrhea and ability to eat. The patient had significant hypokalemia yesterday- now resolved. Will repeat BMP tomorrow to ensure her K stays in appropriate range. Will also follow CRP. (2) HTN (hypertension) Current Visit: Yes Status: Acute Code(s): I10 - ESSENTIAL (PRIMARY) HYPERTENSION SNOMED Code(s): 92554598 Comment: BP is under good control on valsartan alone- holding HCTZ while pt with profuse diarrhea. (3) COPD (chronic obstructive pulmonary disease) Current Visit: Yes Status: Acute Code(s): J44.9 - CHRONIC OBSTRUCTIVE PULMONARY DISEASE, UNSPECIFIED SNOMED Code(s): 64166890 Comment: No signs of exacerbation. Continue prn albuterol and incruse ellipta. (4) Dementia Current Visit: Yes Status: Acute Code(s): F03.90 - UNSPECIFIED DEMENTIA WITHOUT BEHAVIORAL DISTURBANCE SNOMED Code(s): 70836582 Comment: Provide supportive care. (5) DVT prophylaxis Current Visit: Yes Status: Acute Code(s): Z29.9 - ENCOUNTER FOR PROPHYLACTIC MEASURES, UNSPECIFIED SNOMED Code(s): 483703457 Comment: SQ heparin (6) DNR (do not resuscitate) Current Visit: Yes Status: Acute
[2019-05-26] MEDS: PTO:Umeclidinium 62.5 MDI(NF) MDI INH SCH (08:09)
[2019-05-26] MEDS ORDERED: Valsartan TAB* 160 MG PO SCH (09:00)
[2019-05-26] MEDS: Multivitamins/Minerals TAB PO SCH (10:11)
[2019-05-26] MEDS: Aspirin 81 mg CHEW TAB* 81 MG TAB.CHEW PO SCH (10:11)
[2019-05-26] MEDS: ACIDOPH PARACASEI B LACTIS PO SCH (10:33)
[2019-05-26] MEDS ORDERED: Morphine INJ* 2 MG/ML 1 ML SYRINGE (TWO MG - NEW SYRINGE VERSION) IV PRN (15:14)
[2019-05-26] MEDS: Albuterol HFA INHALER* 8 gm MDI INH PRN (15:40)
--- NOTE | 2019-05-26 18:30 | PN ---
Progress Note - Progress Note Date of Service: 05/26/19 Note: GASTROENTEROLOGY FOLLOW-UP NOTE IE/S: - Colonoscopy to hepatic flexure yesterday demonstrated moderate to severe colitis w/ exudate concerning for ulcerative colitis. Infectious studies have been negative. Path from colon biopsies reports only mild inactive chronic colitis. - Patient reports ongoing diarrhea and abdominal pain without significant change. Pain seems to improve in the afternoon as she has only mild dull discomfort at time of interview at 5 pm. Episode of vomiting earlier in the day. O: VSS- AF, not tachycardic, normotensive GEN: Elderly woman. NAD. HEENT: MMM CARDS: RRR PULM: Breathing comfortably ABD: +BS. Soft, non-distended, tender diffusely (lower > upper) Labs reviewed. WBC normal. Stable anemia. K normalized today. CRP 197.9 yesterday. MICRO: Parasite stool study pending. C diff negative. PATH from colon biopsies: "Mild inactive chronic colitis." A/P: 84yF w/ vascular dementia, COPD, HTN, and chronic diarrhea, who is admitted w/ diarrhea, abdominal pain, and metabolic derangements. Flexible sigmoidoscopy to hepatic flexure demonstrated moderate to severe colitis w/ exudate. Distribution and appearance suggestive of ulcerative colitis. Biopsies from colon are rather surprisingly reported as only mild inactive chronic colitis. This pathology read differs from the endoscopic appearance of the colon, which appears quite acutely inflamed. Infectious studies so far have been negative making infectious mimic of UC less likely. Patient has yet to have any symptomatic improvement on Solumedrol, although it has been less than 24 hours. - Continue CBC, CMP, CRP daily - Monitor bowel movement frequency - Minimize narcotic use for pain as this can prevent identification of acute clinical change in exam (and has been associated with worse outcomes in IBD patients) - Order abdominal x-ray STAT if severe or worsening pain - Continue Solumedrol 20 mg TID (day 1) - Can request CMV staining on colon biopsies to rule-out CMV colitis - Await parasite stool exam - Continue IV fluids and full liquid diet. Consider lactose-free diet. Please notify GI if any acute clinical change. GI will continue to follow along. Alida Tello MD Gastroenterology
[2019-05-26] MEDS: Valsartan TAB* 160 MG PO SCH (21:24)
[2019-05-27] MEDS: Heparin VIAL(*) 5000 UNITS/ML VIAL (FIVE THOUSAND) SUBCUT SCH ×3 (05:44→21:04)
[2019-05-27] MEDS: methylPREDNISolone SOD 40 MG* 1 ML VIAL IV SCH ×3 (05:44→21:06)
[2019-05-27 05:45] LABS: Hematocrit 29 % (35-47); Mean Corpuscular HGB Conc 34 g/dL (31-36); Mean Corpuscular Hemoglobin 29 pg (27-31); Mean Corpuscular Volume 85 fL (80-97); Mean Platelet Volume 7.3 fL (7.4-10.4); Platelet Count 373 10^3/uL (150-450); Red Blood Count 3.48 10^6 /uL (3.70-4.87); Red Cell Distribution Width 13 % (10-15); White Blood Count 7.9 10^3/uL (3.5-10.8)
[2019-05-27 06:01] LABS: Calcium 7.6 mg/dL (8.6-10.3); Potassium 3.4 mmol/L (3.5-5.0)
[2019-05-27 06:07] LABS: BUN/Creatinine Ratio 21.2 (8-20); C Reactive Protein 139.36 mg/L (<8.01); EGFR African American 136.6 (>60); EGFR Non-African American 112.9 (>60)
[2019-05-27] MEDS: PTO:Umeclidinium 62.5 MDI(NF) MDI INH SCH (07:36)
[2019-05-27] MEDS: ACIDOPH PARACASEI B LACTIS PO SCH (09:11)
[2019-05-27] MEDS: Multivitamins/Minerals TAB PO SCH (09:12)
[2019-05-27] MEDS: Aspirin 81 mg CHEW TAB* 81 MG TAB.CHEW PO SCH (09:12)
[2019-05-27] MEDS ORDERED: Potassium Chloride* LIQUID 20 MEQ/15 ML UDC PO ONE (10:07)
--- NOTE | 2019-05-27 10:18 | PN ---
Subjective Date of Service: 05/27/19 Interval History: Pt is generally feeling better today. She has had 2 BMs since the middle of the night (less frequent) and her abdominal pain is improved. She wants to get up to walk. Objective Active Medications: Albuterol (Ventolin Hfa Inhaler*) 2 puff INH Q4H PRN PRN Reason: SOB/WHEEZING Last Admin: 05/26/19 15:40 Dose: 2 puff Aspirin (Aspirin 81 Mg Chew Tab*) 81 mg PO DAILY [facility] Last Admin: 05/27/19 09:12 Dose: 81 mg Heparin Sodium (Porcine) (Heparin Vial(*)) 5,000 units SUBCUT Q8HR [facility] Last Admin: 05/27/19 05:44 Dose: 5,000 units Methylprednisolone Sodium Succinate (Solu-Medrol 40 Mg) 20 mg IV Q8H [facility] Last Admin: 05/27/19 05:44 Dose: 20 mg Morphine Sulfate (Morphine Inj (Syringe))*) 2 mg IV Q4H PRN PRN Reason: PAIN - MILD Multivitamins/Minerals (Theragran/Minerals Tab*) 1 tab PO DAILY [facility] Last Admin: 05/27/19 09:12 Dose: 1 tab Nft: L.Acidoph, Paracasei, B.Lactis [Probiotic] 1 Each 1 each PO DAILY [facility] Last Admin: 05/27/19 09:11 Dose: Not Given Umeclidinium [place] (Incruse Ellipta Mdi (Nf)) 1 inh INH DAILY [facility] Last Admin: 05/27/19 07:36 Dose: 1 puff Valsartan (Diovan Tab*) 160 mg PO BEDTIME [facility] Last Admin: 05/26/19 21:24 Dose: 160 mg Vital Signs - 8 hr 05/27/19 04:18 Temperature 97.3 F Pulse Rate 83 Respiratory 19 Rate Blood Pressure 119/67 (mmHg) O2 Sat by Pulse 95 Oximetry Oxygen Devices in Use Now: None Appearance: Elderly female lying in bed, NAD Eyes: No Scleral Icterus Ears/Nose/Mouth/Throat: Mucous Membranes Moist Respiratory: Symmetrical Chest Expansion and Respiratory Effort, Clear to Auscultation Cardiovascular: NL Sounds; No Murmurs; No JVD, RRR, No Edema Abdominal: NL Sounds; No Tenderness; No Distention Extremities: No Clubbing, Cyanosis Skin: No Nodules or Sclerosis Neurological: Alert and Oriented x 3 - Nutrition: Malnutrition Diagnosis/Plan Malnutrition Assessment by Registered Dietitian: Malnutrition Assessment Clinical Characteristics Acute,Severe Malnutrition Assessment: Inadequate Oral Intake - Pt's daughter reports Criteria reduced intake on BRAT diet x2 wks; currently on clear liquid diet - anticipate meeting <50% nutrient needs >5 days (severe) Unintentional Weight Loss - She reports unintentional wt loss x2 wks; current wt 125lb, UBW 130lb x2 wks ago - 3.8% loss x2 wks (severe ) Malnutrition Assessment: Nutritional Supplementals/Nourishments - Will Interventions send Apple Ensure Clear (240kcal, 8g prot/serv) w/ B, L, and D daily to optimize kcal/prot; will monitor acceptance. GI Related - Recommend giving antidiarrheal PRN ; will monitor GI s/sx for impact on intake and ability to advance diet. Glycemic Control - Will continue to monitor BG/ FS in the setting of steroid med use. Education - Recommend advancing diet to low fiber as able; will f/u for nutrition education as indicated. Malnutrition Assessment: Goals 1) Recommend advancing diet to low fiber as able 2) Adequate po intake to support lean body mass and hydration status 3) Improve fluid/electrolyte balance w/ adequate po intake and repletion PRN 4) Improve glycemic control w/ adequate po intake w/o need for dietary restriction in the setting of steroid med use 5) Maintain bowel regularity w/ adequate po intake and antidiarrhals PRN w/o exac of diarrhea/development of constipation Result Diagrams: 05/27/19 05:10 05/27/19 05:10 Microbiology and Other Data: Microbiology 05/25/19 17:20 Stool Gross Appearance - Final Stool C. difficile DNA Amplification - Final 027 Presumptive NEGATIVE Toxigenic C.diff NEGATIVE 05/25/19 12:25 Stool Gross Appearance - Final Stool Stool Lactoferrin - Final 05/25/19 10:10 Stool Occult Blood (CLAUDIA) - Final Stool Assess/Plan/Problems-Billing Ms Lindo is an 84 yo F who has a h/o COPD, HTN and vascular dementia who presented to the ER with c/o 1 month of diarrhea that was getting progressively worse with associated weakness. - Patient Problems (1) Ulcerative colitis Current Visit: Yes Status: Acute Code(s): K51.90 - ULCERATIVE COLITIS, UNSPECIFIED, WITHOUT COMPLICATIONS SNOMED Code(s): 61380708 Comment: Pathology showed inactive colitis which does not match the patient' s clinical picture. Continue solumedrol 20mg IV q8hr. Today she seems to be improved. Advance diet. Replace K. Follow stool frequency and abdominal pain. (2) HTN (hypertension) Current Visit: Yes Status: Acute Code(s): I10 - ESSENTIAL (PRIMARY) HYPERTENSION SNOMED Code(s): 45936692 Comment: BP is under good control on valsartan alone- continue to hold HCTZ. (3) COPD (chronic obstructive pulmonary disease) Current Visit: Yes Status: Acute Code(s): J44.9 - CHRONIC OBSTRUCTIVE PULMONARY DISEASE, UNSPECIFIED SNOMED Code(s): 57717205 Comment: No signs of exacerbation. Continue prn albuterol and incruse ellipta. (4) Dementia Current Visit: Yes Status: Acute Code(s): F03.90 - UNSPECIFIED DEMENTIA WITHOUT BEHAVIORAL DISTURBANCE SNOMED Code(s): 24577862 Comment: Provide supportive care. (5) DVT prophylaxis Current Visit: Yes Status: Acute Code(s): Z29.9 - ENCOUNTER FOR PROPHYLACTIC MEASURES, UNSPECIFIED SNOMED Code(s): 193576653 Comment: SQ heparin (6) DNR (do not resuscitate) Current Visit: Yes Status: Acute
[2019-05-27 11:08] LABS: Urine Appearance Cloudy; Urine Bacteria 1+ (Absent); Urine Bilirubin Negative (Negative); Urine Blood Negative (Negative); Urine Color Yellow; Urine Glucose Negative (Negative); Urine Ketones Negative (Negative); Urine Nitrite Negative (Negative); Urine Protein 1+(30 mg/dL) (Negative); Urine Red Blood Cell 1+(3-5/hpf) (Absent); Urine Specific Gravity 1.021 (1.010-1.030); Urine Squamous Epithelial Cell Present (Absent); Urine Urobilinogen Negative (Negative); Urine White Blood Cell 3+(>20/hpf) (Absent)
--- NOTE | 2019-05-27 17:39 | PN ---
Progress Note - Progress Note Date of Service: 05/27/19 Note: GI Follow up Patient seen and examined, felt well this morning but still having diarrhea. Pain better. tolerating diet. 7bm. No black or blood VS: 128/61, P-76, R-22, 98% RA Gen: alert, oriented x3 HEENT: At/nc, perrla, eomi, no jvp CVS: RRR s1s2 Resp: CTA b/l Abd: soft, mild ttp diffuse, BS+ Ext: no c/c/e Lab: Hgb - 10 WBC- 7.9 CRP 197->139 Impression Colitis on flex sig, inactive on bx Infectious workup negative Rec: CRP improving, clinically improving low residue diet May change to PO steroids when diarrhea slows, would do fairly rapid taper 30,20 ,10 q week Follow up Dr. Javier as outpatient. Praveen Rutledge DO 05/27/19 1977
[2019-05-27] MEDS: Valsartan TAB* 160 MG PO SCH (21:02)
[2019-05-28] MEDS: Heparin VIAL(*) 5000 UNITS/ML VIAL (FIVE THOUSAND) SUBCUT SCH ×3 (05:36→22:00)
[2019-05-28] MEDS: methylPREDNISolone SOD 40 MG* 1 ML VIAL IV SCH ×3 (05:37→21:59)
[2019-05-28] MEDS: PTO:Umeclidinium 62.5 MDI(NF) MDI INH SCH (07:19)
[2019-05-28] MEDS: Aspirin 81 mg CHEW TAB* 81 MG TAB.CHEW PO SCH (10:20)
[2019-05-28] MEDS: Multivitamins/Minerals TAB PO SCH (10:20)
[2019-05-28] MEDS: ACIDOPH PARACASEI B LACTIS PO SCH (10:21)
--- NOTE | 2019-05-28 13:56 | PN ---
Subjective Date of Service: 05/28/19 Interval History: Pt is feeling ok currently. She states this am she had crampy abdominal pain and then had a very loose BM. She has only had 2 BMs today. No SOB. She has not liked her food. Objective Active Medications: Albuterol (Ventolin Hfa Inhaler*) 2 puff INH Q4H PRN PRN Reason: SOB/WHEEZING Last Admin: 05/26/19 15:40 Dose: 2 puff Aspirin (Aspirin 81 Mg Chew Tab*) 81 mg PO DAILY [facility] Last Admin: 05/28/19 10:20 Dose: 81 mg Heparin Sodium (Porcine) (Heparin Vial(*)) 5,000 units SUBCUT Q8HR [facility] Last Admin: 05/28/19 05:36 Dose: 5,000 units Mesalamine (Mesalamine Dr Cap*) 800 mg PO TID [facility] Last Admin: 05/28/19 10:20 Dose: 800 mg Methylprednisolone Sodium Succinate (Solu-Medrol 40 Mg) 20 mg IV Q8H [facility] Last Admin: 05/28/19 05:37 Dose: 20 mg Morphine Sulfate (Morphine Inj (Syringe))*) 2 mg IV Q4H PRN PRN Reason: PAIN - MILD Multivitamins/Minerals (Theragran/Minerals Tab*) 1 tab PO DAILY [facility] Last Admin: 05/28/19 10:20 Dose: 1 tab Nft: L.Acidoph, Paracasei, B.Lactis [Probiotic] 1 Each 1 each PO DAILY [facility] Last Admin: 05/28/19 10:21 Dose: Not Given Umeclidinium [place] (Incruse Ellipta Mdi (Nf)) 1 inh INH DAILY [facility] Last Admin: 05/28/19 07:19 Dose: 1 puff Valsartan (Diovan Tab*) 160 mg PO BEDTIME [facility] Last Admin: 05/27/19 21:02 Dose: 160 mg Vital Signs - 8 hr 05/28/19 05/28/19 05/28/19 07:15 07:22 11:15 Temperature 97.7 F 97.6 F Pulse Rate 92 94 88 Respiratory 17 16 16 Rate Blood Pressure 143/65 135/63 (mmHg) O2 Sat by Pulse 96 96 93 Oximetry Oxygen Devices in Use Now: None Appearance: Elderly female sitting up in bed, NAD Eyes: No Scleral Icterus Ears/Nose/Mouth/Throat: Mucous Membranes Moist Respiratory: Symmetrical Chest Expansion and Respiratory Effort, Clear to Auscultation - diminished throughout Cardiovascular: NL Sounds; No Murmurs; No JVD, RRR, No Edema Abdominal: - - BS+ soft, NT, ND Extremities: No Clubbing, Cyanosis Skin: No Nodules or Sclerosis Neurological: - - alert, mildly confused - Nutrition: Malnutrition Diagnosis/Plan Malnutrition Assessment by Registered Dietitian: Malnutrition Assessment Clinical Characteristics Acute,Severe Malnutrition Assessment: Inadequate Oral Intake - Pt's daughter reports Criteria reduced intake on BRAT diet x2 wks; currently on clear liquid diet - anticipate meeting <50% nutrient needs >5 days (severe) Unintentional Weight Loss - She reports unintentional wt loss x2 wks; current wt 125lb, UBW 130lb x2 wks ago - 3.8% loss x2 wks (severe ) Malnutrition Assessment: Nutritional Supplementals/Nourishments - Will Interventions send Apple Ensure Clear (240kcal, 8g prot/serv) w/ B, L, and D daily to optimize kcal/prot; will monitor acceptance. GI Related - Recommend giving antidiarrheal PRN ; will monitor GI s/sx for impact on intake and ability to advance diet. Glycemic Control - Will continue to monitor BG/ FS in the setting of steroid med use. Education - Recommend advancing diet to low fiber as able; will f/u for nutrition education as indicated. Malnutrition Assessment: Goals 1) Recommend advancing diet to low fiber as able 2) Adequate po intake to support lean body mass and hydration status 3) Improve fluid/electrolyte balance w/ adequate po intake and repletion PRN 4) Improve glycemic control w/ adequate po intake w/o need for dietary restriction in the setting of steroid med use 5) Maintain bowel regularity w/ adequate po intake and antidiarrhals PRN w/o exac of diarrhea/development of constipation Result Diagrams: 05/27/19 05:10 05/27/19 05:10 Microbiology and Other Data: Microbiology 05/25/19 17:20 Stool Gross Appearance - Final Stool C. difficile DNA Amplification - Final 027 Presumptive NEGATIVE Toxigenic C.diff NEGATIVE 05/25/19 12:25 Stool Gross Appearance - Final Stool Stool Lactoferrin - Final 05/25/19 10:10 Stool Occult Blood (CLAUDIA) - Final Stool Assess/Plan/Problems-Billing Ms Lindo is an 84 yo F who has a h/o COPD, HTN and vascular dementia who presented to the ER with c/o 1 month of diarrhea that was getting progressively worse with associated weakness. - Patient Problems (1) Ulcerative colitis Current Visit: Yes Status: Acute Code(s): K51.90 - ULCERATIVE COLITIS, UNSPECIFIED, WITHOUT COMPLICATIONS SNOMED Code(s): 53092374 Comment: Continued improvement in diarrhea and abdominal pain. Will continue solumedrol through tonight and change to prednisone tomorrow. Rapid taper has been recommended by GI. Continue low residue diet. (2) HTN (hypertension) Current Visit: Yes Status: Acute Code(s): I10 - ESSENTIAL (PRIMARY) HYPERTENSION SNOMED Code(s): 03283315 Comment: BP is under good control on valsartan alone- continue to hold HCTZ. (3) COPD (chronic obstructive pulmonary disease) Current Visit: Yes Status: Acute Code(s): J44.9 - CHRONIC OBSTRUCTIVE PULMONARY DISEASE, UNSPECIFIED SNOMED Code(s): 00296302 Comment: No signs of exacerbation. Continue prn albuterol and incruse ellipta. (4) Dementia Current Visit: Yes Status: Acute Code(s): F03.90 - UNSPECIFIED DEMENTIA WITHOUT BEHAVIORAL DISTURBANCE SNOMED Code(s): 28941886 Comment: Provide supportive care. (5) DVT prophylaxis Current Visit: Yes Status: Acute Code(s): Z29.9 - ENCOUNTER FOR PROPHYLACTIC MEASURES, UNSPECIFIED SNOMED Code(s): 395972362 Comment: SQ heparin (6) DNR (do not resuscitate) Current Visit: Yes Status: Acute
[2019-05-28] MEDS ORDERED: Cephalexin CAP* 250 MG PO SCH (14:00)
[2019-05-28] MEDS: Valsartan TAB* 160 MG PO SCH (21:59)
[2019-05-29] MEDS: Heparin VIAL(*) 5000 UNITS/ML VIAL (FIVE THOUSAND) SUBCUT SCH ×3 (06:25→21:55)
[2019-05-29] MEDS: PTO:Umeclidinium 62.5 MDI(NF) MDI INH SCH (08:55)
[2019-05-29] MEDS: predniSONE TAB* 10 MG PO SCH (09:04)
[2019-05-29] MEDS: Aspirin 81 mg CHEW TAB* 81 MG TAB.CHEW PO SCH (09:04)
[2019-05-29] MEDS: Multivitamins/Minerals TAB PO SCH (09:04)
[2019-05-29] MEDS: Cephalexin CAP* 250 MG PO SCH ×2 (09:05→21:54)
[2019-05-29] MEDS: ACIDOPH PARACASEI B LACTIS PO SCH (09:07)
--- NOTE | 2019-05-29 12:51 | PN ---
Subjective Date of Service: 05/29/19 Interval History: Pt has had 4 loose BM's today, denies BRBPR, denies abd pain Objective Active Medications: Albuterol (Ventolin Hfa Inhaler*) 2 puff INH Q4H PRN PRN Reason: SOB/WHEEZING Last Admin: 05/26/19 15:40 Dose: 2 puff Aspirin (Aspirin 81 Mg Chew Tab*) 81 mg PO DAILY [facility] Last Admin: 05/29/19 09:04 Dose: 81 mg Cephalexin HCl (Keflex Cap*) 250 mg PO BID [facility] Last Admin: 05/29/19 09:05 Dose: 250 mg Heparin Sodium (Porcine) (Heparin Vial(*)) 5,000 units SUBCUT Q8HR [facility] Last Admin: 05/29/19 06:25 Dose: 5,000 units Mesalamine (Mesalamine Dr Cap*) 800 mg PO TID [facility] Last Admin: 05/29/19 09:04 Dose: 800 mg Morphine Sulfate (Morphine Inj (Syringe))*) 2 mg IV Q4H PRN PRN Reason: PAIN - MILD Multivitamins/Minerals (Theragran/Minerals Tab*) 1 tab PO DAILY [facility] Last Admin: 05/29/19 09:04 Dose: 1 tab Nft: L.Acidoph, Paracasei, B.Lactis [Probiotic] 1 Each 1 each PO DAILY [facility] Last Admin: 05/29/19 09:07 Dose: Not Given Prednisone (Deltasone Tab*) 30 mg PO DAILY [facility] Last Admin: 05/29/19 09:04 Dose: 30 mg Umeclidinium [place] (Incruse Ellipta Mdi (Nf)) 1 inh INH DAILY [facility] Last Admin: 05/29/19 08:55 Dose: 1 puff Valsartan (Diovan Tab*) 160 mg PO BEDTIME [facility] Last Admin: 05/28/19 21:59 Dose: 160 mg Vital Signs - 8 hr 05/29/19 05/29/19 07:15 08:00 Temperature 97.3 F Pulse Rate 77 88 Respiratory 16 16 Rate Blood Pressure 163/75 (mmHg) O2 Sat by Pulse 90 91 Oximetry Oxygen Devices in Use Now: None Appearance: 84 yo F in nAD, aAOx3 Eyes: No Scleral Icterus, PERRLA Ears/Nose/Mouth/Throat: NL Teeth, Lips, Gums, Mucous Membranes Moist Neck: NL Appearance and Movements; NL JVP, Trachea Midline Respiratory: Symmetrical Chest Expansion and Respiratory Effort, Clear to Auscultation, - - mild wheezing on asculation of larynx noted Cardiovascular: NL Sounds; No Murmurs; No JVD, RRR Abdominal: NL Sounds; No Tenderness; No Distention, No Hepatosplenomegaly Lymphatic: No Cervical Adenopathy Extremities: No Edema Skin: No Rash or Ulcers, No Nodules or Sclerosis Neurological: Alert and Oriented x 3, NL Muscle Strength and Tone - Nutrition: Malnutrition Diagnosis/Plan Malnutrition Assessment by Registered Dietitian: Malnutrition Assessment Clinical Characteristics Acute,Severe Malnutrition Assessment: Inadequate Oral Intake - Pt's daughter reports Criteria reduced intake on BRAT diet x2 wks; currently on clear liquid diet - anticipate meeting <50% nutrient needs >5 days (severe) Unintentional Weight Loss - She reports unintentional wt loss x2 wks; current wt 125lb, UBW 130lb x2 wks ago - 3.8% loss x2 wks (severe ) Malnutrition Assessment: Nutritional Supplementals/Nourishments - Will Interventions send Apple Ensure Clear (240kcal, 8g prot/serv) w/ B, L, and D daily to optimize kcal/prot; will monitor acceptance. GI Related - Recommend giving antidiarrheal PRN ; will monitor GI s/sx for impact on intake and ability to advance diet. Glycemic Control - Will continue to monitor BG/ FS in the setting of steroid med use. Education - Recommend advancing diet to low fiber as able; will f/u for nutrition education as indicated. Malnutrition Assessment: Goals 1) Recommend advancing diet to low fiber as able 2) Adequate po intake to support lean body mass and hydration status 3) Improve fluid/electrolyte balance w/ adequate po intake and repletion PRN 4) Improve glycemic control w/ adequate po intake w/o need for dietary restriction in the setting of steroid med use 5) Maintain bowel regularity w/ adequate po intake and antidiarrhals PRN w/o exac of diarrhea/development of constipation Result Diagrams: 05/27/19 05:10 05/27/19 05:10 Microbiology and Other Data: Microbiology 05/25/19 17:20 Stool Gross Appearance - Final Stool C. difficile DNA Amplification - Final 027 Presumptive NEGATIVE Toxigenic C.diff NEGATIVE 05/25/19 12:25 Stool Gross Appearance - Final Stool Stool Lactoferrin - Final 05/25/19 10:10 Stool Occult Blood (CLAUDIA) - Final Stool Assess/Plan/Problems-Billing Ms Lindo is an 84 yo F who has a h/o COPD, HTN and vascular dementia who presented to the ER with c/o 1 month of diarrhea that was getting progressively worse with associated weakness. - Patient Problems (1) COPD (chronic obstructive pulmonary disease) Comment: mild laryngospasm on eval today, chronic after ambulation -as per pt. Continue prn albuterol and incruse ellipta. (2) HTN (hypertension) Comment: BP is under good control on valsartan alone- continue to hold HCTZ. (3) Ulcerative colitis Comment: still diarrhea today, but no abdominal pain. Will continue prednisone . Rapid taper has been recommended by GI. Continue low residue diet. (4) UTI (urinary tract infection) Comment: urine cx positive for E. coli. Keflex started on 05/28 Plan for 5 days of tx (5) DVT prophylaxis Comment: SQ heparin Status and Disposition: inpatient
[2019-05-29] MEDS: Valsartan TAB* 160 MG PO SCH (21:54)
[2019-05-30] MEDS: Heparin VIAL(*) 5000 UNITS/ML VIAL (FIVE THOUSAND) SUBCUT SCH ×2 (07:36→13:27)
[2019-05-30] MEDS: PTO:Umeclidinium 62.5 MDI(NF) MDI INH SCH (07:48)
[2019-05-30] MEDS: Cephalexin CAP* 250 MG PO SCH (07:51)
[2019-05-30] MEDS: predniSONE TAB* 10 MG PO SCH (07:51)
[2019-05-30] MEDS: Aspirin 81 mg CHEW TAB* 81 MG TAB.CHEW PO SCH (07:51)
[2019-05-30] MEDS: Multivitamins/Minerals TAB PO SCH (07:51)
[2019-05-30] MEDS: ACIDOPH PARACASEI B LACTIS PO SCH (07:52)
[2019-05-30 11:49] VITALS: BP 130/60
[2019-05-30] MEDS ORDERED: Hydrochlorothiazide TAB* 25 MG PO ONE (12:24)
[2019-05-30 12:32] LABS: Hematocrit 36 % (35-47); Hemoglobin 12.1 g/dL (12.0-16.0); Mean Corpuscular HGB Conc 34 g/dL (31-36); Mean Corpuscular Hemoglobin 28 pg (27-31); Mean Corpuscular Volume 84 fL (80-97); Mean Platelet Volume 7.1 fL (7.4-10.4); Platelet Count 479 10^3/uL (150-450); Red Blood Count 4.28 10^6 /uL (3.70-4.87); Red Cell Distribution Width 14 % (10-15); White Blood Count 6.7 10^3/uL (3.5-10.8)
[2019-05-30 12:36] LABS: ABS Lymphocytes 0.6 10^3/ul (1.0-4.8); ABS Monocytes 0.4 10^3/ul (0-0.8); ABS Neutrophils 5.7 10^3/ul (1.5-7.7); Eosinophil % 0.3 %; Lymphocyte % 9.6 %
[2019-05-30 12:47] LABS: BUN/Creatinine Ratio 31.7 (8-20); Calcium 8.3 mg/dL (8.6-10.3); EGFR African American 115.8 (>60); EGFR Non-African American 95.7 (>60); Magnesium 1.9 mg/dL (1.9-2.7); Potassium 3.7 mmol/L (3.5-5.0)
[2019-05-30] MEDS ORDERED: NS 0.9% 1000 ML** 1,000 ML IV ONE (12:55)
--- NOTE | 2019-05-31 21:59 | DS ---
CC: Dr. Gil * DISCHARGE SUMMARY: DATE OF ADMISSION: 05/25/19 DATE OF DISCHARGE: 05/30/19 PROVIDER: Amanda Langley NP. ATTENDING PHYSICIAN: Dr. Self.* (DICTATED BY AMANDA LANGLEY NP) PRIMARY CARE PHYSICIAN: Dr. Gil. CONSULTING PHYSICIAN: Dr. Javier. PRIMARY DIAGNOSES: 1. Ulcerative colitis. 2. Urinary tract infection. SECONDARY DIAGNOSES: 1. Chronic obstructive pulmonary disease. 2. Hypertension. PROCEDURES: The colonoscopy revealed diverticulosis in the sigmoid colon and pancolitis visually consistent with ulcerative colitis and intravenous prednisone suggested, but no indication for any antibiotics. DIAGNOSTIC STUDIES/LAB DATA: Studies included an abdomen and pelvis CT scan, which showed diffuse colonic thickening throughout the colon, remnant suspicion for colitis, and cholelithiasis was found without biliary duct dilatation. Pertinent Labs: Platelet count of 479. BUN and creatinine ratio of 31.7, glucose 124, calcium 8.3, C-reactive protein 139.36. Urine was positive for +1 protein, trace leukocyte esterase, 3+ white blood cell count, 1+ rbc's, 1+ urine bacteriemia, present hyaline casts and ascorbic acid. HOSPITAL COURSE: This is an 84-year-old female with a past medical history significant for COPD, hypertension, and vascular dementia who was admitted on after having persistent diarrhea of about 5 to 10 stools a day for the past month. Hemoccult was positive. Dr. Javier was consulted and she underwent colonoscopy on 05/25/19, which revealed the pancolitis, which was suggestive of ulcerative colitis and diverticulosis of the sigmoid colon. The patient was medically managed with IV fluids and prednisone. During the course of stay, the patient was also found to have had a urinary tract infection that was positive for E. coli and the patient was placed on cephalexin 250 mg p.o. b.i.d. for 5 days. On the day of discharge, the patient denied any chest pain, shortness of breath, abdominal pain, nausea, vomiting, though she had 2 loose bowel movements that morning. She stated that otherwise she felt well and was ready to go home. REVIEW OF SYSTEMS: An 11-point system review was completed, which was positive for loose stools. PHYSICAL EXAMINATION: Vital Signs: 98.3 temperature, 78 pulse, 18 respirations , 93% oxygen on room air, and 130/60 blood pressure. General: This is a well- developed older woman, seen sitting up in bed, in no acute distress. Eyes: Conjunctivae pink and moist. EOMs intact. PERRLA. ENT: Oropharynx is clear. Mucous membranes slightly dry. Neck: Supple. Cardiac: S1, S2 present. Heart rate regular. No murmurs, gallops, or rubs appreciated. Pulmonary: Lung sounds diminished at bases; otherwise, clear throughout bilaterally on room air. Abdomen was soft, nondistended, diffusely tender throughout. Normoactive bowel sounds x4. Musculoskeletal: No clubbing or cyanosis of digits , able to move all extremities. Neurologic: No focal deficits appreciated. Sensation intact to light touch throughout. Strength 5/5 to bilateral upper and lower extremities. Skin: No open areas appreciated. DISCHARGE PLAN: 1. Ulcerative colitis. The patient is to do diet as tolerated, stick with bland non-spicy foods for the next week, preferably soft texture. To continue mesalamine 800 mg t.i.d. for a total of 6 weeks, though was only able to order 1 month's worth of medication. Also, to continue prednisone taper starting with 30 mg to continue over the next 5 days and then decrease it by 10 mg every 7 days down to 0. 2. UTI. The patient is to stay hydrated, drink extra fluids, and take Keflex twice a day for the next 7 days. 3. Hypertension. Continue the valsartan. 4. COPD. Continue the Ellipta. DISCHARGE INSTRUCTIONS: The patient is to return to the hospital if she notices any blood in her stools or any increased nausea, vomiting, abdominal pain, or worsening of diarrhea. CONTINUED MEDICATIONS: 1. Aspirin 81 mg p.o. daily. 2. Cephalexin 250 mg p.o. b.i.d. for 7 days. 3. Lactobacillus 1 tablet p.o. daily. 4. Magnesium oxide 400 mg p.o. daily. 5. Mesalamine 800 mg p.o. t.i.d. x6 weeks. 6. Multivitamin 1 tab p.o. daily. 7. Prednisone 30 mg p.o. daily times the next 5 days and then taper down by 10 mg every 7 days until down to 0. 8. Ellipta 62.5 mcg 1 inhalation daily. 9. Valsartan 160 mg p.o. daily. CONDITION UPON DISCHARGE: Fair. DISPOSITION: To home. TIME SPENT: Time spent on this patient is greater than 30 minutes. AMANDA LANGLEY, MARGARET [id number]/[facility] #: [id number] MTDCristin
== END 2019-05-30 14:45 | disposition home or self-care (01) | DRG 385 ==
LOC: ED 09:59 → MED 14:00
PROVIDERS: ADMIT Hospitalist; ATTEND Internal Medicine
PROC: 0DDN8ZX Extraction of Sigmoid Colon, Via Natural or Artificial Opening Endoscopic, Diagnostic (ICD-10-PCS; principal; 2019-05-25)
PROC: 0D9N8ZX Drainage of Sigmoid Colon, Via Natural or Artificial Opening Endoscopic, Diagnostic (ICD-10-PCS; 2019-05-25)
DX: K51.90 Ulcerative colitis, unspecified, without complications (principal); E43 Unspecified severe protein-calorie malnutrition; N39.0 Urinary tract infection, site not specified; E87.6 Hypokalemia; E83.42 Hypomagnesemia; J44.9 Chronic obstructive pulmonary disease, unspecified; F01.50 Vascular dementia, unspecified severity, without behavioral disturbance, psychotic disturbance, mood disturbance, and anxiety; I10 Essential (primary) hypertension; Z66 Do not resuscitate; B96.20 Unspecified Escherichia coli [E. coli] as the cause of diseases classified elsewhere; K57.30 Diverticulosis of large intestine without perforation or abscess without bleeding; Z96.641 Presence of right artificial hip joint; Z88.2 Allergy status to sulfonamides; Z79.82 Long term (current) use of aspirin; Z79.899 Other long term (current) drug therapy; Z80.1 Family history of malignant neoplasm of trachea, bronchus and lung; Z80.42 Family history of malignant neoplasm of prostate; Z87.891 Personal history of nicotine dependence
CPT/HCPCS: 36415; 74177; 80048; 80053; 81003; 81015; 82150; 82272; 83605; 83630; 83690; 83735; 83880; 84484; 85025; 85027; 85610; 86140; 87045; 87046; 87077; 87086; 87177; 87186; 87209; 87328; 87329; 87493; 87899; 88305; 94640; 96361; 96365; 96367; 99156; 99157; 99284; A9270-GY; J1644; J2250; J2920; J3010; J3475; J3480; J3535; J7512; Q9967